=== PATIENT | female | born 1930 | race Caucasian/White ===

== ENCOUNTER 2020-01-29 13:13 | Inpatient (IN) | payer MEDICARE ==
[~2020-01-29] VITALS: Ht 157.5 cm; Wt 69.9 kg
[2020-01-29] VITALS (9 sets, daily range): BP systolic 111–138; BP diastolic 52–67
--- NOTE | 2020-01-29 13:29 | EKG ---
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
[2020-01-29] MEDS ORDERED: IV NORMAL SALINE 1,000ML 1,000 ML IV ONE (13:30)
--- NOTE | 2020-01-29 13:31 | PHYS DOC ---
General Adult EDM: Chief Complaint: WEAKNESS/GENERALIZED HPI: HPI: 89-year-old female presents with increasing weakness for the last 5 days. She was in [place] visiting family until Saturday. She came back and has been feeling increasingly weak and tired all week. She denies any chest pain, shortness of breath, trauma, or falls. She just feels like she is a lot more tired. She denies fever or chills. She was initially reported as possible stroke, but the patient is alert oriented, able to answer all questions, and has no focal signs of deficit. Review of Systems: Review of Systems: Constitutional: General weakness. Denies fever or chills Eyes: Denies change in visual acuity HENT: Denies nasal congestion or sore throat Respiratory: Denies cough or shortness of breath Cardiovascular: Denies chest pain or edema GI: Denies abdominal pain, nausea, vomiting, bloody stools or diarrhea : Denies dysuria Musculoskeletal: Denies back pain or joint pain Integument: Denies rash Neurologic: Denies headache, focal weakness or sensory changes Endocrine: Denies polyuria or polydipsia Lymphatic: Denies swollen glands Psychiatric: Denies depression or anxiety Heart Score: Risk Factors: Risk Factors: DM, Current or recent (<one month) smoker, HTN, HLP, family history of CAD, obesity. Risk Scores: Score 0 - 3: 2.5% MACE over next 6 weeks - Discharge Home Score 4 - 6: 20.3% MACE over next 6 weeks - Admit for Clinical Observation Score 7 - 10: 72.7% MACE over next 6 weeks - Early Invasive Strategies Current Medications: Current Meds: Current Medications Medications (Trade) Dose Ordered Sig/Sheeba Start Time Stop Time Status Last Admin Dose Admin Sodium Chloride 1,000 ml @ 1,000 mls/hr 1X ONCE 01/29/20 13:30 01/29/20 14:29 UNV Physical Exam: PE: Constitutional: Well developed, well nourished, no acute distress, non-toxic appearance. [] HENT: Normocephalic, atraumatic, bilateral external ears normal, oropharynx moist, no oral exudates, nose normal. [] Eyes: PERRLA, EOMI, conjunctiva normal, no discharge. [] Neck: Normal range of motion, no tenderness, supple, no stridor. [] Cardiovascular:Heart rate regular rhythm, no murmur [] Lungs & Thorax: Bilateral breath sounds clear to auscultation [] Abdomen: Bowel sounds normal, soft, no tenderness, no masses, no pulsatile masses. [] Skin: Warm, dry, no erythema, no rash. [] Back: No tenderness, no CVA tenderness. [] Extremities: No tenderness, no cyanosis, no clubbing, ROM intact, no edema. [] Neurologic: Alert and oriented X 3, normal motor function, normal sensory function, no focal deficits noted. [] Psychologic: Affect normal, judgement normal, mood normal. [] EKG: EKG: Sinus rhythm, rate 75, leftward axis, no ST elevations or depressions. Radiology/Procedures: Radiology/Procedures: [] Impressions: CHEST AP ONLY 01/29/2020 1:18 PM INDICATION: Weakness COMPARISON: None available TECHNIQUE: Portable frontal view of the chest is provided. FINDINGS: The cardiomediastinal silhouette is within normal limits. Lungs are clear. Calcified atheromatous plaque of thoracic aorta. There are no significant pleural effusions. There is no pulmonary vascular congestion. No pneumothorax. Mild glenohumeral osteoarthritis. IMPRESSION: There is no acute cardiopulmonary process. Electronically signed by: Edwige Wilkinson MD (01/29/2020 1:59 PM) [facility] DICTATED AND SIGNED BY: EDWIGE WILKINSON MD DATE: 01/29/20 1359 CC: OLY KURTZ DO; FREDIS MCCARTY MD ~ Course & Med Decision Making: Course & Med Decision Making Pertinent Labs and Imaging studies reviewed. (See chart for details) The patient's chest x-ray is unremarkable. Her labs are significant for hemoglobin of 5.6 and a hematocrit of 17.3. I have no previous for comparison. Do not see any active source of bleeding at this time. We will transfuse her 1 unit. I will admit her to the hospital. I spoke with Dr. Delgado and he has accepted the patient for admission. [] José Disclaimer: José Disclaimer: This electronic medical record was generated, in whole or in part, using a voice recognition dictation system. Departure Departure: Impression: Primary Impression: Anemia Qualified Codes: D64.9 - Anemia, unspecified Disposition: ADMITTED INPATIENT Admitting Physician: Wiliam Delgado Condition: STABLE Justification of Admission: Justification of Admission: Justification of Admission Dx: Yes Comments: Severe anemia with a hemoglobin of 5.6 OLY KURTZ DO Jan 29, 2020 13:31
[2020-01-29 13:50] LABS: BASO # 0.1 x10^3/uL (0.0-0.2); BASO % 1 % (0-3); EOS % 0 % (0-3); LYMPH # 1.5 x10^3/uL (1.0-4.8); LYMPH % 27 % (24-48); MEAN CORPUSCULAR HEMOGLOBIN 28 pg (25-35); MEAN CORPUSCULAR HGB CONC 32 g/dL (31-37); MEAN CORPUSCULAR VOLUME 88 fL (79-100); MONO # 0.3 x10^3/uL (0.0-1.1); MONO % 5 % (0-9); NEUT # 3.8 x10^3uL (1.8-7.7); NEUT % 67 % (31-73); PLATELET COUNT 218 x10^3/uL (140-400); RED BLOOD COUNT 1.97 x10^6/uL (3.50-5.40); RED CELL DISTRIBUTION WIDTH 16.1 % (11.5-14.5); WHITE BLOOD COUNT 5.6 x10^3/uL (4.0-11.0)
[2020-01-29 13:55] LABS: HEMATOCRIT 17.3 % (36.0-47.0); HEMOGLOBIN 5.6 g/dL (12.0-15.5)
[2020-01-29 13:58] LABS: CALCIUM 8.4 mg/dL (8.5-10.1); CREATININE 1.4 mg/dL (0.6-1.0); GFR 35.5; POTASSIUM 3.8 mmol/L (3.5-5.1)
--- NOTE | 2020-01-29 14:02 | RAD ---
CHEST AP ONLY 01/29/2020 1:18 PM INDICATION: Weakness COMPARISON: None available TECHNIQUE: Portable frontal view of the chest is provided. FINDINGS: The cardiomediastinal silhouette is within normal limits. Lungs are clear. Calcified atheromatous plaque of thoracic aorta. There are no significant pleural effusions. There is no pulmonary vascular congestion. No pneumothorax. Mild glenohumeral osteoarthritis. IMPRESSION: There is no acute cardiopulmonary process. Electronically signed by: Mague Judd MD (01/29/2020 1:59 PM) [facility]
[2020-01-29 14:03] LABS: ALBUMIN 2.9 g/dL (3.4-5.0); TOTAL BILIRUBIN 0.3 mg/dL (0.2-1.0); TOTAL PROTEIN 5.8 g/dL (6.4-8.2)
[2020-01-29] MEDS ORDERED: PANTOPRAZOLE IV 40 MG VIAL. IVP ONE (15:00)
[2020-01-29] MEDS ORDERED: ACET325O6 PO (21:30)
[2020-01-29] MEDS ORDERED: APIX5TAB3 PO (21:41)
[2020-01-29] MEDS ORDERED: MIRT45TA2 PO (21:41)
[2020-01-29] MEDS ORDERED: BISA5TAB4 PO (21:41)
[2020-01-29] MEDS ORDERED: METO25TA2 PO (21:41)
[2020-01-29] MEDS ORDERED: ATOR40TA PO (21:41)
[2020-01-29] MEDS ORDERED: ACET325T9 PO ×2 (21:41→21:42)
[2020-01-29] MEDS ORDERED: AMLO5TAB4 PO (21:41)
[2020-01-29] MEDS ORDERED: POLY17PO5 PO (21:41)
[2020-01-29] MEDS ORDERED: POTA10TA4 PO (21:41)
[2020-01-29 21:51] LABS: RED BLOOD COUNT 2.21 x10^6/uL (3.50-5.40); RED CELL DISTRIBUTION WIDTH 15.7 % (11.5-14.5); WHITE BLOOD COUNT 5.6 x10^3/uL (4.0-11.0)
[2020-01-29 21:53] LABS: HEMATOCRIT 19.5 % (36.0-47.0); HEMOGLOBIN 6.5 g/dL (12.0-15.5)
[2020-01-30] VITALS (8 sets, daily range): BP systolic 117–135; BP diastolic 55–68
[2020-01-30 07:16] LABS: BASO % 1 % (0-3); EOS # 0.1 x10^3/uL (0.0-0.7); EOS % 2 % (0-3); HEMATOCRIT 23.5 % (36.0-47.0); HEMOGLOBIN 8.1 g/dL (12.0-15.5); LYMPH # 1.6 x10^3/uL (1.0-4.8); LYMPH % 27 % (24-48); MEAN CORPUSCULAR HEMOGLOBIN 30 pg (25-35); MEAN CORPUSCULAR HGB CONC 34 g/dL (31-37); MEAN CORPUSCULAR VOLUME 87 fL (79-100); MONO # 0.5 x10^3/uL (0.0-1.1); MONO % 8 % (0-9); NEUT # 3.6 x10^3uL (1.8-7.7); NEUT % 62 % (31-73); PLATELET COUNT 205 x10^3/uL (140-400); RED BLOOD COUNT 2.72 x10^6/uL (3.50-5.40); RED CELL DISTRIBUTION WIDTH 14.8 % (11.5-14.5); WHITE BLOOD COUNT 5.7 x10^3/uL (4.0-11.0)
[2020-01-30 07:41] LABS: CALCIUM 8.1 mg/dL (8.5-10.1); CREATININE 1.2 mg/dL (0.6-1.0); GFR 42.4; POTASSIUM 3.8 mmol/L (3.5-5.1)
[2020-01-30] MEDS: PANTOPRAZOLE IV 40 MG VIAL. IVP SCH ×2 (08:39→20:27)
[2020-01-30 10:01] LABS: BACTERIA,URINE MANY /HPF (0-FEW); BILIRUBIN,URINE NEG (NEG); CLARITY,URINE HAZY; COLOR,URINE YELLOW; GLUCOSE,URINE NEG (NEG); NITRITE,URINE NEG (NEG); SQUAMOUS EPITHELIAL CELL,UR MOD /LPF; WBC,URINE >40 /HPF (0-4)
--- NOTE | 2020-01-30 18:27 | HP ---
ADMIT DATE: 01/29/2020 HISTORY OF PRESENT ILLNESS: The patient is an 89-year-old female patient who presented with increasing weakness over the last 5 days. She was in [place] visiting her family until Saturday. She came back and has been feeling increasingly weak and tired all the week; however, she denied any chest pain, shortness of breath, trauma or fall. She just feels like she is a lot more tired. Denied any fever or chills. She was initially reported as possible stroke. The patient was able to answer all questions. She has no focal deficits on arrival. She was basically extensively investigated in the Emergency Room and her lab work showed that she has severe normochromic normocytic anemia with hemoglobin only 5.6, hematocrit 17.3. She was admitted and was given 2 units of packed RBCs. She is on apixaban. PAST MEDICAL HISTORY: Significant for hypertension, hyperlipidemia, atrial fibrillation. She apparently has colon cancer, status post partial colectomy. ALLERGIES: She has no known drug allergies. MEDICATIONS: She is currently on apixaban 5 mg twice a day, atorvastatin calcium 40 mg daily, metoprolol succinate 12.5 mg daily, amlodipine besylate 5 mg daily, Tylenol 650 mg every 4 hours, mirtazapine 45 mg at bedtime, potassium citrate 10 mEq once a day, bisacodyl 5 mg tablet 3 times a week and polyethylene glycol 17 g daily. FAMILY HISTORY: Noncontributory. SOCIAL HISTORY: She lives with one of her daughters. She does not smoke, drink alcohol or use recreational drugs. 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 LABORATORY DATA: Her lab work on arrival showed a white cell count 5600, hemoglobin 5.6, hematocrit 17.3, MCV 88 and platelet count 218,000 with normal manual differential. Her chemistry showed a serum sodium 137, potassium 3.8, chloride 104, bicarbonate 25, anion gap of 8, BUN 29, creatinine 1.4, estimated GFR was 35 mL per minute. Her glucose 174, calcium was 8.4. Her total bilirubin, AST, ALT, alkaline phosphatase were normal. Total protein was 5.8, albumin was 2.9. Her urinalysis showed that the urine was yellow, hazy with a pH of 5.5, specific gravity of 1.020. The urine was negative for protein, glucose, ketones, blood, nitrite, and small amount of leukocyte esterase, 1-2 rbc's, more than 40 wbc's, and she has too many bacteria. ASSESSMENT AND PLAN: In summary, this is an 89-year-old female patient who was admitted with worsening weakness and easy fatigability. She was found to have normochromic normocytic anemia, likely due to blood loss, although she is already on apixaban. Denied using any nonsteroidal anti-inflammatory medication. Denied any hematemesis, melena or hematochezia. Denied any hemoptysis or epistaxis. She apparently was admitted, typed and crossed 2 units of packed RBCs. We will also order her iron studies and stool for occult blood. We will hold her apixaban and put her on a clear liquid diet and follow her H and H closely. ALEX TERAN MD DR: ASHLYN/yong JOB#: [id number] / [id number]
[2020-01-30 18:53] LABS: HEMATOCRIT 26.7 % (36.0-47.0); HEMOGLOBIN 8.9 g/dL (12.0-15.5)
[2020-01-31 04:56] VITALS: BP 118/56
[2020-01-31 07:00] VITALS: BP 116/62
[2020-01-31 07:13] LABS: HEMATOCRIT 24.1 % (36.0-47.0); HEMOGLOBIN 8.1 g/dL (12.0-15.5); RED BLOOD COUNT 2.73 x10^6/uL (3.50-5.40); RED CELL DISTRIBUTION WIDTH 15.1 % (11.5-14.5)
[2020-01-31 07:29] LABS: ALBUMIN 2.6 g/dL (3.4-5.0); CALCIUM 8.2 mg/dL (8.5-10.1); CREATININE 1.3 mg/dL (0.6-1.0); GFR 38.7; POTASSIUM 3.7 mmol/L (3.5-5.1); TOTAL BILIRUBIN 0.5 mg/dL (0.2-1.0); TOTAL PROTEIN 5.1 g/dL (6.4-8.2)
--- NOTE | 2020-01-31 08:18 | PN ---
DATE: 01/30/2020 SUBJECTIVE: The patient is resting, slightly propped up in bed, in no apparent respiratory distress. She is awake, alert, responding mostly appropriately. She denied any complaint. She did receive 2 units of packed RBCs. Her H and H was 8.1 and 23.5. PHYSICAL EXAMINATION: GENERAL: On examining her, she looked well and was clearly in no apparent respiratory distress. No pallor, jaundice, cyanosis, or thyromegaly. No jugular venous distention or limb edema. VITAL SIGNS: Her heart rate was 74, blood pressure was 132/82, temperature was 98.7, respiratory rate 20, and oxygen saturation was 96%. HEAD, EYES, EARS, NOSE AND THROAT: Normocephalic, atraumatic. NECK: Supple. HEART: Showed normal first and second sounds. No gallop, rub or murmur. CHEST: Clear to auscultation. No crepitation or rhonchi. ABDOMEN: Distended, soft, nontender. NEUROLOGIC: She is awake, alert, responding appropriately. All cranial nerves intact. She moves extremities without difficulty. LABORATORY DATA: Her lab work this morning showed a white cell count 5700, hemoglobin 8.1, hematocrit 23.5, MCV 87 and platelet count 205,000. Her chemistry showed a serum sodium 141, potassium 3.8, chloride 109, bicarbonate 24, anion gap of 8, BUN 23, creatinine 1.2, estimated GFR was 42 mL per minute. Her glucose was 96, calcium was 8.1. Total serum iron was 47, TIBC was 337 and iron saturation was 14%. ASSESSMENT: In summary, this is an 89-year-old female patient who came in with marked weakness due to severe anemia that is normochromic, normocytic. She does have also mild acute on chronic kidney injury and protein-calorie malnutrition, serum albumin is only 2.9. She apparently was on apixaban for atrial fibrillation; however, now she is in sinus rhythm. We held her apixaban. I think this needs to be discontinued altogether. She needs to be evaluated by custodial manager. We spoke with her daughter who stated that she has colonoscopy on yearly basis. I would repeat her H and H tonight and again tomorrow morning. ALEX TERAN MD DR: ASHLYN/yong JOB#: [id number] / [id number]
[2020-01-31] MEDS: PANTOPRAZOLE IV 40 MG VIAL. IVP SCH (09:00)
[2020-01-31 11:00] VITALS: BP 116/62
--- NOTE | 2020-01-31 17:53 | DS ---
DATE OF DISCHARGE: 01/31/2020 HOSPITAL COURSE: The patient is an 89-year-old female patient, who was brought to the Emergency Room with generalized weakness and easy fatigability. On evaluating her in the Emergency Room, she was found to be extremely anemic with hemoglobin 5.6, hematocrit 17.3, her MCV was 88 which is well within normal limits, indicating that she probably has lost blood recently. However, her serum iron was low as well as the iron saturation. The TIBC was on the higher side at 337 indicating that she has also element of chronic blood loss. She has very poor memory; however, we spoke with her daughter and said that she ____ yearly colonoscopy by ____. She is on apixaban for atrial fibrillation. The patient had received 2 units of packed RBCs and she remained stable. She usually follows with ____. A decision was made to discharge her home to follow with him as an outpatient. PHYSICAL EXAMINATION: GENERAL: When I examined her this afternoon, she looked somewhat pale, but no jaundice, cyanosis or thyromegaly. No lymphadenopathy, no thyromegaly. No jugular venous distention. No limb edema. VITAL SIGNS: Her heart rate was 68, blood pressure 116/62, temperature was 97.8, respiratory rate 15 and oxygen saturation was 98%. HEAD, EYES, EARS, NOSE AND THROAT: Showed normocephalic, atraumatic. NECK: Supple. HEART: Showed normal first and second heart sounds. No gallop or murmur. CHEST: Clear to auscultation. No crepitation or rhonchi. ABDOMEN: Slightly distended, soft, nontender. NEUROLOGIC: She is somewhat hard of hearing, but otherwise all cranial nerves intact. EXTREMITIES: She moves extremities without difficulty. She ambulates without assistance or assistive devices. LABORATORY DATA: Showed a white cell count 5000, hemoglobin 8.1, hematocrit 24, MCV 88 and platelet count 232,000. Her chemistry showed a serum sodium 139, potassium 3.7, chloride 108, bicarbonate 25, anion gap of 6, BUN 24, creatinine was 1.3. Estimated GFR was 38 mL per minute. Her glucose was 92. Calcium was 8.2. Total bilirubin, AST, ALT, alkaline phosphatase were normal. Total protein was 5.1, albumin was 2.6. DISCHARGE MEDICATIONS: The patient will be discharged home to continue on Tylenol 650 mg every 4 hours as needed, amlodipine besylate 5 mg daily, atorvastatin calcium 40 mg at bedtime, bisacodyl 5 mg tablet once a day, metoprolol succinate 25 mg once a day, mirtazapine for Remeron 45 mg at bedtime and polyethylene glycol 17 grams daily, potassium chloride 10 mEq daily. We did discontinue her apixaban as she is definitely bleeding. FINAL DISCHARGE DIAGNOSES: 1. Acute blood loss anemia with marked weakness due to severe anemia. 2. She has also element of acute on chronic kidney injury. 3. Protein-calorie malnutrition. 4. Atrial fibrillation, rate controlled, well anticoagulated. 5. Hypertension. 6. Hyperlipidemia. She apparently had colon cancer, status post partial colectomy with end-to-end anastomosis and she gets colonoscopies yearly. 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 ALEX TERAN MD DR: ASHLYN/yong JOB#: [id number] / [id number]
== END 2020-01-31 15:30 | disposition home or self-care (01) | DRG 811 ==
LOC: ER 13:13 → 1 SOUTH 16:33 → ICU 16:34
PROVIDERS: ADMIT Internal Medicine; ATTEND Internal Medicine
PROC: 30233N1 Transfusion of Nonautologous Red Blood Cells into Peripheral Vein, Percutaneous Approach (ICD-10-PCS; principal; 2020-01-31)
DX: D62 Acute posthemorrhagic anemia (principal); E43 Unspecified severe protein-calorie malnutrition; N17.9 Acute kidney failure, unspecified; G81.94 Hemiplegia, unspecified affecting left nondominant side; E78.5 Hyperlipidemia, unspecified; I48.91 Unspecified atrial fibrillation; N18.9 Chronic kidney disease, unspecified; I12.9 Hypertensive chronic kidney disease with stage 1 through stage 4 chronic kidney disease, or unspecified chronic kidney disease; Z68.28 Body mass index [BMI] 28.0-28.9, adult; Z90.49 Acquired absence of other specified parts of digestive tract; Z85.038 Personal history of other malignant neoplasm of large intestine; Z86.73 Personal history of transient ischemic attack (TIA), and cerebral infarction without residual deficits
CPT/HCPCS: 36415; 71045; 80048; 80053; 81001; 83540; 83550; 84484; 85014; 85018; 85025; 85027; 86850; 86900; 86901; 86920; 87086; 93005; 96361; 96374; C9113; P9016; 99285-25; J7030

== ENCOUNTER 2020-04-03 12:38 | Emergency (ER) | payer MEDICARE ==
[~2020-04-03] VITALS: Ht 157.5 cm; Wt 68.0 kg
[~2020-04-03 12:38] MED LIST: ACET325O6 PO; ACET325T9 PO; AMLO5TAB4 PO; APIX5TAB3 PO; ATOR40TA PO; BISA5TAB4 PO; METO25TA2 PO; MIRT45TA2 PO; POLY17PO5 PO; POTA10TA4 PO
[2020-04-03] MEDS ORDERED: IV NORMAL SALINE 500ML 500 ML IV ONE (13:00)
[2020-04-03 13:16] LABS: BASO # 0.1 x10^3/uL (0.0-0.2); BASO % 1 % (0-3); EOS # 0.1 x10^3/uL (0.0-0.7); EOS % 1 % (0-3); HEMATOCRIT 41.7 % (36.0-47.0); HEMOGLOBIN 13.2 g/dL (12.0-15.5); LYMPH # 1.7 x10^3/uL (1.0-4.8); LYMPH % 24 % (24-48); MEAN CORPUSCULAR HEMOGLOBIN 29 pg (25-35); MEAN CORPUSCULAR HGB CONC 32 g/dL (31-37); MEAN CORPUSCULAR VOLUME 90 fL (79-100); MONO # 0.5 x10^3/uL (0.0-1.1); MONO % 8 % (0-9); NEUT # 4.8 x10^3uL (1.8-7.7); NEUT % 67 % (31-73); PLATELET COUNT 260 x10^3/uL (140-400); RED BLOOD COUNT 4.62 x10^6/uL (3.50-5.40); RED CELL DISTRIBUTION WIDTH 16.5 % (11.5-14.5); WHITE BLOOD COUNT 7.1 x10^3/uL (4.0-11.0)
[2020-04-03 13:21] LABS: CALCIUM 9.7 mg/dL (8.5-10.1); CREATININE 1.8 mg/dL (0.6-1.0); GFR 26.6; POTASSIUM 4.5 mmol/L (3.5-5.1)
[2020-04-03 13:27] LABS: ALBUMIN 3.6 g/dL (3.4-5.0); ALBUMIN/GLOBULIN RATIO 1.2 (1.0-1.7); TOTAL BILIRUBIN 0.7 mg/dL (0.2-1.0); TOTAL PROTEIN 6.7 g/dL (6.4-8.2)
[2020-04-03] MEDS ORDERED: dilTIAZem 25 MG/5 ML VIAL IVP ONE (13:30)
[2020-04-03] MEDS ORDERED: IV NORMAL SALINE 1,000ML 1,000 ML IV ONE (13:30)
--- NOTE | 2020-04-03 13:32 | RAD ---
AP portable chest 04/03/2020. Reason for exam: Tachycardia. Shortness of breath. Comparison is made with a study of 01/29/2020. No new infiltrate is seen. There is no apparent pleural fluid. The heart is mildly enlarged, but appears unchanged. IMPRESSION: Stable radiographic appearance. Electronically signed by: Christos Benítez Jr., MD (04/03/2020 1:29 PM) [id number]
--- NOTE | 2020-04-03 13:36 | PHYS DOC ---
Past History Past Medical History: A-Fib, Cancer, Constipation, High Cholesterol, Hypertension Past Surgical History: Appendectomy, Cholecystectomy, Hysterectomy, Other Additional Past Surgical Histo: cancer surgery Alcohol Use: None General Adult EDM: Chief Complaint: WEAKNESS/GENERALIZED HPI: HPI: 89-year-old female accompanied by her daughter presents with weakness and tachycardia. Patient was recently diagnosed with atrial fibrillation. She is on Toprol. She presents today because her heart rate seemed high and she is feeling very tired. Most of her history comes from the daughter who accompanies her. The patient had a stroke within the last year and has made it difficult for her to formulate words. She does not in agreement to the history given and to my questions. Patient is also reported to have a possible GI bleed that she is getting worked up for by her primary physician. They are working on that this week. Patient denies fever chills. On arrival her heart rate is 139. Review of Systems: Review of Systems: Constitutional: Denies fever or chills. Fatigue. Eyes: Denies change in visual acuity HENT: Denies nasal congestion or sore throat Respiratory: Denies cough or shortness of breath Cardiovascular: Tachycardia. Denies chest pain or edema GI: Denies abdominal pain, nausea, vomiting, bloody stools or diarrhea : Denies dysuria Musculoskeletal: Denies back pain or joint pain Integument: Denies rash Neurologic: Denies headache, focal weakness or sensory changes Endocrine: Denies polyuria or polydipsia Lymphatic: Denies swollen glands Psychiatric: Denies depression or anxiety Heart Score: Risk Factors: Risk Factors: DM, Current or recent (<one month) smoker, HTN, HLP, family history of CAD, obesity. Risk Scores: Score 0 - 3: 2.5% MACE over next 6 weeks - Discharge Home Score 4 - 6: 20.3% MACE over next 6 weeks - Admit for Clinical Observation Score 7 - 10: 72.7% MACE over next 6 weeks - Early Invasive Strategies Current Medications: Current Meds: Current Medications Medications (Trade) Dose Ordered Sig/Sheeba Start Time Stop Time Status Last Admin Dose Admin Diltiazem HCl (Cardizem Iv Push) 10 mg 1X ONCE 04/03/20 13:30 04/03/20 13:31 DC Sodium Chloride 1,000 ml @ 1,000 mls/hr 1X ONCE 04/03/20 13:30 04/03/20 14:29 Allergies: Allergies: Allergies Coded Allergies Type Severity Reaction Last Updated Verified No Known Drug Allergies 01/29/20 No Physical Exam: PE: Constitutional: Well developed, well nourished, no acute distress, non-toxic appearance. [] HENT: Normocephalic, atraumatic, bilateral external ears normal, oropharynx moist, no oral exudates, nose normal. [] Eyes: PERRLA, EOMI, conjunctiva normal, no discharge. [] Neck: Normal range of motion, no tenderness, supple, no stridor. [] Cardiovascular: Heart rate 139, irregular rhythm, no murmur [] Lungs & Thorax: Bilateral breath sounds clear to auscultation [] Abdomen: Bowel sounds normal, soft, no tenderness, no masses, no pulsatile masses. [] Skin: Warm, dry, no erythema, no rash. [] Back: No tenderness, no CVA tenderness. [] Extremities: No tenderness, no cyanosis, no clubbing, ROM intact, no edema. [] Neurologic: Difficulty with word formulation. alert and oriented X 3, normal motor function, normal sensory function, no focal deficits noted. [] Psychologic: Affect normal, judgement normal, mood normal. [] Current Patient Data: Labs: Laboratory Tests Test 04/03/20 12:55 White Blood Count 7.1 x10^3/uL (4.0-11.0) Red Blood Count 4.62 x10^6/uL (3.50-5.40) Hemoglobin 13.2 g/dL (12.0-15.5) Hematocrit 41.7 % (36.0-47.0) Mean Corpuscular Volume 90 fL (79-100) Mean Corpuscular Hemoglobin 29 pg (25-35) Mean Corpuscular Hemoglobin Concent 32 g/dL (31-37) Red Cell Distribution Width 16.5 % (11.5-14.5) H Platelet Count 260 x10^3/uL (140-400) Neutrophils (%) (Auto) 67 % (31-73) Lymphocytes (%) (Auto) 24 % (24-48) Monocytes (%) (Auto) 8 % (0-9) Eosinophils (%) (Auto) 1 % (0-3) Basophils (%) (Auto) 1 % (0-3) Neutrophils # (Auto) 4.8 x10^3uL (1.8-7.7) Lymphocytes # (Auto) 1.7 x10^3/uL (1.0-4.8) Monocytes # (Auto) 0.5 x10^3/uL (0.0-1.1) Eosinophils # (Auto) 0.1 x10^3/uL (0.0-0.7) Basophils # (Auto) 0.1 x10^3/uL (0.0-0.2) Sodium Level 136 mmol/L (136-145) Potassium Level 4.5 mmol/L (3.5-5.1) Chloride Level 102 mmol/L (98-107) Carbon Dioxide Level 21 mmol/L (21-32) Anion Gap 13 (6-14) Blood Urea Nitrogen 15 mg/dL (7-20) Creatinine 1.8 mg/dL (0.6-1.0) H Estimated GFR (Cockcroft-Gault) 26.6 BUN/Creatinine Ratio 8 (6-20) Glucose Level 127 mg/dL (70-99) H Calcium Level 9.7 mg/dL (8.5-10.1) Total Bilirubin 0.7 mg/dL (0.2-1.0) Aspartate Amino Transferase (AST) 16 U/L (15-37) Alanine Aminotransferase (ALT) 16 U/L (14-59) Alkaline Phosphatase 91 U/L (46-116) Troponin I Quantitative 0.031 ng/mL (0-0.055) Total Protein 6.7 g/dL (6.4-8.2) Albumin 3.6 g/dL (3.4-5.0) Albumin/Globulin Ratio 1.2 (1.0-1.7) EKG: EKG: [] Radiology/Procedures: Radiology/Procedures: [] Course & Med Decision Making: Course & Med Decision Making Pertinent Labs and Imaging studies reviewed. (See chart for details) The patient's EKG is significant for atrial fibrillation, rate 139. The patient 's labs are significant for an elevated creatinine of 1.8. This is a bit higher than her baseline of 1.3-1.4. I have given her 1.5 liters of normal saline. For her atrial fibrillation I gave the patient 10 mg of Cardizem IV. She cardioverted shortly after. Her heart rate is now 70. Pressure 126/74. The patient's urinalysis was suggestive of UTI. I will treat her with Keflex for 5 days. She is stable for discharge at this time. [] Dragon Disclaimer: Dragon Disclaimer: This electronic medical record was generated, in whole or in part, using a voice recognition dictation system. Departure Departure: Impression: Primary Impression: Atrial fibrillation Qualified Codes: I48.0 - Paroxysmal atrial fibrillation Additional Impression: UTI (urinary tract infection) Qualified Codes: N30.01 - Acute cystitis with hematuria Disposition: HOME/RESIDENCE PRIOR TO ADM Condition: STABLE Referrals: FREDIS MCCARTY MD (PCP) Patient Instructions: Atrial Fibrillation, Yyuq-[id number], Urinary Tract Infection, Aepw-ro-Idhp Scripts Cephalexin (KEFLEX) 500 Mg Capsule 1 CAP PO TID for UTI for 5 Days, #15 CAP 0 Refills Prov: OLY KURTZ DO 04/03/20 Justification of Admission: Justification of Admission: Justification of Admission Dx: N/A OLY KURTZ DO Apr 03, 2020 13:36
[2020-04-03 15:30] VITALS: BP 141/91
--- NOTE | 2020-04-03 15:49 | EKG ---
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
[2020-04-03 16:33] LABS: BACTERIA,URINE MOD /HPF (0-FEW); BILIRUBIN,URINE NEG (NEG); CLARITY,URINE CLOUDY; COLOR,URINE AMBER; GLUCOSE,URINE NEG (NEG); GRANULAR CASTS,URINE OCC /HPF; HYALINE CASTS, URINE MOD /HPF; NITRITE,URINE NEG (NEG); SQUAMOUS EPITHELIAL CELL,UR FEW /LPF; UROBILINOGEN,URINE 0.2 mg/dL (0.2 mg/dL)
[2020-04-03] MEDS ORDERED: CEPH-264 PO (16:40)
[2020-04-03] MEDS ORDERED: CEPHALEXIN 250 MG CAPSULE PO ONE (16:45)
[2020-04-04] MEDS ORDERED: APIX5TAB3 PO (19:08)
[2020-04-04] MEDS ORDERED: CEPH-264 PO (19:08)
== END 2020-04-03 16:51 | disposition home or self-care (01) ==
LOC: ER 12:38
DX: I48.0 Paroxysmal atrial fibrillation (principal); N30.01 Acute cystitis with hematuria; E78.00 Pure hypercholesterolemia, unspecified; I10 Essential (primary) hypertension
CPT/HCPCS: 36415; 71045; 80053; 81001; 84484; 85025; 87086; 93005; 96361; 96374; 99285; J3490; J7030; J7040

== ENCOUNTER 2020-04-04 12:37 | Inpatient (IN) | payer MEDICARE ==
[~2020-04-04] VITALS: Ht 157.5 cm; Wt 66.7 kg
[2020-04-04] VITALS (8 sets, daily range): BP systolic 114–180; BP diastolic 52–114
[~2020-04-04 12:37] MED LIST changes: +CEPH-264 PO
--- NOTE | 2020-04-04 13:20 | EKG ---
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
[2020-04-04] MEDS ORDERED: METOPROLOL TARTRATE 5 MG/5 ML VIAL. IV ONE ×3 (13:30→14:30)
--- NOTE | 2020-04-04 13:45 | PHYS DOC ---
Past History Past Medical History: A-Fib, Cancer, Constipation, High Cholesterol, Hypertension Past Surgical History: Appendectomy, Cholecystectomy, Hysterectomy, Other Additional Past Surgical Histo: cancer surgery Alcohol Use: None Adult General Chief Complaint Chief Complaint: RAPID HEART RATE HPI HPI Patient is a 89-year-old female who presents with palpitations. Onset was prior to arrival. Patient was seen and evaluated at our facility yesterday and was found to be in atrial fibrillation with RVR, IV diltiazem bolus administered and resolve this issue. Today, patient complains of similar symptomology. She reports feelings of lightheaded, dizziness, and chest pressure. She also reports chronic right shoulder pain. Patient is taking all medications as prescribed. She takes metoprolol twice daily for rate control in outpatient setting which is managed by her mortgage loan specialist, she is on Eliquis for anticoagulation. She denies any known inciting events, ingestions, trauma, or other potential precipitating factors for her atrial fibrillation with rapid ventricular rate. Of note, majority of history is provided by patient's daughter who is legal guardian. Patient's daughter lives with patient. Patient's daughter confirmed patient is DNR status Review of Systems Review of Systems Fourteen body systems of review of systems have been reviewed. See HPI for pertinent positives and negative responses, other carrasco all other systems are negative, non-pertinent or non-contributory Current Medications Current Medications Current Medications Medications (Trade) Dose Ordered Sig/Sheeba Start Time Stop Time Status Last Admin Dose Admin Metoprolol Tartrate (Lopressor Vial) 5 mg 1X ONCE 04/04/20 13:30 04/04/20 13:31 DC 04/04/20 13:39 5 MG Allergies Allergies Allergies Coded Allergies Type Severity Reaction Last Updated Verified No Known Drug Allergies 01/29/20 No Physical Exam Physical Exam Constitutional: Well developed, well nourished, moderate distress, non-toxic appearance. HENT: Normocephalic, atraumatic, bilateral external ears normal, oropharynx moist, no oral exudates, nose normal. Eyes: PERRLA, EOMI, conjunctiva normal, no discharge. Neck: Normal range of motion, no tenderness, supple, no stridor. Cardiovascular: Tachycardic, irregular rhythm, no murmurs rubs or gallops Lungs & Thorax: Bilateral breath sounds clear to auscultation Abdomen: Bowel sounds normal, soft, no tenderness, no masses, no pulsatile masses. Nonsurgical abdomen, no peritoneal signs Skin: Warm, dry, no erythema, no rash. Back: No tenderness, no CVA tenderness. Extremities: Tenderness over right shoulder without any palpable abnormalities, fullness of left supraclavicular fossa versus contralateral side, no cyanosis, no clubbing, ROM intact, no edema. Neurologic: Alert and oriented X 3, grossly normal motor & sensory function, no focal deficits noted. Psychologic: Affect normal, judgement normal, mood normal. Current Patient Data Vital Signs Vital Signs Date Time Temp Pulse Resp B/P (MAP) Pulse Ox O2 Delivery O2 Flow Rate FiO2 04/04/20 13:39 138 143/99 Lab Results Laboratory Tests Test 04/04/20 13:10 White Blood Count 6.6 x10^3/uL Red Blood Count 4.57 x10^6/uL Hemoglobin 13.0 g/dL Hematocrit 41.1 % Mean Corpuscular Volume 90 fL Mean Corpuscular Hemoglobin 29 pg Mean Corpuscular Hemoglobin Concent 32 g/dL Red Cell Distribution Width 16.8 % Platelet Count 243 x10^3/uL Neutrophils (%) (Auto) 69 % Lymphocytes (%) (Auto) 21 % Monocytes (%) (Auto) 8 % Eosinophils (%) (Auto) 1 % Basophils (%) (Auto) 1 % Neutrophils # (Auto) 4.6 x10^3uL Lymphocytes # (Auto) 1.4 x10^3/uL Monocytes # (Auto) 0.5 x10^3/uL Eosinophils # (Auto) 0.0 x10^3/uL Basophils # (Auto) 0.1 x10^3/uL Sodium Level 139 mmol/L Potassium Level 4.8 mmol/L Chloride Level 103 mmol/L Carbon Dioxide Level 23 mmol/L Anion Gap 13 Blood Urea Nitrogen 15 mg/dL Creatinine 1.8 mg/dL Estimated GFR (Cockcroft-Gault) 26.6 BUN/Creatinine Ratio 8 Glucose Level 116 mg/dL Calcium Level 9.3 mg/dL Magnesium Level 2.1 mg/dL Total Bilirubin 0.6 mg/dL Aspartate Amino Transf (AST/SGOT) 20 U/L Alanine Aminotransferase (ALT/SGPT) 20 U/L Alkaline Phosphatase 95 U/L Troponin I Quantitative 0.039 ng/mL [id number] Natriuretic Peptide 9505 pg/mL Total Protein 6.5 g/dL Albumin 3.6 g/dL Albumin/Globulin Ratio 1.2 Lipase 93 U/L Current Medications Medications (Trade) Dose Ordered Sig/Sheeba Route PRN Reason Start Time Stop Time Status Last Admin Dose Admin Metoprolol Tartrate (Lopressor Vial) 5 mg 1X ONCE IV 04/04/20 13:30 04/04/20 13:31 DC 04/04/20 13:39 Metoprolol Tartrate (Lopressor Vial) 5 mg 1X ONCE IV 04/04/20 14:00 04/04/20 14:01 DC 04/04/20 14:13 Metoprolol Tartrate (Lopressor Vial) 5 mg 1X ONCE IV 04/04/20 14:30 04/04/20 14:31 DC 04/04/20 14:30 Lorazepam (Ativan Inj) 0.5 mg 1X ONCE IVP 04/04/20 15:00 04/04/20 15:01 DC 04/04/20 15:08 Furosemide (Lasix) 40 mg 1X ONCE IVP 04/04/20 15:00 04/04/20 15:01 DC 04/04/20 16:33 Adenosine (Adenocard) 6 mg STK-MED ONCE IV 04/04/20 15:33 04/04/20 15:34 DC Diltiazem HCl (Cardizem Iv Push) 10 mg 1X ONCE IVP 04/04/20 16:15 04/04/20 16:16 DC 04/04/20 16:33 EKG EKG EKG ordered and interpreted by myself at 1333 hrs. as tachycardic narrow complex rhythm at 140 bpm, no axis deviation, prolonged QTC at 505, no acute ischemic findings, no fascicular blocks, no STEMI Subsequent EKG ordered and interpreted by myself at 1458 hrs. after x3 5 mg Lopressor pushes Remains narrow complex tachycardia at 126 bpm, prolonged QTC 506 otherwise unremarkable intervals, left axis deviation, no obvious fascicular blocks, concern for ST elevation greater than 1 mm in leads V2, no elevation in contiguous leads or reciprocal changes noted, no STEMI Radiology/Procedures Radiology/Procedures PROCEDURE: PORTABLE CHEST 1V INDICATION: Reason: sob / Spl. Instructions: / History: COMPARISON: April 03, 2020 FINDINGS: Single view of chest obtained. Enlarged cardiac silhouette with calcific atherosclerosis. Appearance the lungs is similar to prior without a new region of airspace consolidation. Degenerative changes the shoulders. IMPRESSION: * No major change from prior. Electronically signed by: Wild Beltre MD (04/04/2020 2:01 PM) [id number] Course & Med Decision Making Course & Med Decision Making Airway patent, breathing somewhat labored with mild accessory muscle use, IV access obtained, subsequent vitals obtained remarkable for tachycardia Comprehensive history, physical exam, and chart review obtained, subsequent labs and imaging studies ordered EKG interpretation significant for SVT, x3 5 mg Lopressor pushes did not result in rate control, 6 mg and 12 mg of adenosine administered with no control in patient's right, 10 mg diltiazem push which eventually resulted in rate control She does appear mildly fluid overloaded and so, IV 40 mg Lasix administered for diuresis Nonetheless, high risk patient with recurrent atrial fibrillation with RVR who although stabilized in our ER, will require further medical management and intervention I discussed this with patient and patient's daughter, both of which were agreeable for admission for further medical observation, management, and cardiology consultation On-call hospitalist, Dr. Patel, was contacted and case discussed. He agreed to the admission on continued diltiazem drip, continued inpatient medical management and cardiology consultation Patient stable at time of ER departure, all questions and concerns addressed prior to transport to [facility] for further medical care Dragon Disclaimer Dragon Disclaimer This electronic medical record was generated, in whole or in part, using a voice recognition dictation system. The HEART Score for CP Pts HEART Score for Chest Pain: HEART Score for Chest Pain Response (Comments) Value History Highly Suspicious 2 ECG Normal 0 Age > 65 2 Risk Factors >3 Risk Factors or Hx CAD 2 Troponin < Normal Limit 0 Total 6 Risk Factors: Risk Factors: DM, Current or recent (<one month) smoker, HTN, HLP, family history of CAD, obesity. Risk Scores: Score 0 - 3: 2.5% MACE over next 6 weeks - Discharge Home Score 4 - 6: 20.3% MACE over next 6 weeks - Admit for Clinical Observation Score 7 - 10: 72.7% MACE over next 6 weeks - Early Invasive Strategies Departure Departure: Impression: Primary Impression: Atrial fibrillation with RVR Additional Impressions: DNR (do not resuscitate) CHF (congestive heart failure) Disposition: 09 ADMITTED INPATIENT Admitting Physician: Ji Patel Condition: STABLE Referrals: FREDIS MCCARTY MD (PCP) Justification of Admission: Justification of Admission: Justification of Admission Dx: Yes (Atrial fibrillation with RVR, on diltiazem drip) CHF: Cardiac Arrhythmias Problem Qualifiers MARANDA STORY DO Apr 04, 2020 13:45
[2020-04-04 13:50] LABS: BASO # 0.1 x10^3/uL (0.0-0.2); BASO % 1 % (0-3); EOS % 1 % (0-3); HEMATOCRIT 41.1 % (36.0-47.0); LYMPH # 1.4 x10^3/uL (1.0-4.8); LYMPH % 21 % (24-48); MEAN CORPUSCULAR HEMOGLOBIN 29 pg (25-35); MEAN CORPUSCULAR HGB CONC 32 g/dL (31-37); MEAN CORPUSCULAR VOLUME 90 fL (79-100); MONO # 0.5 x10^3/uL (0.0-1.1); MONO % 8 % (0-9); NEUT # 4.6 x10^3uL (1.8-7.7); NEUT % 69 % (31-73); PLATELET COUNT 243 x10^3/uL (140-400); RED BLOOD COUNT 4.57 x10^6/uL (3.50-5.40); RED CELL DISTRIBUTION WIDTH 16.8 % (11.5-14.5); WHITE BLOOD COUNT 6.6 x10^3/uL (4.0-11.0)
[2020-04-04 13:54] LABS: CALCIUM 9.3 mg/dL (8.5-10.1); CREATININE 1.8 mg/dL (0.6-1.0); GFR 26.6; POTASSIUM 4.8 mmol/L (3.5-5.1)
--- NOTE | 2020-04-04 14:04 | RAD ---
INDICATION: Reason: sob / Spl. Instructions: / History: COMPARISON: April 03, 2020 FINDINGS: Single view of chest obtained. Enlarged cardiac silhouette with calcific atherosclerosis. Appearance the lungs is similar to prior without a new region of airspace consolidation. Degenerative changes the shoulders. IMPRESSION: * No major change from prior. Electronically signed by: Wild Beltre MD (04/04/2020 2:01 PM) [id number]
[2020-04-04 14:06] LABS: ALBUMIN 3.6 g/dL (3.4-5.0); ALBUMIN/GLOBULIN RATIO 1.2 (1.0-1.7); MAGNESIUM 2.1 mg/dL (1.8-2.4); TOTAL BILIRUBIN 0.6 mg/dL (0.2-1.0); TOTAL PROTEIN 6.5 g/dL (6.4-8.2)
[2020-04-04] MEDS ORDERED: FUROSEMIDE 40 MG/4 ML VIAL IVP ONE (15:00)
[2020-04-04] MEDS ORDERED: ADENOSINE 6 MG/2 ML VIAL IV ONE (15:33)
--- NOTE | 2020-04-04 15:53 | EKG ---
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
[2020-04-04] MEDS ORDERED: dilTIAZem 25 MG/5 ML VIAL IVP ONE (16:15)
[2020-04-04] MEDS ORDERED: dilTIAZem VIAL 125 MG in IV NORMAL SALINE 100ML 100 ML IV PRN (17:00)
--- NOTE | 2020-04-04 17:13 | HP ---
ADMIT DATE: ATTENDING PHYSICIAN: Dr. Erazo CHIEF COMPLAINT: Rapid heart rate. HISTORY OF PRESENT ILLNESS: The patient is a pleasant 89-year-old female admitted through the ED with a rapid ventricular rate. It was up on the 130s and 140s. She was just seen in the ED the previous day, given a Cardizem bolus and sent home when she converted. Today in the ED, 3 attempts with Adenocard were unsuccessful. She did not stay in a regular rhythm and became tachycardic again. Her chest x-ray shows cardiomegaly and vascular congestion. She has a longstanding history of paroxysmal atrial fibrillation. She is admitted then for further treatment and evaluation. She has underlying hypertension. PAST MEDICAL HISTORY: Paroxysmal atrial fibrillation, unspecified cancer, hyperlipidemia, hypertension. PAST SURGICAL HISTORY: Includes appendectomy, cholecystectomy and hysterectomy. ALLERGIES: She has no recorded drug allergies. CURRENT MEDICINES: Include the following, which is gleaned from the residential records: She was on metolazone, amlodipine, Lipitor, cephalexin, metoprolol 12.5 mg daily, Remeron, MiraLax and potassium supplementation. She is not on a diuretic. SOCIAL HISTORY: She is a nonsmoker, nondrinker. REVIEW OF SYSTEMS: Hard to ascertain. Patient is very confused and not aware of person, place or time. She thinks she is living with her mother who has long been . She had complained of some generalized dyspnea with minimal exertion. The rest of the detailed review of system is unobtainable due to the patient's confusion. PHYSICAL EXAMINATION: VITAL SIGNS: When I saw her, her blood pressure was 152/118 mmHg, pulse ranges between 135 and 140 per minute, irregularly irregular. HEENT: Head is without trauma. Pupils are reactive. Sclerae nonicteric. Oropharynx is clear. NECK: Supple, no bruits identified. LUNGS: Shallow respirations with minimal crackles at the bases. CARDIOVASCULAR: Showed a tachycardic rhythm. No obvious gallops. Peripheral pulses are palpable and full. ABDOMEN: Soft, scaphoid, nontender, no organomegaly. Bowel sounds are hypoactive. EXTREMITIES: Show trace edema. NEUROLOGIC: Her speech was fluent. She had no focal deficits. She was very confused as to what is going on. SKIN: Otherwise warm and dry. PERTINENT LABORATORY STUDIES: Her creatinine is 1.8 mg/dL. I do not have a good baseline for her at this time. Hemoglobin is 13.0 g/dL with a white count of 6600. Her BNP was elevated at 9500. Troponin was measured at 0.039, the cut off is 0.56. Chest x-ray as noted. ASSESSMENT: 1. An 89-year-old female with atrial fibrillation with rapid ventricular rate. 2. Symptomatic dyspnea. 3. Component of congestive heart failure, vascular congestion. 4. Chronic kidney disease stage 3. 5. Essential hypertension. 6. Generalized debilitation. 7. Underlying dementia. PLAN: 1. Admit to the Intensive Care Unit. 2. I shall ascertain her code status. 3. Cardizem drip to slow ventricular rate. 4. Formal Cardiology consultation in the morning. 5. Continue home meds. 6. Diet as tolerated. YARA ERAZO MD DR: MILVIA/yong JOB#: [id number] / [id number] ALEX Ivy MD
[2020-04-04] MEDS ORDERED: ONDANSETRON PF 4 MG/2 ML VIAL. IVP PRN (17:15)
[2020-04-04] MEDS ORDERED: APIX5TAB3 PO (19:08)
[2020-04-04] MEDS ORDERED: CEPH-264 PO (19:08)
--- NOTE | 2020-04-04 20:54 | RAD ---
SHOULDER 2+V RIGHT History: Reason: KNOT with shooting pain up neck / Spl. Instructions: / History: Technique: 3 views right shoulder. Comparison: None. Findings: Advanced right glenohumeral degenerative changes with large inferior humeral head osteophyte. Calcified intra-articular loose body superiorly within the joint. Mild acromioclavicular DJD. Normal alignment. No fracture. Impression: 1. No acute osseous abnormality. 2. Advanced right glenohumeral DJD with calcified intra-articular loose body. Electronically signed by: Contreras Lopez DO (04/04/2020 8:51 PM) [facility]
--- NOTE | 2020-04-04 20:56 | RAD ---
HIP BILATERAL WITH PELVIS History: Reason: FALL, PAIN / Spl. Instructions: / History: Technique: AP view the pelvis and 2 additional views of bilateral hips. Comparison: None. Findings: Normal alignment of the hips. No fracture. Advanced left hip DJD. Mild right hip DJD. Advanced lower lumbar spondylosis. Postoperative changes overlying the pelvis. Impression: 1. No acute osseous abnormality. 2. Advanced left hip DJD. 3. Advanced lower lumbar spondylosis. Electronically signed by: Contreras Lopez DO (04/04/2020 8:53 PM) KATELYN
--- NOTE | 2020-04-04 21:04 | RAD ---
CT HEAD AND CERVICAL SPINE WO History: Pain. Reason: fall today / Spl. Instructions: / History: Comparison: None. Technique: Noncontrast CT imaging was performed of the head and cervical spine. Coronal and sagittal reconstructions were performed. Exposure: One or more of the following individualized dose reduction techniques were utilized for this examination: 1. Automated exposure control 2. Adjustment of the mA and/or kV according to patient size 3. Use of iterative reconstruction technique. Findings: Head CT: No intracranial hemorrhage. No mass effect. No hydrocephalus. Moderate brain parenchymal volume loss. Extensive foci of decreased attenuation within the hemispheric white matter, most often due to chronic microvascular ischemia. Chronic left medial parietal infarct. Imaged orbits are unremarkable. Imaged paranasal sinuses and mastoid air cells are clear. No acute calvarial fracture. Cervical spine CT: Normal vertebral body height. No fracture. C1-C2 degenerative changes with posterior pannus formation. Grade 1 anterolisthesis C4 on C5 and C6 on C7. Degenerative disc changes most prominent C5-C6. Multilevel facet arthropathy. Multilevel neuroforaminal narrowing. No high-grade canal stenosis. Bilateral pleural effusions. Septal thickening with groundglass opacities within the imaged lung apices. Thyroid nodules largest on the right measures 7 mm. Impression: Head CT: 1. No acute intracranial abnormality. 2. Chronic left medial parietal infarct. Cervical spine CT: 1. No acute fracture or subluxation of the cervical spine. 2. Biapical septal thickening and groundglass opacities, may represent pulmonary edema. 3. Bilateral pleural effusions. Electronically signed by: Contreras Lopez DO (04/04/2020 9:01 PM) [facility]
[2020-04-04] MEDS: CEPHALEXIN 250 MG CAPSULE PO SCH (21:18)
[2020-04-04] MEDS: MIRTAZAPINE 15 MG TABLET PO SCH (21:18)
[2020-04-05] VITALS (23 sets, daily range): BP systolic 105–149; BP diastolic 58–102
[2020-04-05 06:40] LABS: BASO # 0.1 x10^3/uL (0.0-0.2); BASO % 1 % (0-3); EOS # 0.1 x10^3/uL (0.0-0.7); EOS % 2 % (0-3); HEMATOCRIT 38.3 % (36.0-47.0); HEMOGLOBIN 12.4 g/dL (12.0-15.5); LYMPH # 1.7 x10^3/uL (1.0-4.8); LYMPH % 33 % (24-48); MEAN CORPUSCULAR HEMOGLOBIN 29 pg (25-35); MEAN CORPUSCULAR HGB CONC 33 g/dL (31-37); MEAN CORPUSCULAR VOLUME 89 fL (79-100); MONO # 0.4 x10^3/uL (0.0-1.1); MONO % 8 % (0-9); NEUT # 2.9 x10^3uL (1.8-7.7); NEUT % 56 % (31-73); PLATELET COUNT 189 x10^3/uL (140-400); WHITE BLOOD COUNT 5.1 x10^3/uL (4.0-11.0)
[2020-04-05 06:53] LABS: ALBUMIN 3.3 g/dL (3.4-5.0); ALBUMIN/GLOBULIN RATIO 1.1 (1.0-1.7); CALCIUM 8.9 mg/dL (8.5-10.1); CREATININE 1.7 mg/dL (0.6-1.0); GFR 28.4; MAGNESIUM 1.9 mg/dL (1.8-2.4); POTASSIUM 3.6 mmol/L (3.5-5.1); TOTAL BILIRUBIN 0.5 mg/dL (0.2-1.0); TOTAL PROTEIN 6.2 g/dL (6.4-8.2)
[2020-04-05] MEDS ORDERED: MAGNESIUM SULFATE 1GM 100 ML IV ONE (09:30)
--- NOTE | 2020-04-05 09:39 | PDOC2 ---
DOTTIE LOPEZ RELOCATION SERVICES SPECIALIST 04/05/20 0939: CARDIAC CONSULT DATE OF CONSULT DOS: DATE: 04/05/20 TIME: 09:24 REASON FOR CONSULT Reason for Consult AFIB with RVR REFERRING PHYSICIAN Referring Physician Dr. Patel SOURCE Source: Chart review, Patient HPI History of Present Illness This is an 89 yo female who presented secondary to palpitations. Was noted in AFIB with RVR. Present to the ED the day prior and was also noted in AFIB with RVR. Was given IV Cardizem, which converted her back to SR and she was discharge home. She was not sent home with rate control therapy. Palpitations returned, which was accompanied by dizziness, lightheadedness, and chest pressure so they returned to the ED. Patient converted back to SR with Cardizem gtt overnight. She does have a history of PAFIB. Follows with cardiology. Was recently placed back on Eliquis for stroke prevent because she was noted in AFIB during office visit. This was previously discontinued due to anemia. She is on metoprolol for rate control and compliance with meds is reported. PAST MEDICAL HISTORY Cardiovascular: AFIB, CHF, hyperipidemia Pulmonary: Pulmonary embolus (DVT) CENTRAL NERVOUS SYSTEM: CVA, Dementia GI: Other (colon CA) Heme/Onc: Anemia NOS PAST SURGICAL HISTORY Past Surgical History: Hysterectomy FAMILY HISTORY Family History: Cancer, Stroke SOCIAL HISTORY Smoke: No ALCOHOL: none Drugs: None Lives: with Family CURRENT MEDICATIONS Current Medications Current Medications Metoprolol Tartrate (Lopressor Vial) 5 mg 1X ONCE IV Last administered on 04/04/20at 13:39; Start 04/04/20 at 13:30; Stop 04/04/20 at 13:31; Status DC Metoprolol Tartrate (Lopressor Vial) 5 mg 1X ONCE IV Last administered on 04/04/20at 14:13; Start 04/04/20 at 14:00; Stop 04/04/20 at 14:01; Status DC Metoprolol Tartrate (Lopressor Vial) 5 mg 1X ONCE IV Last administered on 04/04/20at 14:30; Start 04/04/20 at 14:30; Stop 04/04/20 at 14:31; Status DC Lorazepam (Ativan Inj) 0.5 mg 1X ONCE IVP Last administered on 04/04/20at 15:08; Start 04/04/20 at 15:00; Stop 04/04/20 at 15:01; Status DC Furosemide (Lasix) 40 mg 1X ONCE IVP Last administered on 04/04/20at 16:33; Start 04/04/20 at 15:00; Stop 04/04/20 at 15:01; Status DC Adenosine (Adenocard) 6 mg STK-MED ONCE IV ; Start 04/04/20 at 15:33; Stop 04/04/20 at 15:34; Status DC Diltiazem HCl (Cardizem Iv Push) 10 mg 1X ONCE IVP Last administered on 04/04/20at 16:33; Start 04/04/20 at 16:15; Stop 04/04/20 at 16:16; Status DC Diltiazem HCl 125 mg/Sodium Chloride 125 ml @ 5 mls/hr CONT PRN IV SEE I/O RECORD Last administered on 04/04/20at 18:03; Start 04/04/20 at 17:00 Acetaminophen (Tylenol) 650 mg PRN Q6HRS PRN PO MILD PAIN / TEMP > 100.3'F; Start 04/04/20 at 17:15 Ondansetron HCl (Zofran) 4 mg PRN Q6HRS PRN IVP NAUSEA/VOMITING; Start 04/04/20 at 17:15 Atorvastatin Calcium (Lipitor) 40 mg DAILY PO ; Start 04/05/20 at 09:00 Cephalexin HCl (Keflex) 500 mg TID PO Last administered on 04/04/20at 21:18; Start 04/04/20 at 21:00 Mirtazapine (Remeron) 22.5 mg QHS PO Last administered on 04/04/20at 21:18; Start 04/04/20 at 21:00 Lorazepam (Ativan Inj) 0.5 mg PRN Q2HR PRN IVP ANXIETY / AGITATION Last administered on 04/05/20at 01:55; Start 04/04/20 at 22:45 Lactobacillus Rhamnosus (Culturelle) 1 cap BID PO ; Start 04/05/20 at 09:00 Potassium Chloride (Klor-Con) 20 meq BID PO ; Start 04/05/20 at 21:00; Status UNV Magnesium Sulfate 100 ml @ 100 mls/hr 1X ONCE IV ; Start 04/05/20 at 09:30; Stop 04/05/20 at 10:29; Status UNV Active Scripts Active Reported Eliquis (Apixaban) 5 Mg Tablet 5 Mg PO BID Keflex (Cephalexin) 500 Mg Capsule 1 Cap PO TID 5 Days Tylenol (Acetaminophen) 325 Mg Tablet 650 Mg PO Q4HRS PRN Urocit-K (Potassium Citrate) 10 Meq Tablet.er 10 Meq PO DAILY Miralax (Polyethylene Glycol 3350) 17 Gm Powd.pack 17 Gm PO DAILY PRN Remeron (Mirtazapine) 45 Mg Tab.rapdis 0.5 Tab PO HS Toprol Xl (Metoprolol Succinate) 25 Mg Tab.er.24h 25 Mg PO BID Bisacodyl 5 Mg Tablet.dr 5 Mg PO 3X/WEEK Lipitor (Atorvastatin Calcium) 40 Mg Tablet 40 Mg PO DAILY ALLERGIES Allergies: Coded Allergies: No Known Drug Allergies (Unverified , 01/29/20) ROS Review of Systems limited due to dementia. PHYSICAL EXAM General: Alert, Cooperative HEENT: Atraumatic Lungs: Clear to auscultation Heart: Regular rate, Normal S1, Normal S2 Abdomen: Soft, No tenderness Extremities: No edema, Normal pulses Skin: No breakdown Neuro: Normal speech, Sensation intact Psych/Mental Status: Mood NL, Other (confused ) MUSCULOSKELETAL: Osteoarthritic changes both hands VITALS Vital Signs Vital Signs Date Time Temp Pulse Resp B/P (MAP) Pulse Ox O2 Delivery O2 Flow Rate FiO2 04/05/20 06:33 98.2 72 25 109/67 (81) 95 Nasal Cannula 2.0 LABS LABS Laboratory Tests Test 04/04/20 13:10 04/05/20 06:27 White Blood Count 6.6 x10^3/uL (4.0-11.0) 5.1 x10^3/uL (4.0-11.0) Red Blood Count 4.57 x10^6/uL (3.50-5.40) 4.30 x10^6/uL (3.50-5.40) Hemoglobin 13.0 g/dL (12.0-15.5) 12.4 g/dL (12.0-15.5) Hematocrit 41.1 % (36.0-47.0) 38.3 % (36.0-47.0) Mean Corpuscular Volume 90 fL (79-100) 89 fL (79-100) Mean Corpuscular Hemoglobin 29 pg (25-35) 29 pg (25-35) Mean Corpuscular Hemoglobin Concent 32 g/dL (31-37) 33 g/dL (31-37) Red Cell Distribution Width 16.8 % (11.5-14.5) 17.0 % (11.5-14.5) Platelet Count 243 x10^3/uL (140-400) 189 x10^3/uL (140-400) Neutrophils (%) (Auto) 69 % (31-73) 56 % (31-73) Lymphocytes (%) (Auto) 21 % (24-48) 33 % (24-48) Monocytes (%) (Auto) 8 % (0-9) 8 % (0-9) Eosinophils (%) (Auto) 1 % (0-3) 2 % (0-3) Basophils (%) (Auto) 1 % (0-3) 1 % (0-3) Neutrophils # (Auto) 4.6 x10^3uL (1.8-7.7) 2.9 x10^3uL (1.8-7.7) Lymphocytes # (Auto) 1.4 x10^3/uL (1.0-4.8) 1.7 x10^3/uL (1.0-4.8) Monocytes # (Auto) 0.5 x10^3/uL (0.0-1.1) 0.4 x10^3/uL (0.0-1.1) Eosinophils # (Auto) 0.0 x10^3/uL (0.0-0.7) 0.1 x10^3/uL (0.0-0.7) Basophils # (Auto) 0.1 x10^3/uL (0.0-0.2) 0.1 x10^3/uL (0.0-0.2) Sodium Level 139 mmol/L (136-145) 139 mmol/L (136-145) Potassium Level 4.8 mmol/L (3.5-5.1) 3.6 mmol/L (3.5-5.1) Chloride Level 103 mmol/L (98-107) 104 mmol/L (98-107) Carbon Dioxide Level 23 mmol/L (21-32) 27 mmol/L (21-32) Anion Gap 13 (6-14) 8 (6-14) Blood Urea Nitrogen 15 mg/dL (7-20) 15 mg/dL (7-20) Creatinine 1.8 mg/dL (0.6-1.0) 1.7 mg/dL (0.6-1.0) Estimated GFR (Cockcroft-Gault) 26.6 28.4 BUN/Creatinine Ratio 8 (6-20) 9 (6-20) Glucose Level 116 mg/dL (70-99) 90 mg/dL (70-99) Calcium Level 9.3 mg/dL (8.5-10.1) 8.9 mg/dL (8.5-10.1) Magnesium Level 2.1 mg/dL (1.8-2.4) 1.9 mg/dL (1.8-2.4) Total Bilirubin 0.6 mg/dL (0.2-1.0) 0.5 mg/dL (0.2-1.0) Aspartate Amino Transf (AST/SGOT) 20 U/L (15-37) 19 U/L (15-37) Alanine Aminotransferase (ALT/SGPT) 20 U/L (14-59) 18 U/L (14-59) Alkaline Phosphatase 95 U/L (46-116) 85 U/L (46-116) Troponin I Quantitative 0.039 ng/mL (0-0.055) EM-Sxc-A-Type Natriuretic Peptide 9505 pg/mL (0-449) Total Protein 6.5 g/dL (6.4-8.2) 6.2 g/dL (6.4-8.2) Albumin 3.6 g/dL (3.4-5.0) 3.3 g/dL (3.4-5.0) Albumin/Globulin Ratio 1.2 (1.0-1.7) 1.1 (1.0-1.7) Lipase 93 U/L (73-393) EKG EKG Event Monitor 03/22/20 Indication: Atrial Fibrillation Analysis time: 47 The patient is in A. fib.Mean HR: 100 bpm. Maximum HR: 191 bpm. Minimum HR: 65 bpm Ventricular prematurities - total: 2020 ECHOCARDIOGRAM Echocardiogram 07/15/19 - 2-D + DOPPLER ECHOCARDIOGRAM Conclusion 1. Slightly dilated ascending aorta. No dissection seen. 2. Asymmetric septal hypertrophy may indicate the presence of hypertrophic cardiomyopathy or may be an age-related change ("sigmoid septum of the elderly"). No left ventricular outflow tract gradient at rest. 3. Hyperdynamic left ventricular function. Normal wall motion. Moderate diastolic dysfunction with elevated filling pressure. 4. Pulmonary hypertension. PA systolic pressure ~55 mm Hg. 5. No pericardial effusion. 6. No previous echocardiogram for comparison. STRESS TEST Stress Test 11/25/18 - Procedure: [facility] REGADENOS[facility] MPI STRESS TEST SUMMARY/OPINION: Probably normal study. 1. Tiny fixed apical lateral defect of minimal intensity with normal thickening and motion most suggestive of soft tissue attenuation (corrected when compared to gender match individuals). No reversible/ischemic defects. Stress score of 0 (less than 4 is normal). Normal lung to heart ratio. No transient ischemic dilatation. 2. Normal regional wall motion and thickening. Normal left ventricular ejection fraction, 76% (overestimated due to small left ventricle). 3. Nonischemic ECG response to regadenoson infusion. Nonspecific conduction delay at baseline. ASSESSMENT/PLAN Assessment/Plan 1. Palpitation, chest pressure in the setting of AFIB RVR. Stress last year with fixed defect, no evidence of reversible ischemia as noted above. 2. PAFIB with RVR; converted overnight with Cardizem gtt. Holter monitor earlier this month showed patient was predominantly in AFIB as noted above with periods of RVR. Follows with Dr. Ponce, with [facility]. 3. Hyperlipidemia; statin 4. Chronic diastolic CHF; appears compensated. Echo 07/30 with preserved LV systolic function 5. H/o CVA 6. Iron deficiency anemia; hgb stable. Previously required transfusion 7. CKD 8. H/o PE; 07/30. S/p 6 months of OAC Recommendations Convert Cardizem to oral as patient patient converted back to SR and rate remains controlled with CCB. Discontinue metoprolol Consider rhyhtm maintenance therapy with Amiodarone Eliquis for stroke prophylaxis. Consider referral for SKYLER closure as long-term OAC is likely not ideal for given fall risk, dementia, and anemia history. Will defer to primary complex director, Dr. Ponce. Plans for referral to EP services per recent office note TSH level Secondary prevention measures CYRIL BULL MD 04/05/20 1427: CARDIAC CONSULT ASSESSMENT/PLAN Assessment/Plan Patient seen and examined. Agree with POLICE SPECIALIST's assessment and plan. A. fib RVR, presently back in sinus rhythm. Change Cardizem to p.o. and start amiodarone for rhythm maintenance. Agree that patient is probably not a good candidate for long-term anticoagulation. Continue Eliquis for now and consider outpatient referral for left atrial appendage closure -will defer to primary complex director at [facility] Chronic diastolic heart failure clinically well compensated Recent 2D echo showed hyperdynamic left ventricle systolic function and stress test did not show any significant ischemia Patient currently has mental status changes, most probably secondary to sedatives given to her overnight. She is currently being planned for CT scan of the head to rule out any intracranial process. Thank you for your consultation DOTTIE LOPEZ APRN Apr 05, 2020 09:39 CYRIL BULL MD Apr 05, 2020 14:27
--- NOTE | 2020-04-05 09:44 | PN ---
DATE: 04/05/2020 ATTENDING PHYSICIAN: Dr. Erazo. CHIEF COMPLAINT: Rapid heart rate. SUBJECTIVE: The patient remains confused. She is still weak. She requires 2:1 assistance for transfer and getting up out of bed. OBJECTIVE FINDINGS: VITAL SIGNS: Her blood pressure today is 109/67 mmHg, pulse 72 and regular, temperature 98.2 degrees Fahrenheit, oxygen saturation 95% on 2 liters of nasal cannula. She has been on 5 mg/hour Cardizem drip. HEENT: Head is without trauma. Pupils are reactive. Sclerae is nonicteric. Oropharynx is clear. NECK: Supple. LUNGS: I listened to her lungs, there are minimal crackles at the bases. She has shallow respirations. There is no wheezing. CARDIOVASCULAR: Showed regular heart tones today. No obvious gallops. Peripheral pulses are palpable, but weak. ABDOMEN: Soft, scaphoid. No guarding or rebound tenderness. EXTREMITIES: Showed no edema. NEUROLOGIC: Her speech was fairly fluent. There are no focal deficits. She was very confused. SKIN: Warm and dry. PERTINENT LABORATORY STUDIES: Her creatinine today is slightly better 1.7 mg/dL, potassium 3.6 mEq, sodium 139 mEq. Transaminases were normal. BNP on admission was 9505. ASSESSMENT: 1. An 89-year-old female with atrial fibrillation, rapid ventricular rate, now controlled with Cardizem. 2. Symptomatic dyspnea. 3. Component of congestive heart failure and vascular congestion. 4. Chronic kidney disease, stage 3. 5. Essential hypertension. 6. Probable hypertensive heart disease. 7. Generalized debilitation. 8. Underlying dementia. PLAN: 1. Keep in the ICU. 2. We will convert her Cardizem from intravenous drip to oral. 3. Formal Cardiology consultation this morning. 4. Continue home meds. 5. Diet as tolerated. 6. Recommendations per physical therapy. YARA ERAZO MD DR: MILVIA/yong JOB#: [id number] / [id number]
[2020-04-05] MEDS ORDERED: AMIODARONE 450 MG in IV DEXTROSE 5% 250 ML IV PRN (12:00)
[2020-04-05] MEDS ORDERED: AMIODARONE 150 MG in IV DEXTROSE 5% 100 ML IVP ONE (12:00)
[2020-04-05] MEDS: ATORVASTATIN CALCIUM 20 MG TABLET PO SCH (12:35)
[2020-04-05] MEDS: CEPHALEXIN 250 MG CAPSULE PO SCH ×3 (12:35→20:29)
[2020-04-05] MEDS: LACTOBACILLUS RHAMNOSUS GG 1 CAPSULE. PO SCH ×2 (12:36→20:29)
--- NOTE | 2020-04-05 12:40 | RAD ---
EXAM: Head CT without contrast. HISTORY: Fall. TECHNIQUE: Computed tomographic images of the head were obtained without contrast. *One or more of the following individualized dose reduction techniques were utilized for this examination: 1. Automated exposure control. 2. Adjustment of the mA and/or kV according to patient size. 3. Use of iterative reconstruction technique. COMPARISON: 04/04/2020. FINDINGS: There is no acute or subacute extra-axial or intraparenchymal hemorrhage. There is no mass effect or midline shift. There is no hydrocephalus. There is a chronic medial left frontal lobe infarct. There is also ex vacuo dilatation of the frontal horn of the left lateral ventricle likely due to a chronic frontal lobe infarct. There is cerebral atrophy with compensatory enlargement of the ventricles. The visualized portions of the orbits, paranasal sinuses and mastoid air cells are unremarkable. No suspicious calvarial lesion is seen. IMPRESSION: 1. No acute intracranial finding. Note is made that MRI is more sensitive for acute infarction. 2. Bilateral cerebral white matter changes, likely due to chronic small vessel disease. 3. Chronic infarct within the left frontal lobe and possibly the left frontal lobe. 4. Cerebral volume loss. Electronically signed by: Blanca Sandhu MD (04/05/2020 12:38 PM) [facility]
[2020-04-05] MEDS ORDERED: AMIODARONE 900 MG in IV DEXTROSE 5% 500 ML IV PRN (13:00)
[2020-04-05] MEDS: POTASSIUM CHLORIDE 20 MEQ TABLET.ER. PO SCH ×2 (13:32→20:30)
[2020-04-05 14:55] LABS: THYROID STIM HORMONE (TSH) 2.226 uIU/mL (0.358-3.740)
[2020-04-05] MEDS: ACETAMINOPHEN 325 MG TABLET PO PRN (20:29)
[2020-04-05] MEDS: MIRTAZAPINE 15 MG TABLET PO SCH (20:29)
[2020-04-05] MEDS: APIXABAN 5 MG TABLET. PO SCH (20:29)
[2020-04-06] VITALS (21 sets, daily range): BP systolic 105–139; BP diastolic 61–94
[2020-04-06 06:38] LABS: BASO # 0.1 x10^3/uL (0.0-0.2); BASO % 1 % (0-3); EOS # 0.2 x10^3/uL (0.0-0.7); EOS % 3 % (0-3); HEMATOCRIT 39.7 % (36.0-47.0); HEMOGLOBIN 12.4 g/dL (12.0-15.5); LYMPH # 1.7 x10^3/uL (1.0-4.8); LYMPH % 27 % (24-48); MEAN CORPUSCULAR HEMOGLOBIN 29 pg (25-35); MEAN CORPUSCULAR HGB CONC 31 g/dL (31-37); MEAN CORPUSCULAR VOLUME 92 fL (79-100); MONO # 0.6 x10^3/uL (0.0-1.1); MONO % 9 % (0-9); NEUT # 3.8 x10^3uL (1.8-7.7); NEUT % 60 % (31-73); PLATELET COUNT 197 x10^3/uL (140-400); RED BLOOD COUNT 4.32 x10^6/uL (3.50-5.40); RED CELL DISTRIBUTION WIDTH 16.8 % (11.5-14.5); WHITE BLOOD COUNT 6.4 x10^3/uL (4.0-11.0)
[2020-04-06 06:53] LABS: ALBUMIN 2.9 g/dL (3.4-5.0); CALCIUM 8.5 mg/dL (8.5-10.1); CREATININE 1.8 mg/dL (0.6-1.0); GFR 26.6; MAGNESIUM 2.3 mg/dL (1.8-2.4); TOTAL BILIRUBIN 0.5 mg/dL (0.2-1.0); TOTAL PROTEIN 5.9 g/dL (6.4-8.2)
--- NOTE | 2020-04-06 09:26 | PDOC ---
CARDIO Progress Notes Date & Time Date of Service DATE: 04/06/20 TIME: 09:19 Time of Evaluation 09:19 Subjective Notes Sleepy. No chest pain, palpitations, dizziness Vitals Vitals Vital Signs Date Time Temp Pulse Resp B/P (MAP) Pulse Ox O2 Delivery O2 Flow Rate FiO2 04/06/20 06:00 85 19 121/69 (86) 93 Room Air 04/06/20 04:00 98.4 04/05/20 11:00 2.0 Weight Weight [ ] Input and Output I.O. Intake and Output 04/06/20 07:00 Intake Total 1028 ml Output Total 550 ml Balance 478 ml Intake Oral 750 ml IV Total 278 ml Output Urine Total 550 ml Laboratory Labs Laboratory Tests Test 04/04/20 13:10 04/05/20 06:20 04/05/20 06:27 04/06/20 06:24 White Blood Count 6.6 x10^3/uL (4.0-11.0) 5.1 x10^3/uL (4.0-11.0) 6.4 x10^3/uL (4.0-11.0) Red Blood Count 4.57 x10^6/uL (3.50-5.40) 4.30 x10^6/uL (3.50-5.40) 4.32 x10^6/uL (3.50-5.40) Hemoglobin 13.0 g/dL (12.0-15.5) 12.4 g/dL (12.0-15.5) 12.4 g/dL (12.0-15.5) Hematocrit 41.1 % (36.0-47.0) 38.3 % (36.0-47.0) 39.7 % (36.0-47.0) Mean Corpuscular Volume 90 fL (79-100) 89 fL (79-100) 92 fL (79-100) Mean Corpuscular Hemoglobin 29 pg (25-35) 29 pg (25-35) 29 pg (25-35) Mean Corpuscular Hemoglobin Concent 32 g/dL (31-37) 33 g/dL (31-37) 31 g/dL (31-37) Red Cell Distribution Width 16.8 % (11.5-14.5) 17.0 % (11.5-14.5) 16.8 % (11.5-14.5) Platelet Count 243 x10^3/uL (140-400) 189 x10^3/uL (140-400) 197 x10^3/uL (140-400) Neutrophils (%) (Auto) 69 % (31-73) 56 % (31-73) 60 % (31-73) Lymphocytes (%) (Auto) 21 % (24-48) 33 % (24-48) 27 % (24-48) Monocytes (%) (Auto) 8 % (0-9) 8 % (0-9) 9 % (0-9) Eosinophils (%) (Auto) 1 % (0-3) 2 % (0-3) 3 % (0-3) Basophils (%) (Auto) 1 % (0-3) 1 % (0-3) 1 % (0-3) Neutrophils # (Auto) 4.6 x10^3uL (1.8-7.7) 2.9 x10^3uL (1.8-7.7) 3.8 x10^3uL (1.8-7.7) Lymphocytes # (Auto) 1.4 x10^3/uL (1.0-4.8) 1.7 x10^3/uL (1.0-4.8) 1.7 x10^3/uL (1.0-4.8) Monocytes # (Auto) 0.5 x10^3/uL (0.0-1.1) 0.4 x10^3/uL (0.0-1.1) 0.6 x10^3/uL (0.0-1.1) Eosinophils # (Auto) 0.0 x10^3/uL (0.0-0.7) 0.1 x10^3/uL (0.0-0.7) 0.2 x10^3/uL (0.0-0.7) Basophils # (Auto) 0.1 x10^3/uL (0.0-0.2) 0.1 x10^3/uL (0.0-0.2) 0.1 x10^3/uL (0.0-0.2) Sodium Level 139 mmol/L (136-145) 139 mmol/L (136-145) 135 mmol/L (136-145) Potassium Level 4.8 mmol/L (3.5-5.1) 3.6 mmol/L (3.5-5.1) 4.0 mmol/L (3.5-5.1) Chloride Level 103 mmol/L (98-107) 104 mmol/L (98-107) 104 mmol/L (98-107) Carbon Dioxide Level 23 mmol/L (21-32) 27 mmol/L (21-32) 24 mmol/L (21-32) Anion Gap 13 (6-14) 8 (6-14) 7 (6-14) Blood Urea Nitrogen 15 mg/dL (7-20) 15 mg/dL (7-20) 16 mg/dL (7-20) Creatinine 1.8 mg/dL (0.6-1.0) 1.7 mg/dL (0.6-1.0) 1.8 mg/dL (0.6-1.0) Estimated GFR (Cockcroft-Gault) 26.6 28.4 26.6 BUN/Creatinine Ratio 8 (6-20) 9 (6-20) 9 (6-20) Glucose Level 116 mg/dL (70-99) 90 mg/dL (70-99) 110 mg/dL (70-99) Calcium Level 9.3 mg/dL (8.5-10.1) 8.9 mg/dL (8.5-10.1) 8.5 mg/dL (8.5-10.1) Magnesium Level 2.1 mg/dL (1.8-2.4) 1.9 mg/dL (1.8-2.4) 2.3 mg/dL (1.8-2.4) Total Bilirubin 0.6 mg/dL (0.2-1.0) 0.5 mg/dL (0.2-1.0) 0.5 mg/dL (0.2-1.0) Aspartate Amino Transf (AST/SGOT) 20 U/L (15-37) 19 U/L (15-37) 19 U/L (15-37) Alanine Aminotransferase (ALT/SGPT) 20 U/L (14-59) 18 U/L (14-59) 16 U/L (14-59) Alkaline Phosphatase 95 U/L (46-116) 85 U/L (46-116) 88 U/L (46-116) Troponin I Quantitative 0.039 ng/mL (0-0.055) IW-Qma-E-Type Natriuretic Peptide 9505 pg/mL (0-449) Total Protein 6.5 g/dL (6.4-8.2) 6.2 g/dL (6.4-8.2) 5.9 g/dL (6.4-8.2) Albumin 3.6 g/dL (3.4-5.0) 3.3 g/dL (3.4-5.0) 2.9 g/dL (3.4-5.0) Albumin/Globulin Ratio 1.2 (1.0-1.7) 1.1 (1.0-1.7) 1.0 (1.0-1.7) Lipase 93 U/L (73-393) Triglycerides Level 93 mg/dL (0-150) Cholesterol Level 129 mg/dL (0-200) LDL Cholesterol, Calculated 71 mg/dL (0-100) VLDL Cholesterol, Calculated 18 mg/dL (0-40) Non-HDL Cholesterol Calculated 89 mg/dL (0-129) HDL Cholesterol 40 mg/dL (40-60) Cholesterol/HDL Ratio 3.0 Thyroid Stimulating Hormone (TSH) 2.226 uIU/mL (0.358-3.740) Physical Exams HEENT: Neck Supple W Full Motion Chest: Symmetric Lungs: Clear to Auscultation Heart: irregularly irregular (presently AFIB with controlled rate) Abdomen: Soft N/T Extremities: No Edema Neurology: alert, follow commands, confused Assessment Assessment 1. Palpitation, chest pressure in the setting of AFIB RVR. Stress last year with fixed defect, no evidence of reversible ischemia as noted above. 2. PAFIB with RVR; converted back to SR, but currently AFIB with controlled rate. Follows with Dr. Ponce, with [facility]. 3. Hyperlipidemia; statin 4. Chronic diastolic CHF; appears compensated. Echo 07/30 with hyperdynamic LV systolic function 5. H/o CVA 6. Iron deficiency anemia; hgb stable. Previously required transfusion 7. CKD 8. H/o PE; 07/30. S/p 6 months of OAC Recommendations Contine Cardizem for rate control Amiodarone for rhythm maintenance. Will start 200mg daily orally following completion of gtt Eliquis for stroke prophylaxis. Consider referral for SKYLER closure as long-term OAC is likely not ideal for given fall risk, dementia, and anemia history. Will defer to primary international logistics analyst, Dr. Ponce. Plans for referral to EP services per recent office note Secondary prevention measures Supportive care Follow up with Primary international logistics analyst with [facility] upon discharge. DOTTIE LOPEZ APRN Apr 06, 2020 09:26
[2020-04-06] MEDS: POTASSIUM CHLORIDE 20 MEQ TABLET.ER. PO SCH ×2 (11:46→20:53)
[2020-04-06] MEDS: APIXABAN 5 MG TABLET. PO SCH ×2 (11:47→20:53)
[2020-04-06] MEDS: ATORVASTATIN CALCIUM 20 MG TABLET PO SCH (11:47)
[2020-04-06] MEDS: LACTOBACILLUS RHAMNOSUS GG 1 CAPSULE. PO SCH ×2 (11:47→20:53)
[2020-04-06] MEDS: CEPHALEXIN 250 MG CAPSULE PO SCH ×3 (11:47→20:53)
[2020-04-06] MEDS: AMIODARONE HCL 200 MG TABLET PO SCH (11:48)
[2020-04-06] MEDS: MIRTAZAPINE 15 MG TABLET PO SCH (20:53)
--- NOTE | 2020-04-06 21:21 | PN ---
DATE: 04/06/2020 SUBJECTIVE: The patient is resting, slightly propped up in bed, in no apparent respiratory distress. She is sleepy, but arousable. On questioning her, she denied any complaints. Nursing staff stated that she has been getting IV Ativan and this made her very sleepy. She was admitted with atrial fibrillation and rapid ventricular response and was on amiodarone drip. PHYSICAL EXAMINATION: GENERAL: When I saw her this afternoon, she was somewhat pale. No jaundice, cyanosis, or thyromegaly. No jugular venous distension. No limb edema. VITAL SIGNS: Her heart rate was 85, blood pressure was 121/69, temperature was 98.2, respiratory rate 21 and oxygen saturation was 94%. HEAD, EYES, EARS, NOSE AND THROAT: Normocephalic, atraumatic. NECK: Supple. HEART: Normal first and second heart sounds. No gallop, rub or murmur. CHEST: Clear to auscultation. No crepitation or rhonchi. ABDOMEN: Distended, soft, nontender. NEUROLOGIC: She is sleepy, but arousable. All cranial nerves intact. She moves extremities without difficulty. Her intake over the last 24 hours was 300, output was 1625. LABORATORY DATA: Showed a white cell count 6400, hemoglobin 12, hematocrit 39, MCV 92, and platelet count of 197,000. Her serum sodium was 135, potassium 4, chloride 104, bicarbonate 24, anion gap of 7, BUN 16, creatinine 1.8, estimated GFR was 27 mL per minute. Her glucose was 110, calcium was 8.5, magnesium was 2.3. Total bilirubin, AST, ALT, alkaline phosphatase were normal. Total protein was 5.9, albumin was 2.9. Serum triglycerides were 93, total cholesterol was 129, LDL was 71, VLDL was 18, and HDL was 40, ratio was 33. Her TSH was 2.226. ASSESSMENT: 1. Palpitation, chest pressure in the setting of atrial fibrillation with rapid ventricular response. Stress test last year showed fixed defect, no evidence of reversible ischemia. 2. Paroxysmal atrial fibrillation with rapid ventricular rate, converted back to sinus rhythm, but currently atrial fibrillation with controlled rate. She is known to have hyperlipidemia, chronic diastolic congestive heart failure, seems to be well compensated. 3. History of cerebrovascular accident, iron deficiency anemia and hemodynamically stable. She did require transfusion before. She has chronic kidney disease and history of pulmonary embolism, status post 6 months of oral anticoagulation. PLAN: To discontinue IV lorazepam. Continue with the Bates catheter. Continue with oral amiodarone. Continue with apixaban for anticoagulation. Continue with all her medications. We will consult Physical and Occupational Therapy tomorrow morning and hopefully discharge her home. ALEX TERAN MD DR: ASHLYN/yong JOB#: [id number] / [id number]
[2020-04-06] MEDS ORDERED: DIGOXIN IV 500 MCG/2 ML AMPUL. IV ONE (23:00)
[2020-04-07] VITALS (16 sets, daily range): BP systolic 114–146; BP diastolic 57–87
[2020-04-07 06:33] LABS: BASO % 1 % (0-3); EOS # 0.1 x10^3/uL (0.0-0.7); EOS % 2 % (0-3); HEMATOCRIT 38.3 % (36.0-47.0); HEMOGLOBIN 12.4 g/dL (12.0-15.5); LYMPH # 1.2 x10^3/uL (1.0-4.8); LYMPH % 20 % (24-48); MEAN CORPUSCULAR HEMOGLOBIN 29 pg (25-35); MEAN CORPUSCULAR HGB CONC 33 g/dL (31-37); MEAN CORPUSCULAR VOLUME 89 fL (79-100); MONO # 0.6 x10^3/uL (0.0-1.1); MONO % 10 % (0-9); NEUT # 4.3 x10^3uL (1.8-7.7); NEUT % 68 % (31-73); PLATELET COUNT 194 x10^3/uL (140-400); RED BLOOD COUNT 4.29 x10^6/uL (3.50-5.40); RED CELL DISTRIBUTION WIDTH 16.8 % (11.5-14.5); WHITE BLOOD COUNT 6.3 x10^3/uL (4.0-11.0)
[2020-04-07 06:45] LABS: ALBUMIN 2.7 g/dL (3.4-5.0); ALBUMIN/GLOBULIN RATIO 0.9 (1.0-1.7); CALCIUM 8.6 mg/dL (8.5-10.1); CREATININE 1.5 mg/dL (0.6-1.0); GFR 32.8; POTASSIUM 4.2 mmol/L (3.5-5.1); TOTAL BILIRUBIN 0.5 mg/dL (0.2-1.0); TOTAL PROTEIN 5.8 g/dL (6.4-8.2)
[2020-04-07] MEDS: CEPHALEXIN 250 MG CAPSULE PO SCH ×3 (08:42→20:51)
[2020-04-07] MEDS: POTASSIUM CHLORIDE 20 MEQ TABLET.ER. PO SCH ×2 (08:43→20:52)
[2020-04-07] MEDS: LACTOBACILLUS RHAMNOSUS GG 1 CAPSULE. PO SCH ×2 (08:43→20:51)
[2020-04-07] MEDS: ATORVASTATIN CALCIUM 20 MG TABLET PO SCH (08:43)
[2020-04-07] MEDS: APIXABAN 5 MG TABLET. PO SCH ×2 (08:43→20:52)
[2020-04-07] MEDS: AMIODARONE HCL 200 MG TABLET PO SCH (12:09)
--- NOTE | 2020-04-07 17:48 | PN ---
DATE: 04/07/2020 SUBJECTIVE: The patient is resting, sleeping comfortably, in no apparent distress. According to nursing staff, her heart rate continued to be suboptimally controlled, especially with exertion. Her heart rate was up to 140 and the Cardiology nurse practitioner has increased her diltiazem to 240 mg. Her heart rate, however, is well controlled at rest. She also continued to be extremely weak and debilitated. PHYSICAL EXAMINATION: GENERAL: When I saw her this afternoon, she was pale, no jaundice, cyanosis or thyromegaly. No jugular venous distention. No limb edema. VITAL SIGNS: Her heart rate was 115, blood pressure was 129/74, temperature was 98.7, respiratory rate was 18 and oxygen saturation was 93% on room air. HEENT: Showed normocephalic, atraumatic. NECK: Supple. CARDIAC: Normal first and second heart sounds. No gallop, rub or murmur. CHEST: Clear to auscultation. No crepitation or rhonchi. ABDOMEN: Distended, soft, nontender. NEUROLOGIC: She is sleepy, but arousable. All cranial nerves intact. She moves extremities without difficulty. Her intake over the last 24 hours was 1000, output was 550. LABORATORY DATA: Showed a white cell count 6300, hemoglobin 12.4, hematocrit 38, MCV 89 and platelet count of 194,000. Her chemistry showed a serum sodium 139, potassium 4.3, chloride 107, bicarbonate 24, anion gap of 7, BUN 13, creatinine 1.5, estimated GFR was 33 mL per minute. Her glucose was 98, calcium was 8.6. Magnesium was 2. Total bilirubin, AST, ALT, alkaline phosphatase were normal. Total protein was 5.8, albumin was 2.7. ASSESSMENT: 1. Palpitations, chest pressure in the setting of atrial fibrillation with rapid ventricular response. Stress test last year showed fixed defect, no evidence of reversible ischemia. 2. Paroxysmal atrial fibrillation with rapid ventricular response. The patient converted back to sinus rhythm, but currently in atrial fibrillation with suboptimally controlled rate. 3. She is known to have hyperlipidemia. 4. Chronic diastolic congestive heart failure. 5. History of cerebrovascular accident. 6. Iron deficiency anemia. 7. Chronic kidney disease. 8. History of pulmonary embolism, treated for 6 months with oral anticoagulation. PLAN: To discontinue Bates catheter. We will continue to observe her for another 24 hours and hopefully discharge her home tomorrow with home health. ALEX TERAN MD DR: ASHLYN/yong JOB#: [id number] / [id number]
[2020-04-07] MEDS: ACETAMINOPHEN 325 MG TABLET PO PRN (18:26)
[2020-04-07] MEDS: MIRTAZAPINE 15 MG TABLET PO SCH (20:51)
[2020-04-08] MEDS: ACETAMINOPHEN 325 MG TABLET PO PRN (03:22)
[2020-04-08 05:55] VITALS: BP 119/81
[2020-04-08] MEDS: LACTOBACILLUS RHAMNOSUS GG 1 CAPSULE. PO SCH (08:23)
[2020-04-08] MEDS: CEPHALEXIN 250 MG CAPSULE PO SCH ×2 (08:27→14:00)
[2020-04-08] MEDS: ATORVASTATIN CALCIUM 20 MG TABLET PO SCH (08:27)
[2020-04-08] MEDS: APIXABAN 5 MG TABLET. PO SCH (08:27)
[2020-04-08] MEDS: POTASSIUM CHLORIDE 20 MEQ TABLET.ER. PO SCH (08:28)
[2020-04-08 11:00] VITALS: BP 148/80
[2020-04-08] MEDS: AMIODARONE HCL 200 MG TABLET PO SCH (12:40)
[2020-04-08] MEDS ORDERED: AMIO200T4 PO (13:09)
[2020-04-08] MEDS ORDERED: DILT240T8 PO (13:09)
--- NOTE | 2020-04-08 13:24 | DISCH ---
HOME HEALTH DISCHARGE/MEDS DISCHARGE INFORMATION: Discharge Date: Apr 08, 2020 Final Diagnosis: Problems Medical Problems: (1) Atrial fibrillation with RVR Status: Acute (2) CHF (congestive heart failure) Status: Acute (3) DNR (do not resuscitate) Status: Acute Condition on Discharge: Stable CODE STATUS: Code Status: DNR/DNI HOME HEALTH: Face to Face: I certify this patient is under my care and that I, or a nurse practitioner or physician's assistant bookkeeper working with me, had a face to face encounter that meets the physician face to face encounter requirements with this patient on 04/08/20 Medical Condition(s): CHF Fdc For: Admin/Educate Injections Physical Therapy For: Evalulation/Treatment Occupational Therapy For: Evaluation/Treatment POST DISCHARGE ORDERS: Activity Instructions for Disc: Activity as tolerated DIET AFTER DISCHARGE: Cardiac CERTIFICATION STATEMENT: Certification Statement: Based on the above finding, I certify that this patient is confined to the home and needs intermittent detention care, physical th erapy and/or speech therapy, or continues to need occupational therapy.~ This patient is under my care, and I have initiated the establishment of the plan of care.~ This patient will be followed by myself or a community physician who will periodically review the plan of care. DISCHARGE MEDICATIONS: Home Meds Reported Medications Apixaban (ELIQUIS) 5 Mg Tablet, 5 MG PO BID for blood thinner, TAB 04/04/20 Cephalexin (KEFLEX) 500 Mg Capsule, 1 CAP PO TID for UTI for 5 Days, #15 CAP 0 Refills 04/04/20 Acetaminophen (TYLENOL) 325 Mg Tablet, 650 MG PO Q4HRS PRN for PAIN, TAB 01/29/20 Potassium Citrate (UROCIT-K) 10 Meq Tablet.er, 10 MEQ PO DAILY for electrolyte replacement, TAB.SR 01/29/20 Polyethylene Glycol 3350 (MIRALAX) 17 Gm Powd.pack, 17 GM PO DAILY PRN for CONSTIPATION, PKT 01/29/20 Mirtazapine (REMERON) 45 Mg Tab.rapdis, 0.5 TAB PO HS for depression, TAB 01/29/20 Metoprolol Succinate (TOPROL XL) 25 Mg Tab.er.24h, 25 MG PO BID for FOR HYPERTENSION, #30 TAB 0 Refills 01/29/20 Bisacodyl (BISACODYL) 5 Mg Tablet.dr, 5 MG PO 3X/WEEK for constipation, TAB 0 Refills 01/29/20 Atorvastatin Calcium (LIPITOR) 40 Mg Tablet, 40 MG PO DAILY for FOR CHOLESTEROL, #30 TAB 0 Refills 01/29/20 Discontinued Reported Medications Amlodipine Besylate (NORVASC) 5 Mg Tablet, 5 MG PO DAILY for blood pressure, TAB 01/29/20 ALEX TERAN MD Apr 08, 2020 13:24
--- NOTE | 2020-04-08 14:01 | DS ---
DATE OF DISCHARGE: HOSPITAL COURSE: The patient is an 89-year-old female patient who was admitted with a rapid ventricular rate. She was seen in the Emergency Room, the previous day given Cardizem bolus and sent home; however, when she converted apparently 3 attempts with Adenocard were unsuccessful, did not stay in a regular rhythm and became tachycardic again. Her chest x-ray did show cardiomegaly and vascular congestion. She has a longstanding history of paroxysmal atrial fibrillation. She is admitted for further treatment and evaluation. She was treated initially with IV Lasix. She was also treated with amiodarone and Cardizem, initially with amiodarone drip and eventually switched to oral amiodarone and Cardizem initially at 120 and increased to 240 and her heart rate was much better controlled. She has been up and about walking with a walker and participates in physical therapy and as she remained hemodynamically stable and afebrile, a decision was made to discharge her home with home health. PHYSICAL EXAMINATION: GENERAL: When I examined her this afternoon, she was resting slightly propped up in bed, in no apparent respiratory distress. No pallor, jaundice, cyanosis or thyromegaly. No jugular venous distention. No limb edema. VITAL SIGNS: Her heart rate was 84, blood pressure was 119/81, temperature was 97.8, respiratory rate was 13 and oxygen saturation was 95% on room air. HEAD, EYES, EARS, NOSE AND THROAT: Showed normocephalic, atraumatic. NECK: Supple. CARDIAC: Normal first and second heart sounds. No gallop or murmur. CHEST: Clear to auscultation. No crepitation or rhonchi. ABDOMEN: Slightly distended, soft, nontender. NEUROLOGIC: She is awake, alert, responding appropriately. She ambulates with a walker, though she continued to have some unsteady gait. Her intake over the last 24 hours was 1550, output was 875. LABORATORY DATA: Her lab work showed a serum sodium 138, potassium 4.2, chloride 107, bicarbonate 24, anion gap of 7, BUN 13, creatinine 1.5, estimated GFR was 33 mL per minute, her glucose was 98, calcium was 8.6, magnesium 2. Total bilirubin, AST, ALT, alkaline phosphatase were normal. Total protein 5.8, albumin 2.7. DISCHARGE MEDICATIONS: She was discharged home to continue on following medications: Amiodarone 200 mg once a day, diltiazem CD 240 mg once a day, apixaban 5 mg twice a day, Tylenol 650 every 4 hours as needed, atorvastatin calcium 40 mg at bedtime, bisacodyl 5 mg 3 times a week, mirtazapine 22.5 mg at bedtime, potassium citrate 10 mEq once a day. We discontinued her metoprolol and she has received cephalexin for almost 6 of 7 days and therefore, I discontinued that. FINAL DISCHARGE DIAGNOSES: 1. Paroxysmal atrial fibrillation with rapid ventricular response. 2. Hyperlipidemia. 3. Chronic diastolic congestive heart failure. 4. History of cerebrovascular accident. 5. Iron deficiency anemia. 6. Chronic kidney disease. 7. History of pulmonary embolism, treated for 6 months of oral anticoagulation. 8. Urinary tract infection, treated with cephalexin for 5-6 day. ALEX TERAN MD DR: ASHLYN/yong JOB#: [id number] / [id number]
[2020-04-08 16:36] VITALS: BP 124/71
== END 2020-04-08 17:00 | disposition home health service (06) | DRG 309 ==
LOC: ER 12:37 → ICU 16:15
PROVIDERS: ADMIT Hospitalist; ATTEND Internal Medicine
DX: I48.0 Paroxysmal atrial fibrillation (principal); I50.32 Chronic diastolic (congestive) heart failure; I13.0 Hypertensive heart and chronic kidney disease with heart failure and stage 1 through stage 4 chronic kidney disease, or unspecified chronic kidney disease; N39.0 Urinary tract infection, site not specified; N18.3 Chronic kidney disease, stage 3 (moderate); E78.00 Pure hypercholesterolemia, unspecified; G89.29 Other chronic pain; Z66 Do not resuscitate; E78.5 Hyperlipidemia, unspecified; D50.9 Iron deficiency anemia, unspecified; I27.20 Pulmonary hypertension, unspecified; I45.9 Conduction disorder, unspecified; I77.819 Aortic ectasia, unspecified site; F03.90 Unspecified dementia, unspecified severity, without behavioral disturbance, psychotic disturbance, mood disturbance, and anxiety; R53.81 Other malaise; Z79.01 Long term (current) use of anticoagulants; Z86.711 Personal history of pulmonary embolism; Z85.038 Personal history of other malignant neoplasm of large intestine; Z86.73 Personal history of transient ischemic attack (TIA), and cerebral infarction without residual deficits; Z90.710 Acquired absence of both cervix and uterus; Z90.49 Acquired absence of other specified parts of digestive tract; Z82.3 Family history of stroke; Z80.9 Family history of malignant neoplasm, unspecified
CPT/HCPCS: 36415; 70450; 71045; 72125; 73030; 73521; 80053; 80061; 83690; 83735; 83880; 84443; 84484; 85025; 93005; 96374; 96375; 96376; J0282; J1160; J1940; J2060; J3475; J3490; 97116; 97530; 97535; 99285-25

== ENCOUNTER 2020-05-04 09:09 | Emergency (ER) | payer MEDICARE ==
[~2020-05-04] VITALS: Ht 157.5 cm; Wt 66.7 kg
[~2020-05-04 09:09] MED LIST changes: +AMIO200T4 PO; +DILT240T8 PO
--- NOTE | 2020-05-04 09:56 | PHYS DOC ---
Past History Past Medical History: High Cholesterol, Hypertension, Stroke Past Surgical History: No Surgical History, Other Additional Past Surgical Histo: cancer surgery Smoking: Non-smoker Alcohol Use: None Drug Use: None General Adult EDM: Chief Complaint: MECHANICAL FALL HPI: HPI: Patient is a 89-year-old female with a history of two strokes currently on Eliquis who presents the emergency room with right wrist pain s/p a mechanical fall that occurred around 8AM today. Patient states that she was bending forward to feed her cat when she lost her balance and fell on an outstretched hand. She rates her right wrist pain at 7/10 and denies any numbness or tinglin g in her arm. She denies any loss of consciousness or head trauma during or after her fall. Denies any dizziness, chest pain, shortness of breath, or headaches at this time. She denies having any neck/back pain, elbow pain, or shoulder pain at this time. Review of Systems: Review of Systems: Constitutional: Denies fever, dizziness, or chills Eyes: Denies redness or eye pain HENT: Denies nasal congestion or sore throat Respiratory: Denies cough or shortness of breath Cardiovascular: Denies chest pain or palpitations GI: Denies abdominal pain, nausea, or vomiting : Denies dysuria or hematuria Musculoskeletal: Reports right wrist pain with limited range of motion, denies neck or back pain Integument: Denies rash or skin lesions Neurologic: Denies headache, focal weakness or sensory changes Complete systems were reviewed and found to be within normal limits, except as documented in this note. Current Medications: Current Meds: Current Medications Medications (Trade) Dose Ordered Sig/[facility] Start Time Stop Time Status Last Admin Dose Admin Fentanyl Citrate (Fentanyl 2ml Vial) 50 mcg 1X ONCE 05/04/20 09:30 05/04/20 09:31 05/04/20 09:27 50 MCG Allergies: Allergies: Allergies Coded Allergies Type Severity Reaction Last Updated Verified No Known Drug Allergies 01/29/20 No Physical Exam: PE: Constitutional: Well developed, well nourished, appears mildly uncomfortable, non-toxic appearance HENT: Normocephalic, atraumatic Eyes: PERRL, EOMI, conjunctiva normal, no discharge Neck: Normal range of motion, no tenderness to palpation, supple Lungs & Thorax: No respiratory distress, equal chest rise and fall, no tenderness to palpation of thoracic and lumbar spine with normal range of motion Abdomen: Soft, no tenderness, no distention, no guarding, or rebound tenderness Skin: Warm, dry, no erythema, no rash Back: No tenderness, no CVA tenderness Extremities: Tenderness to palpation, limited range of motion, and edema to her right wrist, radial pulses +2/4 bilaterally Neurologic: Alert and oriented X 3, no numbness or tingling, no focal deficits noted, CN II-XII grossly intact bilaterally Psychologic: Affect normal, judgment normal Current Patient Data: Vital Signs: Vital Signs Date Time Temp Pulse Resp B/P (MAP) Pulse Ox O2 Delivery O2 Flow Rate FiO2 05/04/20 09:27 16 Radiology/Procedures: Radiology/Procedures: WRIST 3V RIGHT History: Right wrist pain after a fall Comparison: None. Findings: 3 views of the right wrist are submitted. There is slightly displaced, angulated, somewhat comminuted fracture of the distal radius centered in the metaphysis. There is questionable extent to the radiocarpal articulation. There is very mild angulation with apex directed anteriorly. Ulnar styloid process fracture is probably old as corticated appearance. There is bone demineralization. Impression: 1. There is distal right radius fracture as described. There is bone demineralization. Ulnar styloid process fracture is believed to be old. Electronically signed by: Darion Frausto MD (05/04/2020 10:21 AM) [id number] Course & Med Decision Making: Course & Med Decision Making Pertinent Imaging studies reviewed. (See chart for details) Patient is a 89-year-old female who presents to the emergency room with right wrist pain s/p a mechanical fall that occurred this morning. Patient presented with moderate right wrist swelling and deformity that was visible on gross appearance. Patient was given pain medication and provided an ice pack which improved her symptoms. Right wrist x-ray showed a slightly displaced comminuted fracture of the distal radius with mild angulation anteriorly along with an ulnar styloid process fracture that appeared chronic. Patient was placed in a sugar tong splint and a sling was provided for comfort. Patient was instructed to follow up with orthopedics and will be sent home with pain medications. Patient stable for discharge with outpatient follow-up with PCP/Orthopedics. Discussed findings and plan with patient, who acknowledges understanding and agreement. José Disclaimer: José Disclaimer: This electronic medical record was generated, in whole or in part, using a voice recognition dictation system. Splinting Splinting : Location: Right wrist Pre-Made Type: aircast Splint: sugar-tong Pre-Proc Neuro Vasc Exam: normal Post-Proc Neuro Vasc Exam: normal Departure Departure: Impression: Primary Impression: Fracture of right distal radius Qualified Codes: S52.501A - Unspecified fracture of the lower end of right radius, initial encounter for closed fracture Disposition: HOME/RESIDENCE PRIOR TO ADM Condition: STABLE Referrals: FREDIS MCCARTY MD (PCP) JACOBY SUN MD Patient Instructions: Splint Care, [id number], Wrist Fracture, [id number] Scripts Tramadol Hcl (TRAMADOL HCL) 50 Mg Tablet 50 MG PO PRN Q6HRS PRN for PAIN, #14 TAB Prov: CHAO KAY DO 05/04/20 Justification of Admission: Justification of Admission: Justification of Admission Dx: N/A CHF: Cardiac Arrhythmias CHAO KAY DO May 04, 2020 09:56
--- NOTE | 2020-05-04 10:24 | RAD ---
WRIST 3V RIGHT History: Right wrist pain after a fall Comparison: None. Findings: 3 views of the right wrist are submitted. There is slightly displaced, angulated, somewhat comminuted fracture of the distal radius centered in the metaphysis. There is questionable extent to the radiocarpal articulation. There is very mild angulation with apex directed anteriorly. Ulnar styloid process fracture is probably old as corticated appearance. There is bone demineralization. Impression: 1. There is distal right radius fracture as described. There is bone demineralization. Ulnar styloid process fracture is believed to be old. Electronically signed by: Darion Frausto MD (05/04/2020 10:21 AM) [id number]
[2020-05-04 10:40] VITALS: BP 136/82
[2020-05-04] MEDS ORDERED: TRAM50TA PO (10:48)
== END 2020-05-04 10:56 | disposition home or self-care (01) ==
LOC: ER 09:09
DX: S52.501A Unspecified fracture of the lower end of right radius, initial encounter for closed fracture (principal); I10 Essential (primary) hypertension; Z79.01 Long term (current) use of anticoagulants; E78.00 Pure hypercholesterolemia, unspecified; Z86.73 Personal history of transient ischemic attack (TIA), and cerebral infarction without residual deficits; W18.39XA Other fall on same level, initial encounter; Y93.89 Activity, other specified; Y92.89 Other specified places as the place of occurrence of the external cause; Y99.8 Other external cause status
CPT/HCPCS: 29505; 73110; 96372; 99284; J3010

== ENCOUNTER → 2020-06-09 | Outpatient (CLI) | payer OTHER ==
[~2020-06-09] MED LIST changes: -AMIO200T4 PO; +AMIO200T6 PO; +TRAM50TA PO
--- NOTE | 2020-06-09 15:32 | RAD ---
EXAM: WRIST 3V RIGHT. HISTORY: Fracture follow-up. COMPARISON: 05/04/2020. FINDINGS: The patient is in cast, limiting underlying detail. A transverse fracture of the right distal radial metaphysis is in unchanged alignment. Dorsal inclination of the distal radial articular surface measures 20 degrees. Sclerosis indicates early healing. Positive ulnar variance measures 5 mm. An ulnar styloid fracture is noted. 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 It is moderate within the first and second interphalangeal joints. It is also mild to moderate along the fourth and fifth metacarpophalangeal joints. IMPRESSION: 1. Early healing changes about a distal radial metaphyseal fracture with stable shortening and dorsal angulation. 2. Ulnar styloid fracture. Electronically signed by: Darline Briggs MD (06/09/2020 3:29 PM) [id number]
== END ==
LOC: DXRAD 13:30
PROVIDERS: ATTEND Orthopaedic Surgery
DX: S62.101A Fracture of unspecified carpal bone, right wrist, initial encounter for closed fracture (principal); S52.611A Displaced fracture of right ulna styloid process, initial encounter for closed fracture; M18.11 Unilateral primary osteoarthritis of first carpometacarpal joint, right hand; X58.XXXA Exposure to other specified factors, initial encounter; Y93.89 Activity, other specified; Y92.89 Other specified places as the place of occurrence of the external cause; Y99.8 Other external cause status
CPT/HCPCS: 73110

== ENCOUNTER 2020-06-16 15:56 | Inpatient (IN) | payer MEDICARE, OTHER ==
[~2020-06-16] VITALS: Ht 160 cm; Wt 70.6 kg
[2020-06-16] MEDS ORDERED: IV NORMAL SALINE 1,000ML 1,000 ML IV ONE (16:45)
--- NOTE | 2020-06-16 16:49 | EKG ---
[address] [address] Test Date: 2020-06-16 Test Time: 16:41:55 Pat Name: SENAIT LEE Department: Room: Gender: F Crowning Inspector: ZHEN : [id number] Requested By: CHAO KAY Order Number: [id number] Reading MD: Measurements Intervals [place]ahan Rate: 93 P: -46 CO: 240 QRS: -35 QRSD: 126 T: 100 QT: 400 QTc: 500 Interpretive Statements SINUS RHYTHM PROLONGED CO INTERVAL ABNORMAL LEFT AXIS DEVIATION LOW LIMB LEAD VOLTAGE NON SPECIFIC INTRAVENTRICULAR BLOCK QRS(T) CONTOUR ABNORMALITY CONSISTENT WITH ANTERIOR INFARCT PROBABLY OLD ABNORMAL ECG RI6.02 No previous ECG available for comparison
--- NOTE | 2020-06-16 16:50 | PHYS DOC ---
Past History Past Medical History: Cancer (colon), Dementia, High Cholesterol, Hypertension, Stroke Past Medical History Limited secondary to dementia Past Surgical History: Other Additional Past Surgical Histo: Colectomy Past Surgical History Limited secondary to dementia Smoking: Non-smoker Alcohol Use: None Drug Use: None Social History Limited secondary to dementia General Adult EDM: Chief Complaint: WEAKNESS/GENERALIZED HPI: HPI: Patient is a 89 year old Female who presents with generalized weakness. Patient was referred by Home Health who reports shortness of breath and generalized weakness. Patient is seen with her daughter. Patient states that she has shortness of breath and chest pain with exertion. Daughter reports that the patient has decreased appetite and increased sleep. Patient admits to urinary urgency and darker urine, and denies urinary frequency and dysuria. Daughter denies any blood in her stool, toilet paper or bowl or dark stools. Daughter reports patient has been more sedentary after breaking Right arm a few months back. Daughter denies any other trauma or falls. Patient denies any sick or COVID contacts. History limited due to patient's limited mental status. Review of Systems: Review of Systems: Constitutional: Denies fever or chills HENT: Denies nasal congestion or sore throat Respiratory: Admits cough or shortness of breath with exertion Cardiovascular: Admits chest pain with exertion. Denies palpitations GI: Denies abdominal pain, nausea, or vomiting : Admits urgency. Denies dysuria or hematuria Musculoskeletal: Denies back pain or joint pain Integument: Denies rash or skin lesions Neurologic: Admits generalized weakness, dementia. Denies headaches, focal weakness or sensory changes Complete systems were reviewed and found to be within normal limits, except as documented in this note. ROS limited secondary to mental status Current Medications: Current Meds: Current Medications Medications (Trade) Dose Ordered Sig/Sheeba Start Time Stop Time Status Last Admin Dose Admin Sodium Chloride 1,000 ml @ 1,000 mls/hr 1X ONCE 06/16/20 16:45 06/16/20 17:44 Allergies: Allergies: Allergies Coded Allergies Type Severity Reaction Last Updated Verified No Known Drug Allergies 06/16/20 No Physical Exam: PE: Constitutional: Well developed, well nourished, no acute distress, non-toxic appearance HENT: Normocephalic, atraumatic Eyes: PERRL, EOMI, conjunctiva normal, no discharge Neck: Normal range of motion, no tenderness, supple Lungs & Thorax: No respiratory distress, equal chest rise and fall Abdomen: Soft, tenderness to light palpation in LLQ, no rebound tenderness Skin: Warm, dry, no erythema, no rash, no bruising Back: No tenderness, no CVA tenderness Extremities: No tenderness, ROM limited, bilateral upper and lower extremity strength 4/5, no edema, distal radial and tibial pulses 2/4 Neurologic: Alert and oriented X 3, normal motor function, normal sensory function Psychologic: Affect normal, judgment normal Current Patient Data: Vital Signs: Vital Signs Date Time Temp Pulse Resp B/P (MAP) Pulse Ox O2 Delivery O2 Flow Rate FiO2 06/16/20 16:10 97.5 92 22 143/98 (113) 97 Room Air EKG: EKG: Performed on 06/16/2020 at 16:41:55. Read at 16:43 HR 63BPM Intervals - MS 240ms, QRS 126ms, QT 400ms, QTc 500ms Interpretation: Sinus rhythm with prolonged MS interval and inverted T waves in leads V1-V6. Compared to EKG performed on 04/11/2020 at 12:50:13. Radiology/Procedures: Radiology/Procedures: PROCEDURE: CT HEAD AND CERVICAL SPINE WO EXAM: CT Head without IV contrast INDICATION: Reason: weakness, hx of fall, pain / Spl. Instructions: / History: TECHNIQUE: Multi-detector row CT images were obtained of the head without the use of IV contrast. All CT scans performed at this facility utilize dose optimization techniques as appropriate to the exam, including the following: Automated exposure control and adjustment of the mA and/or KV according to patient size (this includes techniques or standardized protocols for targeted exams where dose is indication/reason for exam). COMPARISON: None FINDINGS: BRAIN PARENCHYMA: No evidence of acute intraparenchymal hemorrhage or infarct. Generalized parenchymal volume loss and white matter low density compatible chronic ischemic microvascular change is present. In addition, there is asymmetric lucency extending to the cortical surface in the left occipital lobe consistent with a chronic left occipital infarct.. VENTRICLES & EXTRA-AXIAL SPACES: Ventricles are within normal limits. Basilar cisterns are patent. No pathologic extra-axial fluid collection or mass. ORBITS: Orbital contents are unremarkable. SINUSES: Visualized paranasal sinuses and mastoid air cells are clear. OSSEOUS & SOFT TISSUES: Calvarium and skull base are intact. IMPRESSION: No acute intracranial pathology.. EXAM: CT Cervical Spine without IV contrast INDICATION: Reason: weakness, hx of fall, pain / Spl. Instructions: / History: TECHNIQUE: Multi-detector row CT images were obtained through the cervical spine without the use of IV contrast. Post-processing sagittal and coronal reconstructed images were obtained for interpretation. All CT scans performed at this facility utilize dose optimization techniques as appropriate to the exam, including the following: Automated exposure control and adjustment of the mA and/or KV according to patient size (this includes techniques or standardized protocols for targeted exams where dose is indication/reason for exam). COMPARISON: None FINDINGS: CRANIOCERVICAL JUNCTION: Unremarkable. ALIGNMENT: Minimal anterolisthesis of C4 on C5 is present. OSSEOUS: No evidence of fracture or bone destruction. DISC SPACES: Disc space narrowing most conspicuous at C5-C6 is present with osteophytic spurring. FACET JOINTS: Minimal facet hypertrophy, most conspicuous bilaterally at C3-C4 is present. SPINAL CANAL: No bony central canal stenosis is apparent. NEUROFORAMINA: Moderate right-sided C5-C6 foraminal stenosis is present. SOFT TISSUES: Unremarkable. IMPRESSION: C-spine degenerative changes. No acute osseous abnormality noted. EXAM: CT Chest, Abdomen, and Pelvis without IV contrast INDICATION: Reason: weakness, hx of fall, pain / Spl. Instructions: / History: TECHNIQUE: Multi-detector row CT images were acquired from the thoracic inlet through the ischial tuberosities without the use of IV contrast. Sagittal and coronal images were acquired from the transaxial data. All CT scans performed at this facility utilize dose optimization techniques as appropriate to the exam, including the following: Automated exposure control and adjustment of the mA and/or KV according to patient size (this includes techniques or standardized protocols for targeted exams where dose is indication/reason for exam). ORAL CONTRAST: Not administered COMPARISON: None FINDINGS: The absence of IV contrast limits evaluation of soft tissue pathology. CHEST: CARDIOVASCULAR: Mild cardiomegaly. Dense calcifications of the mitral annulus. Minimal calcifications in the aortic valve leaflets. MEDIASTINUM & JARRELL: No adenopathy or masses. LUNGS: Mild atelectatic changes in the medial segment right middle lobe. No focal consolidation, lung mass or suspicious lung nodules. A 4 mm nodule in the posterior right upper lobe (axial image 35 of 4 on series 2, sagittal image 90 of series 4) noted. PLEURAL SPACE: No pleural effusions or pneumothorax. OSSEOUS & SOFT TISSUE: Age-indeterminate, favored chronic, superior endplate T5 compression fracture ABDOMEN/PELVIS: LIVER: Unremarkable BILIARY SYSTEM: Gallbladder is unremarkable. Bile ducts are not dilated. PANCREAS: Unremarkable SPLEEN: Unremarkable ADRENALS: Unremarkable KIDNEYS & URETERS: 4.6 cm left renal cyst requires no additional imaging follow-up. Kidneys otherwise are unremarkable. BLADDER: Unremarkable REPRODUCTIVE ORGANS: Hysterectomy. incision postoperative segment right middle lobe.. GASTROINTESTINAL: Fecal mass in the rectal vault measuring 7.1 x 6.6 x 9.4 cm is present associated with wall thickening in the rectum. Moderate stool throughout the rest of the large bowel is also present along with scattered colonic diverticuli. No findings of bowel perforation and no dilated bowel loops suggestive of obstruction are seen. A soft tissue defect at the gastric cardia is present following oral contrast administration, best illustrated on axial image 74 of series 2. Although ingested food can appear similar, this more closely resembles a soft tissue mass and would benefit from correlation with endoscopy. Small hiatal hernia is present. MESENTERY/PERITONEUM/RETROPERITONEUM: Unremarkable VASCULAR: Scattered arterial calcifications. No aneurysm identified. LYMPH NODES: No adenopathy OSSEOUS & SOFT TISSUES: Generalized osteopenia. Posterior decompressive changes at L4 and L5. IMPRESSION: 1. Hiatal hernia and findings suspicious for soft tissue mass at the gastric cardia. Recommend correlation with upper GI series or direct endoscopy when clinically feasible. 2. Right upper lobe pulmonary nodule. The patient is considered at high risk for lung cancer, optional follow-up CT in 12 months could be pursued. The patient is not considered at high risk for lung cancer, no routine follow-up is recommended. 3. Age-indeterminate superior endplate compression fracture at T5, present in the setting of generalized osteopenia. 4. Findings consistent with constipation with possible stercoral colitis at the rectal vault. Correlate clinically. Electronically signed by: Fatou Hernandez MD (06/16/2020 5:57 PM) [facility] [place] Course & Med Decision Making: Course & Med Decision Making Ms. Cantor is a 89yo Female who presents with generalized weakness that began one week ago. Patient was referred by home health after noting shallow breathing, cough, and generalized weakness. Patient was seen and information was collected via daughter due to patient's limited mental status. PE was remarkable for tenderness to palpation in LLQ. CT of head, neck, thorax, abdomen and pelvis was performed. Patient requiring admission for further evaluation and treatment. Discussed with (hospitalist) who is in agreement with admission. Discussed findings and plan with patient, who acknowledges understanding and agreement. Dragon Disclaimer: Dragon Disclaimer: This electronic medical record was generated, in whole or in part, using a voice recognition dictation system. Departure Departure: Impression: Primary Impression: Generalized weakness Additional Impressions: Gastric mass Dementia Qualified Codes: F03.90 - Unspecified dementia without behavioral disturbance History of colon cancer Lactic acidosis Hypokalemia Elevated troponin Fecal impaction in rectum Disposition: ADMITTED INPT THIS HOSP Admitting Physician: Wiliam Delgado Condition: GUARDED Referrals: FREDIS MCCARTY MD (PCP) Critical Care Time Critical care time was 30 minutes which includes time at bedside, spent in discussion of patient's care with specialists and/or family members, with interpretation of laboratory and/or radiological studies and is exclusive of procedures. CHAO KAY DO Jun 16, 2020 16:50
[2020-06-16 17:20] LABS: BASO % 1 % (0-3); EOS # 0.1 x10^3/uL (0.0-0.7); EOS % 1 % (0-3); HEMATOCRIT 45.4 % (36.0-47.0); HEMOGLOBIN 14.8 g/dL (12.0-15.5); LYMPH # 1.9 x10^3/uL (1.0-4.8); LYMPH % 34 % (24-48); MEAN CORPUSCULAR HEMOGLOBIN 28 pg (25-35); MEAN CORPUSCULAR HGB CONC 33 g/dL (31-37); MEAN CORPUSCULAR VOLUME 86 fL (79-100); MONO # 0.4 x10^3/uL (0.0-1.1); MONO % 8 % (0-9); NEUT % 56 % (31-73); PLATELET COUNT 229 x10^3/uL (140-400); RED BLOOD COUNT 5.28 x10^6/uL (3.50-5.40); RED CELL DISTRIBUTION WIDTH 17.6 % (11.5-14.5); WHITE BLOOD COUNT 5.5 x10^3/uL (4.0-11.0)
[2020-06-16 17:29] LABS: ANION GAP 10 (6-14); BLOOD UREA NITROGEN 10 mg/dL (7-20); BUN/CREATININE RATIO 7 (6-20); CALCIUM 9.4 mg/dL (8.5-10.1); CARBON DIOXIDE 26 mmol/L (21-32); CHLORIDE 104 mmol/L (98-107); CREATININE 1.5 mg/dL (0.6-1.0); GFR 32.7; GLUCOSE 102 mg/dL (70-99); POTASSIUM 3.3 mmol/L (3.5-5.1); SODIUM 140 mmol/L (136-145)
[2020-06-16 17:40] LABS: LIPASE 69 U/L (73-393)
[2020-06-16 17:44] LABS: ALBUMIN 3.5 g/dL (3.4-5.0); ALK PHOS 122 U/L (46-116); ALT (SGPT) 18 U/L (14-59); AST (SGOT) 18 U/L (15-37); MAGNESIUM 2.1 mg/dL (1.8-2.4); TOTAL BILIRUBIN 0.7 mg/dL (0.2-1.0); TOTAL PROTEIN 6.9 g/dL (6.4-8.2)
--- NOTE | 2020-06-16 18:00 | RAD ---
EXAM: CT Head without IV contrast INDICATION: Reason: weakness, hx of fall, pain / Spl. Instructions: / History: TECHNIQUE: Multi-detector row CT images were obtained of the head without the use of IV contrast. All CT scans performed at this facility utilize dose optimization techniques as appropriate to the exam, including the following: Automated exposure control and adjustment of the mA and/or KV according to patient size (this includes techniques or standardized protocols for targeted exams where dose is indication/reason for exam). COMPARISON: None FINDINGS: BRAIN PARENCHYMA: No evidence of acute intraparenchymal hemorrhage or infarct. Generalized parenchymal volume loss and white matter low density compatible chronic ischemic microvascular change is present. In addition, there is asymmetric lucency extending to the cortical surface in the left occipital lobe consistent with a chronic left occipital infarct.. VENTRICLES & EXTRA-AXIAL SPACES: Ventricles are within normal limits. Basilar cisterns are patent. No pathologic extra-axial fluid collection or mass. ORBITS: Orbital contents are unremarkable. SINUSES: Visualized paranasal sinuses and mastoid air cells are clear. OSSEOUS & SOFT TISSUES: Calvarium and skull base are intact. IMPRESSION: No acute intracranial pathology.. EXAM: CT Cervical Spine without IV contrast INDICATION: Reason: weakness, hx of fall, pain / Spl. Instructions: / History: TECHNIQUE: Multi-detector row CT images were obtained through the cervical spine without the use of IV contrast. Post-processing sagittal and coronal reconstructed images were obtained for interpretation. All CT scans performed at this facility utilize dose optimization techniques as appropriate to the exam, including the following: Automated exposure control and adjustment of the mA and/or KV according to patient size (this includes techniques or standardized protocols for targeted exams where dose is indication/reason for exam). COMPARISON: None FINDINGS: CRANIOCERVICAL JUNCTION: Unremarkable. ALIGNMENT: Minimal anterolisthesis of C4 on C5 is present. OSSEOUS: No evidence of fracture or bone destruction. DISC SPACES: Disc space narrowing most conspicuous at C5-C6 is present with osteophytic spurring. FACET JOINTS: Minimal facet hypertrophy, most conspicuous bilaterally at C3-C4 is present. SPINAL CANAL: No bony central canal stenosis is apparent. NEUROFORAMINA: Moderate right-sided C5-C6 foraminal stenosis is present. SOFT TISSUES: Unremarkable. IMPRESSION: C-spine degenerative changes. No acute osseous abnormality noted. EXAM: CT Chest, Abdomen, and Pelvis without IV contrast INDICATION: Reason: weakness, hx of fall, pain / Spl. Instructions: / History: TECHNIQUE: Multi-detector row CT images were acquired from the thoracic inlet through the ischial tuberosities without the use of IV contrast. Sagittal and coronal images were acquired from the transaxial data. All CT scans performed at this facility utilize dose optimization techniques as appropriate to the exam, including the following: Automated exposure control and adjustment of the mA and/or KV according to patient size (this includes techniques or standardized protocols for targeted exams where dose is indication/reason for exam). ORAL CONTRAST: Not administered COMPARISON: None FINDINGS: The absence of IV contrast limits evaluation of soft tissue pathology. CHEST: CARDIOVASCULAR: Mild cardiomegaly. Dense calcifications of the mitral annulus. Minimal calcifications in the aortic valve leaflets. MEDIASTINUM & JARRELL: No adenopathy or masses. LUNGS: Mild atelectatic changes in the medial segment right middle lobe. No focal consolidation, lung mass or suspicious lung nodules. A 4 mm nodule in the posterior right upper lobe (axial image 35 of 4 on series 2, sagittal image 90 of series 4) noted. PLEURAL SPACE: No pleural effusions or pneumothorax. OSSEOUS & SOFT TISSUE: Age-indeterminate, favored chronic, superior endplate T5 compression fracture ABDOMEN/PELVIS: LIVER: Unremarkable BILIARY SYSTEM: Gallbladder is unremarkable. Bile ducts are not dilated. PANCREAS: Unremarkable SPLEEN: Unremarkable ADRENALS: Unremarkable KIDNEYS & URETERS: 4.6 cm left renal cyst requires no additional imaging follow-up. Kidneys otherwise are unremarkable. BLADDER: Unremarkable REPRODUCTIVE ORGANS: Hysterectomy. incision postoperative segment right middle lobe.. GASTROINTESTINAL: Fecal mass in the rectal vault measuring 7.1 x 6.6 x 9.4 cm is present associated with wall thickening in the rectum. Moderate stool throughout the rest of the large bowel is also present along with scattered colonic diverticuli. No findings of bowel perforation and no dilated bowel loops suggestive of obstruction are seen. A soft tissue defect at the gastric cardia is present following oral contrast administration, best illustrated on axial image 74 of series 2. Although ingested food can appear similar, this more closely resembles a soft tissue mass and would benefit from correlation with endoscopy. Small hiatal hernia is present. MESENTERY/PERITONEUM/RETROPERITONEUM: Unremarkable VASCULAR: Scattered arterial calcifications. No aneurysm identified. LYMPH NODES: No adenopathy OSSEOUS & SOFT TISSUES: Generalized osteopenia. Posterior decompressive changes at L4 and L5. IMPRESSION: 1. Hiatal hernia and findings suspicious for soft tissue mass at the gastric cardia. Recommend correlation with upper GI series or direct endoscopy when clinically feasible. 2. Right upper lobe pulmonary nodule. The patient is considered at high risk for lung cancer, optional follow-up CT in 12 months could be pursued. The patient is not considered at high risk for lung cancer, no routine follow-up is recommended. 3. Age-indeterminate superior endplate compression fracture at T5, present in the setting of generalized osteopenia. 4. Findings consistent with constipation with possible stercoral colitis at the rectal vault. Correlate clinically. Electronically signed by: Fatou Hernandez MD (06/16/2020 5:57 PM) [facility] [place]
[2020-06-16] MEDS ORDERED: ASPIRIN CHEWABLE 81 MG TABLET. PO ONE (18:30)
[2020-06-16] MEDS ORDERED: ONDANSETRON PF 4 MG/2 ML VIAL. IVP PRN (19:00)
[2020-06-16 21:15] VITALS: BP 131/82
--- NOTE | 2020-06-16 21:15 | NUR ---
Pt admitted to ICU bed 5 from ER via [facility], accompanied by EMS and nursing staff. Pt transferred from [facility] to bed x3 assist. Pt here for AMS, increased weakness and gastric mass found on CT. Pt with hx of Colon CA with small bowel sx. Admission assessment completed. VSS. Pt placed on Telemetry, SR noted on monitor. Pt A&Ox2, lethargic but pleasantly forgetful with slight hx dementia. Health history and home medications reviewed with daughter Sera over the phone. Pt lives at home with daughter & has home health out of [place], [place]. Daughter-Sera stated that ever since her mother fell in April (05/04/2020) and broke her wrist, her mother just "has no motivations to eat or walk, she just sleeps most of the time." Eliquis for VTE. Sera (Daughter) wants pt to get flu vaccine while at hospital, order placed with Pharmacy. PT/OT, CM and Dietary consulted. Pt was given written information regarding hospital policies, unit procedures and contact persons. Valuables were checked and left at bedside with pt. Bed alarm in place.
[2020-06-16] MEDS: IV NORMAL SALINE 1,000ML 1,000 ML IV SCH (21:41)
[2020-06-16] MEDS ORDERED: DOCU-109 PO (22:00)
[2020-06-16] MEDS ORDERED: DOCUSATE SODIUM 100 MG CAPSULE PO PRN (22:15)
[2020-06-16] MEDS ORDERED: POTASSIUM CHLORIDE 20 MEQ TABLET.ER. PO ONE (22:15)
[2020-06-16] MEDS ORDERED: POLYETHYLENE GLYCOL 3350 17 GM PACKET. PO PRN (22:15)
[2020-06-16] MEDS ORDERED: traMADol 50 MG TABLET PO PRN (22:15)
[2020-06-16] MEDS ORDERED: ACETAMINOPHEN 325 MG TABLET PO PRN (22:15)
[2020-06-17] VITALS (10 sets, daily range): BP systolic 92–148; BP diastolic 51–91
[2020-06-17] MEDS: IV NORMAL SALINE 1,000ML 1,000 ML IV SCH ×2 (05:36→15:34)
[2020-06-17 06:59] LABS: BASO % 1 % (0-3); EOS # 0.1 x10^3/uL (0.0-0.7); EOS % 1 % (0-3); LYMPH # 1.3 x10^3/uL (1.0-4.8); LYMPH % 26 % (24-48); MEAN CORPUSCULAR HEMOGLOBIN 28 pg (25-35); MEAN CORPUSCULAR HGB CONC 33 g/dL (31-37); MEAN CORPUSCULAR VOLUME 87 fL (79-100); MONO # 0.4 x10^3/uL (0.0-1.1); MONO % 7 % (0-9); NEUT # 3.3 x10^3uL (1.8-7.7); NEUT % 65 % (31-73); PLATELET COUNT 185 x10^3/uL (140-400); RED BLOOD COUNT 4.62 x10^6/uL (3.50-5.40); RED CELL DISTRIBUTION WIDTH 17.5 % (11.5-14.5); WHITE BLOOD COUNT 5.1 x10^3/uL (4.0-11.0)
[2020-06-17 07:17] LABS: ALBUMIN 2.7 g/dL (3.4-5.0); CALCIUM 8.2 mg/dL (8.5-10.1); CREATININE 1.2 mg/dL (0.6-1.0); GFR 42.3; POTASSIUM 4.1 mmol/L (3.5-5.1); TOTAL BILIRUBIN 0.7 mg/dL (0.2-1.0); TOTAL PROTEIN 5.3 g/dL (6.4-8.2)
--- NOTE | 2020-06-17 07:57 | NUR ---
LAB CALLED R/T TROPONIN 0.069. DR. TERAN NOTIFIED , CRITICAL RESULT DOCUMENTED.
--- NOTE | 2020-06-17 08:08 | NUR ---
CONSULT FOR CARDIOLOGY CALLED.
[2020-06-17] MEDS ORDERED: FLU VACC QS 2020-21(6MOS+)/PF 0.5 ML SYRINGE. VAX IM ONE (09:00)
[2020-06-17] MEDS: POTASSIUM CITRATE 10 MEQ TABLET.ER PO SCH (09:00)
[2020-06-17] MEDS: BISACODYL TAB 5 MG TABLET.DR. PO SCH (09:27)
[2020-06-17] MEDS: APIXABAN 5 MG TABLET. PO SCH ×2 (09:27→21:34)
[2020-06-17] MEDS: AMIODARONE HCL 200 MG TABLET. PO SCH (09:27)
[2020-06-17 15:23] LABS: BACTERIA,URINE 0 /HPF (0-FEW); BILIRUBIN,URINE NEG (NEG); CLARITY,URINE CLEAR; COLOR,URINE STRAW; GLUCOSE,URINE NEG (NEG); NITRITE,URINE NEG (NEG); RBC,URINE RARE /HPF (0-2); SQUAMOUS EPITHELIAL CELL,UR FEW /LPF; UROBILINOGEN,URINE 0.2 mg/dL (0.2 mg/dL); WBC,URINE RARE /HPF (0-4)
[2020-06-17] MEDS ORDERED: DOCUSATE SODIUM 100 MG CAPSULE PO PRN (16:15)
[2020-06-17] MEDS ORDERED: MAGNESIUM CITRATE 296 ML SOLUTION. PO ONE (16:30)
--- NOTE | 2020-06-17 16:44 | HP ---
ADMIT DATE: 06/16/2020 HISTORY OF PRESENT ILLNESS: The patient is an 89-year-old female patient who presented to the Emergency Room of [facility] with a complaint of weakness that is generalized. The patient was referred by home health who reports shortness of breath and generalized weakness. She was seen with her daughter. The patient stated that she has shortness of breath and chest pain with exertion. Daughter reported that the patient has decreased appetite and decreased sleep. The patient admits to urinary urgency and darker urine, but denied any urinary frequency or dysuria. The daughter denied any blood in her stool, toilet paper or bowel or dark stool, but reports that the patient has been more sedentary after breaking right arm a few months ago; however, there is no history of any fall or trauma. Denied any risk or COVID contact. The patient was extensively investigated, has had lab work, which showed that she has mild hypokalemia and impaired kidney function. Her white cell count, hemoglobin, hematocrit and platelets are all within normal range. Her prothrombin time and INR were slightly elevated; aPTT normal. Her urinalysis was essentially unremarkable. She has had CT scan of the head and cervical spine, which basically showed no acute intracranial pathology. CT scan of the cervical spine without IV contrast again showed C-spine degenerative changes, no acute osseous abnormality noted. The patient also had a CT scan of the chest, abdomen and pelvis without IV contrast. The CT scan of the chest showed hiatal hernia and finding of suspicious soft tissue mass at the gastric cardia. Recommend correlation with upper GI series or direct endoscopy when clinically feasible; has right upper lobe pulmonary nodule. The patient is considered at high risk for lung cancer. She has also age indeterminate superior endplate compression fracture of T5 present in the setting of generalized osteopenia; finding consistent with constipation with possible stercoral colitis at the rectal vault. The patient was basically admitted for generalized weakness, gastric mass and dementia. She was also found to have lactic acidosis, hypokalemia, elevated troponin and fecal impaction. She was given a liter of fluid and potassium supplement and was continued on all her other medication. PAST MEDICAL HISTORY: Significant for atrial fibrillation, congestive heart failure, hyperlipidemia. She is also known to have pulmonary emboli and DVT. She has a history of CVA, dementia, history of colon cancer and chronic anemia. PAST SURGICAL HISTORY: Significant for hysterectomy. FAMILY HISTORY: Significant for stroke and cancer. SOCIAL HISTORY: She lives with her daughter. She does not smoke, drink alcohol or use recreational drugs. ALLERGIES: She has no known drug allergies. She apparently had also history of appendectomy, cholecystectomy and hysterectomy as well as chronic kidney disease. MEDICATIONS: She is currently on following medications: She is on apixaban 5 mg twice a day, amiodarone 200 mg once a day, atorvastatin calcium 40 mg at bedtime, diltiazem 240 mg daily, tramadol 50 mg every 6 hours, acetaminophen 650 mg every 4 hours, mirtazapine 220 mg p.o. daily, potassium citrate 10 mEq daily, bisacodyl 5 mg tablet once a day, docusate sodium 300 mg every other day and polyethylene glycol 17 grams daily. PHYSICAL EXAMINATION: GENERAL: On arrival to the Emergency Room, the patient looked well and was clearly in no apparent respiratory distress. No pallor, jaundice, cyanosis, or thyromegaly. No jugular venous distention or limb edema. VITAL SIGNS: Her heart rate was 79, blood pressure was 124/67, temperature 97.1, respiratory rate was 16, and oxygen saturation was 96%. HEAD, EYES, EARS, NOSE AND THROAT: Showed normocephalic, atraumatic. NECK: Supple. HEART: Showed normal first and second heart sounds. No gallop or murmur. CHEST: Clear to auscultation. No crepitation or rhonchi. ABDOMEN: Distended, soft, nontender. NEUROLOGIC: She was awake, alert, responding appropriately. All cranial nerves intact. EXTREMITIES: She moves all extremities without difficulty, although she has generalized weakness. LABORATORY DATA: Her lab work on arrival to the Emergency Room showed a white cell count 5500, hemoglobin 14.8, hematocrit 45, MCV 86 and platelet count 229,000 with normal manual differential. Her chemistry showed a serum sodium 140, potassium 3.3, chloride 104, bicarbonate 26, anion gap of 10, BUN 10, creatinine 1.5, estimated GFR was 33 mL per minute. Her glucose 102, calcium was 9.4, magnesium 2.1. Total bilirubin, AST, ALT were normal. Alkaline phosphatase slightly elevated. Her total protein was 6.9, albumin 3.5. Her troponin was 0.068. Urinalysis was essentially unremarkable and her prothrombin time, INR were slightly elevated, aPTT was 26. Her CT scan of the head and cervical spine were unremarkable and CT scan of the chest, abdomen and pelvis showed that the patient has hiatal hernia and finding suspicious for soft tissue mass at the gastric cardia. Recommend correlation with upper GI series or direct endoscopy when clinically feasible. She has right upper lobe pulmonary nodule. The patient is considered high risk for lung cancer; optional followup CT scan in 12 months could be pursued. Age indeterminate superior endplate compression fracture at T5 present in the setting of generalized osteopenia and findings consistent with constipation with possible stercoral colitis at the rectal vault. Please correlate clinically. ASSESSMENT AND PLAN: In summary, this is an 89-year-old female patient who was admitted with generalized weakness. She is known to have dementia and was found to have hypokalemia, mild lactic acidosis and severe constipation. We will continue all her medications and we will correct her potassium and reconcile all her medication. We will also get physical and occupational therapy. I will repeat her lab work. ALEX TERAN MD DR: ASHLYN/yong JOB#: [id number] / [id number]
[2020-06-17] MEDS: POLYETHYLENE GLYCOL 3350 17 GM PACKET. PO SCH ×2 (17:23→21:35)
--- NOTE | 2020-06-17 17:46 | PDOC2 ---
CONSULT DOS: DATE: 06/17/20 TIME: 17:35 Reason for Consult: Minimally elevated troponin. Referring Physician: Dr. Delgado Chief Complaint weakness Source: Chart review, Patient Problem List Problems Medical Problems: (1) Dementia Status: Acute (2) Elevated troponin Status: Acute (3) Fecal impaction in rectum Status: Acute (4) Gastric mass Status: Acute (5) History of colon cancer Status: Acute (6) Hypokalemia Status: Acute (7) Lactic acidosis Status: Acute History of Present Illness The patient is an 89-year-old female was admitted for progressive weakness and decreased level of consciousness. The patient has an extensive medical history including colon cancer, hypertension, a CVA and dementia. She reportedly had increasingly dark urine and also had a right arm fracture repair several months ago and since then has become less active. Work-up included a CT head scan that showed no acute changes. CT scan of the chest shows a mild shows mild cardiomegaly. Also on abdominal scanning there is a soft tissue mass in the gastric area. We have been asked to see the patient secondary to minimally elevated troponins at 0.069 and 0.068. She is demented and cannot give a clear history. However she is feeling better today. She does not appear to have any acute chest pain. There is no clear history of coronary disease or congestive heart failure although she does have hypertension and hyperlipidemia. Cardiovascular: HTN, Other (Hyperlipidemia) Pulmonary: Bronchitis CENTRAL NERVOUS SYSTEM: CVA, Dementia Heme/Onc: Cancer Psych: Anxiety Musculoskeletal: Osteoarthritis Past Surgical History: Hysterectomy, Colon Resection (Arm fracture repair) Family History: Hypertension, Stroke Smoke: No ALCOHOL: none Current Medications Current Medications Sodium Chloride 1,000 ml @ 1,000 mls/hr 1X ONCE IV Last administered on 06/16/20at 18:01; Start 06/16/20 at 16:45; Stop 06/16/20 at 17:44; Status DC Aspirin (Aspirin Chewable) 324 mg 1X ONCE PO Last administered on 06/16/20at 18:50; Start 06/16/20 at 18:30; Stop 06/16/20 at 18:31; Status DC Ondansetron HCl (Zofran) 4 mg PRN Q4HRS PRN IVP NAUSEA/VOMITING; Start 06/16/20 at 19:00; Stop 06/17/20 at 18:59 Sodium Chloride 1,000 ml @ 100 mls/hr Q10H IV Last administered on 06/17/20at 15:34; Start 06/16/20 at 18:54; Stop 06/17/20 at 18:53 Acetaminophen (Tylenol) 650 mg PRN Q4HRS PRN PO PAIN; Start 06/16/20 at 22:15 Amiodarone HCl (Cordarone) 200 mg DAILY PO Last administered on 06/17/20 09:27; Start 06/17/20 at 09:00 Apixaban (Eliquis) 5 mg BID PO Last administered on 06/17/20at 09:27; Start 06/17/20 at 09:00 Bisacodyl (Dulcolax Tab) 5 mg 3X/WEEK PO Last administered on 06/17/20at 09:27; Start 06/17/20 at 09:00 Docusate Sodium (Colace) 300 mg PRN Q48HR PRN PO CONSTIPATION Last administered on 06/16/20at 22:27; Start 06/16/20 at 22:15; Stop 06/17/20 at 16:21; Status DC Polyethylene Glycol (miraLAX) 17 gm PRN DAILY PRN PO CONSTIPATION Last administered on 06/17/20at 12:17; Start 06/16/20 at 22:15; Stop 06/17/20 at 16:21; Status DC Potassium Citrate (Urocit-K) 10 meq DAILY PO ; Start 06/17/20 at 09:00 Tramadol HCl (Ultram) 50 mg PRN Q6HRS PRN PO PAIN; Start 06/16/20 at 22:15 Atorvastatin Calcium (Lipitor) 40 mg QHS PO ; Start 06/17/20 at 21:00 Diltiazem HCl (Cardizem 24hr Cd) 240 mg DAILY PO Last administered on 06/17/20at 09:27; Start 06/17/20 at 09:00 Mirtazapine (Remeron Argenis-Tab) 22.5 mg QHS PO ; Start 06/17/20 at 21:00 Potassium Chloride (Klor-Con) 40 meq 1X ONCE PO Last administered on 06/16/20at 22:26; Start 06/16/20 at 22:15; Stop 06/16/20 at 22:23; Status DC Influenza Virus Vaccine Quadrival (Fluzone Quad Syringe) 0.5 ml ONCE ONCE VAX IM ; Start 06/17/20 at 09:00; Stop 06/17/20 at 09:01; Status DC Docusate Sodium (Colace) 300 mg PRN DAILY PRN PO CONSTIPATION; Start 06/17/20 at 16:15 Polyethylene Glycol (miraLAX) 17 gm BID PO ; Start 06/17/20 at 16:15 Magnesium Citrate (Citroma) 296 ml 1X ONCE PO ; Start 06/17/20 at 16:30; Stop 06/17/20 at 16:31; Status DC Active Scripts Active Tramadol Hcl (Tramadol HCl) 50 Mg Tablet 50 Mg PO PRN Q6HRS PRN Amiodarone Hcl 200 Mg Tablet 1 Tab PO DAILY 30 Days Diltiazem 24Hr ER (Diltiazem HCl) 240 Mg Tab.er.24h 1 Tab PO DAILY 30 Days Reported Colace (Docusate Sodium) 100 Mg Capsule 300 Mg PO QODAY PRN Eliquis (Apixaban) 5 Mg Tablet 5 Mg PO BID Tylenol (Acetaminophen) 325 Mg Tablet 650 Mg PO Q4HRS PRN Urocit-K (Potassium Citrate) 10 Meq Tablet.er 10 Meq PO DAILY Miralax (Polyethylene Glycol 3350) 17 Gm Powd.pack 17 Gm PO DAILY PRN Remeron (Mirtazapine) 45 Mg Tab.rapdis 0.5 Tab PO HS Bisacodyl 5 Mg Tablet.dr 5 Mg PO 3X/WEEK Lipitor (Atorvastatin Calcium) 40 Mg Tablet 40 Mg PO DAILY Allergies: Coded Allergies: No Known Drug Allergies (Unverified , 06/16/20) Review of System Difficult review of systems secondary to the patient's dementia. Patient appears to be having mild abdominal discomfort. General: mild distress HEENT: Atraumatic Lungs: Other (Minimally decreased breath sounds) Heart: Regular rate Abdomen: Normal bowel sounds VITALS Vital Signs Date Time Temp Pulse Resp B/P (MAP) Pulse Ox O2 Delivery O2 Flow Rate FiO2 06/17/20 16:38 98.2 89 16 131/81 (98) 93 Room Air Labs Laboratory Tests Test 06/16/20 16:57 06/16/20 20:45 06/17/20 06:40 06/17/20 14:55 White Blood Count 5.5 x10^3/uL (4.0-11.0) 5.1 x10^3/uL (4.0-11.0) Red Blood Count 5.28 x10^6/uL (3.50-5.40) 4.62 x10^6/uL (3.50-5.40) Hemoglobin 14.8 g/dL (12.0-15.5) 13.0 g/dL (12.0-15.5) Hematocrit 45.4 % (36.0-47.0) 40.0 % (36.0-47.0) Mean Corpuscular Volume 86 fL (79-100) 87 fL (79-100) Mean Corpuscular Hemoglobin 28 pg (25-35) 28 pg (25-35) Mean Corpuscular Hemoglobin Concent 33 g/dL (31-37) 33 g/dL (31-37) Red Cell Distribution Width 17.6 % (11.5-14.5) 17.5 % (11.5-14.5) Platelet Count 229 x10^3/uL (140-400) 185 x10^3/uL (140-400) Neutrophils (%) (Auto) 56 % (31-73) 65 % (31-73) Lymphocytes (%) (Auto) 34 % (24-48) 26 % (24-48) Monocytes (%) (Auto) 8 % (0-9) 7 % (0-9) Eosinophils (%) (Auto) 1 % (0-3) 1 % (0-3) Basophils (%) (Auto) 1 % (0-3) 1 % (0-3) Neutrophils # (Auto) 3.0 x10^3uL (1.8-7.7) 3.3 x10^3uL (1.8-7.7) Lymphocytes # (Auto) 1.9 x10^3/uL (1.0-4.8) 1.3 x10^3/uL (1.0-4.8) Monocytes # (Auto) 0.4 x10^3/uL (0.0-1.1) 0.4 x10^3/uL (0.0-1.1) Eosinophils # (Auto) 0.1 x10^3/uL (0.0-0.7) 0.1 x10^3/uL (0.0-0.7) Basophils # (Auto) 0.0 x10^3/uL (0.0-0.2) 0.0 x10^3/uL (0.0-0.2) Prothrombin Time 12.1 SEC (9.4-11.4) Prothromb Time International Ratio 1.3 (0.9-1.1) Activated Partial Thromboplast Time 26 SEC (23-33) Sodium Level 140 mmol/L (136-145) 139 mmol/L (136-145) Potassium Level 3.3 mmol/L (3.5-5.1) 4.1 mmol/L (3.5-5.1) Chloride Level 104 mmol/L (98-107) 108 mmol/L (98-107) Carbon Dioxide Level 26 mmol/L (21-32) 22 mmol/L (21-32) Anion Gap 10 (6-14) 9 (6-14) Blood Urea Nitrogen 10 mg/dL (7-20) 10 mg/dL (7-20) Creatinine 1.5 mg/dL (0.6-1.0) 1.2 mg/dL (0.6-1.0) Estimated GFR (Cockcroft-Gault) 32.7 42.3 BUN/Creatinine Ratio 7 (6-20) 8 (6-20) Glucose Level 102 mg/dL (70-99) 93 mg/dL (70-99) Lactic Acid Level 2.5 mmol/L (0.4-2.0) 0.9 mmol/L (0.4-2.0) Calcium Level 9.4 mg/dL (8.5-10.1) 8.2 mg/dL (8.5-10.1) Magnesium Level 2.1 mg/dL (1.8-2.4) Total Bilirubin 0.7 mg/dL (0.2-1.0) 0.7 mg/dL (0.2-1.0) Aspartate Amino Transf (AST/SGOT) 18 U/L (15-37) 15 U/L (15-37) Alanine Aminotransferase (ALT/SGPT) 18 U/L (14-59) 14 U/L (14-59) Alkaline Phosphatase 122 U/L (46-116) 90 U/L (46-116) Creatine Kinase 23 U/L (26-192) Creatine Kinase MB (Mass) < 0.5 ng/mL (0.0-3.6) Creatine Kinase MB Relative Index % (0-4) Troponin I Quantitative 0.068 ng/mL (0-0.055) 0.069 ng/mL (0-0.055) QU-Fig-L-Type Natriuretic Peptide 932 pg/mL (0-449) Total Protein 6.9 g/dL (6.4-8.2) 5.3 g/dL (6.4-8.2) Albumin 3.5 g/dL (3.4-5.0) 2.7 g/dL (3.4-5.0) Albumin/Globulin Ratio 1.0 (1.0-1.7) 1.0 (1.0-1.7) Lipase 69 U/L (73-393) Urine Collection Type Unknown Urine Color Straw Urine Clarity Clear Urine pH 6.0 Urine Specific [place] 1.025 Urine Protein Neg (NEG-TRACE) Urine Glucose (UA) Neg mg/dL (NEG) Urine Ketones (Stick) Neg mg/dL (NEG) Urine Blood Neg (NEG) Urine Nitrite Neg (NEG) Urine Bilirubin Neg (NEG) Urine Urobilinogen Dipstick 0.2 mg/dL (0.2 mg/dL) Urine Leukocyte Esterase Neg (NEG) Urine RBC Rare /HPF (0-2) Urine WBC Rare /HPF (0-4) Urine Squamous Epithelial Cells Few /LPF Urine Bacteria 0 /HPF (0-FEW) Images As above. Assessment/Plan 1. Generalized weakness and decreased level of consciousness. Patient also has dementia which makes her evaluation more problematic. She is continue on baseline medications with possible IV fluids as needed. We will obtain further old records as possible. 2. Dementia. History of a stroke. Continuing present treatment. 3. Hypertension. Under better control. Continue baseline medications. 4. Hyperlipidemia. Will check lab. 5. History of colon cancer. 6. Minimally elevated troponin at 0.069 and 0.068. No chest pain. Would continue on telemetry and monitor. Future echo either as an inpatient or an outpatient based on her clinical course. Thank you for allowing us to participate in the care of your patient. FRENCH SANDERS MD Jun 17, 2020 17:46
[2020-06-17] MEDS: ATORVASTATIN CALCIUM 20 MG TABLET PO SCH (21:34)
[2020-06-17] MEDS: MIRTAZAPINE ODT 15 MG TAB.RAPDIS. PO SCH (21:35)
[2020-06-18] MEDS: IV NORMAL SALINE 1,000ML 1,000 ML IV SCH ×2 (01:21→12:04)
--- NOTE | 2020-06-18 02:42 | PN ---
DATE: 06/16/2020 SUBJECTIVE: The patient is resting flat in bed, complaining of abdominal pain and severe constipation. She has not had any bowel movement, though attempted multiple times. Denied any chest pain or shortness of breath. PHYSICAL EXAMINATION: GENERAL: When I examined her this afternoon, she looked well and was clearly in no apparent respiratory distress. No pallor, jaundice, cyanosis or thyromegaly. No jugular venous distention or limb edema. VITAL SIGNS: Her heart rate was 88, blood pressure was 148/90, temperature was 97.7, respiratory rate was 14 and oxygen saturation was 95%. HEAD, EYES, EARS, NOSE AND THROAT: Showed normocephalic, atraumatic. NECK: Supple. HEART: Showed normal first and second heart sounds. No gallop or murmur. CHEST: Clear to auscultation. No crepitation or rhonchi. ABDOMEN: Distended, soft. Mild tenderness in the left lower quadrant. There is no guarding or rigidity. No organomegaly. All hernial orifices intact. Bowel sounds normal. NEUROLOGIC: She is awake, alert, responding appropriately. All cranial nerves intact. She moves extremities without difficulty. LABORATORY DATA: Her lab work this morning showed serum sodium was 139, potassium 4.1, chloride 108, bicarbonate 22, anion gap of 9. BUN 10, creatinine 1.2, estimated GFR was 42 mL per minute. Her glucose was 93, calcium was 8.2. Her lactic acid down to 0.9. Total bilirubin, AST, ALT, alkaline phosphatase were normal. Her second troponin was 0.069. Her total protein was 5.3, albumin was 2.7. Her white cell count was 5100, hemoglobin 13, hematocrit 40, MCV 87 and platelet count of 185,000. ASSESSMENT: 1. Generalized weakness. 2. Gastric mass near the gastric cardia and large hiatal hernia. 3. Lactic acidosis, resolved. 4. Hypokalemia, resolved. 5. Elevated troponin, trending upward. Fecal impaction, I did actually digital rectal exam and the patient's rectal vault is full of hard stool and I did digital disimpaction. Does have also acute kidney injury. Her creatinine came down from 1.6 to 1.2. PLAN: My plan is to increase her polyethylene glycol to twice a day as well as her Colace to twice daily. We will also give her milk of magnesia and I will repeat all her labs including thyroid function test. Also, we will consult Physical and Occupational Therapy and also Cardiology for elevated troponin. ALEX TERAN MD DR: ASHLYN/yong JOB#: [id number] / [id number]
[2020-06-18 05:03] VITALS: BP 124/73
[2020-06-18 09:17] LABS: ALBUMIN 2.8 g/dL (3.4-5.0); CREATININE 1.2 mg/dL (0.6-1.0); GFR 42.3; POTASSIUM 3.7 mmol/L (3.5-5.1); TOTAL BILIRUBIN 0.7 mg/dL (0.2-1.0); TOTAL PROTEIN 5.6 g/dL (6.4-8.2)
[2020-06-18 09:24] LABS: HEMATOCRIT 39.7 % (36.0-47.0); HEMOGLOBIN 12.8 g/dL (12.0-15.5); RED BLOOD COUNT 4.57 x10^6/uL (3.50-5.40); RED CELL DISTRIBUTION WIDTH 17.8 % (11.5-14.5); WHITE BLOOD COUNT 4.3 x10^3/uL (4.0-11.0)
[2020-06-18] MEDS: POTASSIUM CITRATE 10 MEQ TABLET.ER PO SCH (09:36)
[2020-06-18] MEDS: APIXABAN 5 MG TABLET. PO SCH ×2 (09:36→21:40)
[2020-06-18] MEDS: AMIODARONE HCL 200 MG TABLET. PO SCH (09:36)
[2020-06-18] MEDS: POLYETHYLENE GLYCOL 3350 17 GM PACKET. PO SCH ×2 (09:37→21:40)
[2020-06-18] MEDS ORDERED: LIDOCAINE 2% TOPICAL JELLY 5GM TUBE. TP PRN (10:45)
--- NOTE | 2020-06-18 11:55 | NUR ---
pt continues to be constipated. Dr. Delgado is notified and is at bedside to perform removal of stool from the pt's rectum, to make the process more comfortable lidocaine was applied to the rectum.
--- NOTE | 2020-06-18 16:01 | RAD ---
WRIST 2V RIGHT, FOREARM RIGHT History: Reason: fall with pain / Spl. Instructions: / History: Technique: 2 views of the right forearm and 3 views of the right wrist Comparison: June 09, 2020 Findings: Normal alignment of the forearm. Moderate elbow degenerative changes. Chondrocalcinosis within the elbow. Elbow joint effusion. Mild irregularity of the radial head. Healing comminuted distal radial intra-articular fracture with dorsal angulation. Ununited ulnar styloid fracture. Moderate first carpal metacarpal triscaphe DJD. Diffuse osteopenia. Impression: 1. Elbow joint effusion with irregularity of the radial head, may represent nondisplaced fracture. Recommend dedicated views of the elbow with radial head views. 2. Healing comminuted with intra-articular distal radial fracture, unchanged alignment. 3. Ununited ulnar styloid fracture, unchanged alignment. Electronically signed by: Contreras Lopez DO (06/18/2020 3:58 PM) ETHANPEPE
--- NOTE | 2020-06-18 18:12 | PN ---
DATE: SUBJECTIVE: The patient continues to be complaining of constipation. Despite digital disimpaction yesterday she could not pass any stool again yesterday and she has been very uncomfortable and in fact her heart rate went up to 130 and 135. We did actually use the viscous lidocaine and did a rectal exam and the vault was full of hard pellet stools, managed to disimpact her completely this morning. OBJECTIVE: GENERAL: When I examined her after that she was resting flat, comfortably in bed, in no apparent respiratory distress. No pallor, jaundice, cyanosis or thyromegaly. No jugular venous distention. No limb edema. VITAL SIGNS: Her heart rate was 89, blood pressure was 124/73, temperature was 97.3, respiratory rate was 16, and oxygen saturation was 94%. HEAD, EYES, EARS, NOSE AND THROAT: Showed normocephalic, atraumatic. NECK: Supple. HEART: Normal first and second heart sounds. No gallop, rub or murmur. CHEST: Clear to auscultation. No crepitation or rhonchi. ABDOMEN: Distended, soft, nontender. NEUROLOGIC: She is awake, alert, responding appropriately. All cranial nerves are intact. She moves extremities without difficulty. Her intake over the last 24 hours was 1425, no output was recorded. LABORATORY WORK: Showed a white cell count of 4300, hemoglobin 13, hematocrit 39, MCV 87, and platelet count of 189,000. Her serum sodium 144, potassium 3.7, chloride 112, bicarbonate 21, anion gap of 11, BUN 9, creatinine was 1.2, estimated GFR was 42 mL per minute. Her glucose was 89, calcium was 8. Total bilirubin, AST, ALT, alkaline phosphatase were normal. Total protein 5.6, albumin was 2.8. ASSESSMENT: 1. Generalized weakness. 2. Gastric mass near the gastric cardia and large hiatal hernia. 3. Lactic acidosis, resolved. 4. Hypokalemia, resolved. 5. Elevated troponin, trending down. 6. Fecal impaction that required disimpaction twice, actually her rectal vault is completely empty this morning. 7. She has acute kidney injury that has resolved. Her creatinine is down from 1.6 to 1.2. PLAN: To continue with all her current medication. I will consult Physical and Occupational Therapy and the patient will probably require admission to a halfway facility for rehabilitation. ALEX TERAN MD DR: ASHLYN/yong JOB#: [id number] / [id number]
[2020-06-18 18:38] VITALS: BP 141/74
[2020-06-18 18:59] VITALS: BP 147/90
[2020-06-18] MEDS: ATORVASTATIN CALCIUM 20 MG TABLET PO SCH (21:40)
[2020-06-18] MEDS: MIRTAZAPINE ODT 15 MG TAB.RAPDIS. PO SCH (21:41)
[2020-06-18 22:57] VITALS: BP 150/89
[2020-06-19] MEDS: IV NORMAL SALINE 1,000ML 1,000 ML IV SCH ×3 (01:58→17:52)
[2020-06-19 06:15] VITALS: BP 145/87
[2020-06-19 07:54] LABS: HEMATOCRIT 34.8 % (36.0-47.0); HEMOGLOBIN 11.2 g/dL (12.0-15.5); RED CELL DISTRIBUTION WIDTH 18.3 % (11.5-14.5); WHITE BLOOD COUNT 3.7 x10^3/uL (4.0-11.0)
[2020-06-19 07:56] LABS: ALBUMIN 2.1 g/dL (3.4-5.0); ALBUMIN/GLOBULIN RATIO 0.9 (1.0-1.7); CALCIUM 6.5 mg/dL (8.5-10.1); CREATININE 0.9 mg/dL (0.6-1.0); POTASSIUM 3.1 mmol/L (3.5-5.1); TOTAL BILIRUBIN 0.5 mg/dL (0.2-1.0); TOTAL PROTEIN 4.4 g/dL (6.4-8.2)
[2020-06-19] MEDS: APIXABAN 5 MG TABLET. PO SCH ×2 (09:03→20:06)
[2020-06-19] MEDS: AMIODARONE HCL 200 MG TABLET. PO SCH (09:04)
[2020-06-19] MEDS: POLYETHYLENE GLYCOL 3350 17 GM PACKET. PO SCH ×2 (09:04→20:06)
[2020-06-19] MEDS: POTASSIUM CITRATE 10 MEQ TABLET.ER PO SCH (09:05)
--- NOTE | 2020-06-19 09:53 | RAD ---
EXAM: 3 views right elbow DATE: 06/19/2020 8:00 AM INDICATION: Possible fracture on right forearm imaging. COMPARISON: No Prior FINDINGS/ IMPRESSION: 1. Small right elbow joint effusion. 2. Subtle cortical buckling at the radial head neck junction suspicious for nondisplaced fracture. Recommend correlation with patient's symptoms and follow-up imaging in 10-14 days to confirm. 3. Chondrocalcinosis of elbow. Electronically signed by: Ish Plolock MD (06/19/2020 9:50 AM) CARLITA
[2020-06-19 10:15] VITALS: BP 89/51
[2020-06-19] MEDS ORDERED: POTASSIUM CHLORIDE 20 MEQ TABLET.ER. PO ONE ×3 (13:00→17:00)
[2020-06-19 15:41] VITALS: BP 118/73
[2020-06-19] MEDS: MIRTAZAPINE ODT 15 MG TAB.RAPDIS. PO SCH (20:06)
[2020-06-19] MEDS: ATORVASTATIN CALCIUM 20 MG TABLET PO SCH (20:06)
[2020-06-19 20:44] VITALS: BP 139/74
--- NOTE | 2020-06-20 00:02 | PN ---
DATE: 06/19/2020 SUBJECTIVE: The patient is resting, slightly propped up in bed, no apparent distress, sleepy, but arousable. On questioning her, she denies any complaint. Nursing staff stated that she sat in the chair and ate her breakfast this morning. She did have another bowel movement last night. Her family wanted her to go home with home health as they are considering palliative care. PHYSICAL EXAMINATION: GENERAL: When I examined her, she was pale. No jaundice, cyanosis, lymphadenopathy or thyromegaly. No jugular venous distention. No limb edema. VITAL SIGNS: Her heart rate was 112, blood pressure was 89/52, temperature was 97.6, respiratory rate was 20 and oxygen saturation was 97% on room air. HEAD, EYES, EARS, NOSE AND THROAT: Showed normocephalic, atraumatic. NECK: Supple. HEART: Normal first and second heart sounds. No gallop, rub or murmur. CHEST: Clear to auscultation. No crepitation or rhonchi. ABDOMEN: Distended, soft, nontender. NEUROLOGIC: She is sleepy, but arousable. All cranial nerves intact. She moves extremities without difficulty. Her intake and output are incompletely recorded. LABORATORY DATA: Her lab work this morning showed a serum sodium of 144, potassium 3.1, chloride 115, bicarbonate 20, anion gap of 9, BUN 10, creatinine 0.9, estimated GFR was 59 mL per minute. Her glucose was 73, calcium was 6.5. Total bilirubin, AST, ALT, alkaline phosphatase were normal. Total protein 4.4, albumin 2.1 and her TSH was high at 14.732. Her white cell count is 3700, hemoglobin 11, hematocrit 35, MCV 87 and platelet count of 159,000. ASSESSMENT: 1. Generalized weakness. 2. Gastric mass near the gastric cardia and large hiatal hernia. 3. Lactic acid, resolved. 4. Hypokalemia, resolved. 5. Elevated troponin, trending down. 6. Fecal impaction, requiring disimpaction twice. 7. Acute kidney injury that has resolved. Her creatinine came down from 1.6 to 0.9 mg/dL. 8. Severe protein-calorie malnutrition. PLAN: My plan is to replenish potassium. Given her elevated TSH, I did start her on Synthroid 25 mcg. Hopefully tomorrow, we will repeat her labs and we will discharge her back home for palliative care. ALEX TERAN MD DR: ASHLYN/yong JOB#: [id number] / [id number]
[2020-06-20] MEDS ORDERED: LEVOTHYROXINE 25 MCG TABLET. PO SCH (06:00)
[2020-06-20 06:45] LABS: CALCIUM 8.4 mg/dL (8.5-10.1); CREATININE 1.2 mg/dL (0.6-1.0); GFR 42.3; POTASSIUM 4.9 mmol/L (3.5-5.1)
[2020-06-20 06:46] VITALS: BP 134/92
[2020-06-20] MEDS: APIXABAN 5 MG TABLET. PO SCH (08:12)
[2020-06-20] MEDS: POLYETHYLENE GLYCOL 3350 17 GM PACKET. PO SCH (08:12)
[2020-06-20] MEDS: AMIODARONE HCL 200 MG TABLET. PO SCH (08:12)
[2020-06-20] MEDS: BISACODYL TAB 5 MG TABLET.DR. PO SCH (08:12)
[2020-06-20] MEDS: POTASSIUM CITRATE 10 MEQ TABLET.ER PO SCH (08:16)
[2020-06-20 10:25] VITALS: BP 118/79
--- NOTE | 2020-06-20 15:13 | DS ---
DATE OF DISCHARGE: HOSPITAL COURSE: The patient is an 89-year-old female patient, who came to the Emergency Room with generalized weakness. She was referred by home health who reports shortness of breath and generalized weakness. The patient is seen with her daughter who stated she has shortness of breath and chest pain with exertion. She also reports that the patient has decreased appetite and increased sleepiness. She also has urinary urgency and darker urine. She was basically extensively investigated and was admitted with generalized weakness. She was found to have mild lactic acidosis and hypokalemia, both have resolved; however, she has severe constipation that required digital disimpaction twice before we managed to treat her and clear her rectum completely. During the course of investigation, she has had a CT scan of the chest, abdomen and pelvis and it showed that the patient has hiatal hernia with finding suspicious of soft tissue mass at the gastric cardia. The radiologist recommended correlation with upper GI series or direct endoscopy when clinically feasible. She has right upper lobe pulmonary nodule. The patient is considered high risk for lung cancer, optional for CT scan in 12 months. She also has an age indeterminate superior endplate compression fracture of T5 present in the setting of generalized osteopenia and finding consistent with constipation and possible stercoral colitis at the rectal vault. She also has atrial fibrillation with rapid ventricular response that has responded to treatment with digoxin as well as continuation of her diltiazem and initially the family decided to take her home with the palliative care, but then they changed their mind, they wanted to investigate this mass further and therefore a decision was made to transfer her to [facility] to consult the Gastroenterology team for possible EGD and biopsy of this mass. PHYSICAL EXAMINATION: GENERAL: When I examined her today, she was sitting comfortably in her recliner, in no apparent respiratory distress. She was pale, no jaundice, cyanosis or thyromegaly. No jugular venous distention. No lower limb edema. VITAL SIGNS: Her heart rate was 102, blood pressure 118/79, temperature was 97.9, respiratory rate 20, and oxygen saturation was 96%. HEAD, EYES, EARS, NOSE AND THROAT: Normocephalic, atraumatic. NECK: Supple. HEART: Showed normal first and second heart sounds. No gallop, rub or murmur. CHEST: Clear to auscultation. No crepitation or rhonchi. ABDOMEN: Distended, soft, nontender. No guarding or rigidity. No organomegaly. All hernial orifice intact. Bowel sounds normal. NEUROLOGIC: She is awake, alert, responding appropriately. All cranial nerves intact. She ambulates with a walker. Her intake over the last 24 hours was 630, no output was recorded. LABORATORY DATA: As of yesterday showed a white cell count of 3700, hemoglobin 11, hematocrit 34, MCV 87 and platelet count of 159,000. Serum sodium 140, potassium 4.9, chloride 110, bicarbonate 24, anion gap of 6, BUN 12, creatinine 1.2, estimated GFR was 43 mL per minute. Her glucose was 81, calcium was 8.4. Her TSH was slightly high at 14.732. Her prothrombin time, INR and aPTT were normal. Urinalysis essentially unremarkable. DISCHARGE MEDICATIONS: She was transferred to [facility] to continue on levothyroxine sodium 25 mcg once a day, mirtazapine 22.5 mg once a day, atorvastatin calcium 40 mg at bedtime, polyethylene glycol 17 grams twice a day, Colace ____ mg daily, diltiazem 240 mg daily, potassium citrate 10 mEq once a day, bisacodyl 5 mg 3 times per week, apixaban 5 mg twice a day that was put on hold, amiodarone 200 mg daily, tramadol 50 mg every 6 hours and acetaminophen 650 mg every 4 hours. FINAL DISCHARGE DIAGNOSES: 1. Generalized weakness, resolving. 2. Gastric mass near the gastric cardia with large hiatal hernia. 3. Lactic acidosis, resolved. 4. Hypokalemia, resolved. 5. Elevated troponin, trending down. 6. Fecal impaction, requiring disimpaction twice. 7. Acute kidney injury, it has resolved. Her creatinine came down from 1.6-0.9. 8. Severe protein-calorie malnutrition. The patient will be transferred to [facility]. We will consult the Gastroenterology team. ALEX TERAN MD DR: ASHLYN/yong JOB#: [id number] / [id number]
[2020-06-20 15:42] VITALS: BP 129/69
[2020-06-20 18:45] VITALS: BP 139/85
== END 2020-06-20 19:21 | disposition short-term general hospital (02) | DRG 682 ==
LOC: ER 15:56 → ICU 19:56 → ER 21:06 → 1 SOUTH 06-18 18:21
PROVIDERS: ADMIT Internal Medicine; ATTEND Internal Medicine
DX: N17.9 Acute kidney failure, unspecified (principal); E43 Unspecified severe protein-calorie malnutrition; E87.2 Acidosis; I13.0 Hypertensive heart and chronic kidney disease with heart failure and stage 1 through stage 4 chronic kidney disease, or unspecified chronic kidney disease; R53.1 Weakness; E78.00 Pure hypercholesterolemia, unspecified; E78.49 Other hyperlipidemia; E87.6 Hypokalemia; F03.90 Unspecified dementia, unspecified severity, without behavioral disturbance, psychotic disturbance, mood disturbance, and anxiety; F41.9 Anxiety disorder, unspecified; I48.91 Unspecified atrial fibrillation; I50.9 Heart failure, unspecified; K31.9 Disease of stomach and duodenum, unspecified; K44.9 Diaphragmatic hernia without obstruction or gangrene; K56.41 Fecal impaction; M19.90 Unspecified osteoarthritis, unspecified site; Z51.5 Encounter for palliative care; Z82.3 Family history of stroke; Z82.49 Family history of ischemic heart disease and other diseases of the circulatory system; Z85.038 Personal history of other malignant neoplasm of large intestine; Z85.118 Personal history of other malignant neoplasm of bronchus and lung; Z86.711 Personal history of pulmonary embolism; Z86.73 Personal history of transient ischemic attack (TIA), and cerebral infarction without residual deficits; Z90.710 Acquired absence of both cervix and uterus; Z90.49 Acquired absence of other specified parts of digestive tract; E11.22 Type 2 diabetes mellitus with diabetic chronic kidney disease; N18.9 Chronic kidney disease, unspecified
CPT/HCPCS: 36415; 70450; 71250; 72125; 73080; 73090; 73100; 74176; 80048; 80053; 81001; 82553; 83605; 83690; 83735; 83880; 84443; 84484; 85025; 85027; 85610; 85730; 90471; 90686; 93005; 96360; 99291-25; J7030

== ENCOUNTER 2020-07-26 10:55 | Emergency (ER) | payer MEDICARE ==
[~2020-07-26] VITALS: Ht 160 cm; Wt 70.0 kg
[~2020-07-26 10:55] MED LIST changes: +DOCU-109 PO
--- NOTE | 2020-07-26 11:25 | PHYS DOC ---
Past History Past Medical History: Cancer, Dementia, High Cholesterol, Hypertension, Stroke Additional Past Medical Histor: colon cancer Past Surgical History: Other Additional Past Surgical Histo: Colectomy Smoking: Non-smoker Alcohol Use: None Drug Use: None Adult General Chief Complaint Chief Complaint: RIB PAIN HPI HPI Patient is a 89-year-old female presenting with her son-in-law for left-sided chest wall pain. Onset of injury was approximately 3 weeks ago. Patient lives with other family members at home and requires assistance daily with activities of daily living, specifically with transfers. Patient was using commode and son-in-law was helping patient transfer to use her assistive walking device when she fell to the side of the commode and hit her left chest wall on sink. Patient subsequently fell back onto commode and has had ongoing left chest wall pain ever since. Patient has not had any overt respiratory distress than that time but has been tender to palpation and when laying on her left trying to slee p. Daughter is a surgical nurse and was giving patient leftover tramadol from prior wrist surgery which seems to be helping. Ongoing pain and difficulty sleeping prompted son-in-law to bring patient to our ER today for evaluation. Patient otherwise has no fever, no COVID-19 contact, no chest pain, no shortness of breath, no abdominal pain, no urinary symptoms. She has not fallen since this event, did not hit her head or lose consciousness. Review of Systems Review of Systems Fourteen body systems of review of systems have been reviewed. See HPI for pertinent positives and negative responses, other carrasco all other systems are negative, non-pertinent or non-contributory Allergies Allergies Allergies Coded Allergies Type Severity Reaction Last Updated Verified No Known Drug Allergies 07/26/20 No Physical Exam Physical Exam Constitutional: Pt is oriented to person, place, and time. Pt appears well-developed and well- nourished. HEENT: Head: Normocephalic and atraumatic. TMs clear, no hemotympanum Conjunctivae and EOM are normal. Pupils are equal, round, and reactive to light. Oropharynx is clear and moist. No hematomas or lacerations or abrasions to face or scalp OP clear, no blood, no malocclusion, dentition intact Nares clear, no nasal septal hematoma Midface stable Neck: C-spine midline nontender, no step-offs Cardiovascular: Normal rate, regular rhythm and normal heart sounds. Pulmonary/Chest: Effort normal and breath sounds normal. No respiratory distress. No wheezes. CTA bilaterally Abdominal: Soft. Bowel sounds are normal. Pt exhibits no distension. There is no tenderness. Musculoskeletal: No bony tenderness to extremities, no deformities, full ROM extremities Chest wall stable, tenderness to left ribs without any visual and/or palpable abnormalities, no flail chest Pelvis stable and non-tender No vertebral TTP and spine without stepoffs Neurological: Pt is alert and oriented to person, place, and time. Moving all extremities willfully, able to wiggle all fingers and toes Alert and oriented x 3 Sensation grossly intact Skin: Skin is warm and dry. No abrasions, no lacerations Psychiatric: Behavior is appropriate for situation Current Patient Data Vital Signs Vital Signs Date Time Temp Pulse Resp B/P (MAP) Pulse Ox O2 Delivery O2 Flow Rate FiO2 07/26/20 11:00 97.6 88 20 165/67 (99) 94 Room Air EKG EKG [] Radiology/Procedures Radiology/Procedures Left rib series to include an AP chest radiograph 07/26/2020 CLINICAL HISTORY: Fall with left-sided chest and rib pain. An AP digital radiograph of the chest was obtained. Two AP and and an oblique digital radiographs of the left ribs were obtained. Comparison study is dated 04/04/2020. The cardiac silhouette is mildly enlarged. The thoracic aorta is tortuous. Atherosclerotic calcification of the thoracic aorta is seen. Mild elevation of the right hemidiaphragm is noted. No acute pulmonary infiltrate is seen. No pleural effusion or pneumothorax is noted. There is diffuse osteopenia of the visualized bony structures. Degenerative changes are seen involving the thoracic spine along with both shoulders. The osseous structures are grossly intact. Specifically no left-sided rib fracture is seen. IMPRESSION: No left-sided rib fracture is seen. Electronically signed by: Mg Persaud MD (07/26/2020 2:04 PM) [id number] Heart Score HEART Score for Chest Pain: HEART Score for Chest Pain Response (Comments) Value History Slighlty/Non-Suspicious 0 Age > 65 2 Risk Factors >3 Risk Factors or Hx CAD 2 Total 4 Risk Factors: Risk Factors: DM, Current or recent (<one month) smoker, HTN, HLP, family history of CAD, obesity. Risk Scores: Risk Factors: DM, Current or recent (<one month) smoker, HTN, HLP, family history of CAD, obesity. Course & Med Decision Making Course & Med Decision Making Pertinent Labs and Imaging studies reviewed. (See chart for details) Discussed most likely dx contusion vs other musculoskeletal diagnosis that is self-limiting in nature Discussed need for ongoing supportive care and PCP follow-up in outpatient setting SRP discussed with understanding by patient and son-in-law present, all questions and concerns addressed prior to departure Dragon Disclaimer Dragon Disclaimer This electronic medical record was generated, in whole or in part, using a voice recognition dictation system. Departure Departure: Impression: Primary Impression: Chest wall contusion Disposition: 01 DC HOME SELF CARE/HOMELESS Condition: STABLE Referrals: FREDIS MCCARTY MD (PCP) Patient Instructions: Chest Contusion Additional Instructions: You were evaluated in the Emergency Department today for back pain. Your evaluation suggests no acute abnormalities which require further intervention at this time. Your pain is most likely due to to a musculoskeletal cause that should improve with supportive care. - Move around as tolerated but avoiding heavy lifting. ``Bed rest is not recommended nor is it the best treatment for low back pain. - Medications will help control your discomfort: - -Ibuprofen (800 mg every 8 hours for pain) with food. - -Tylenol - Do not drink alcohol, drive a car, operate machinery, or get up on ladders or heights when taking any prescribed pain medications. - Do not drive home if you received prescribed pain medications here in the ED. Return to the ED immediately if you develop any of the following problems: - Leaking urine or difficulty urinating; - Inability to control your bowels; - New numbness or weakness in your legs or numbness between your legs; - Inability to walk - Fever MARANDA STORY DO Jul 26, 2020 11:25
[2020-07-26] MEDS ORDERED: ACETAMINOPHEN 325 MG TABLET PO ONE (11:30)
[2020-07-26 12:00] VITALS: BP 159/89
--- NOTE | 2020-07-26 14:06 | RAD ---
Left rib series to include an AP chest radiograph 07/26/2020 CLINICAL HISTORY: Fall with left-sided chest and rib pain. An AP digital radiograph of the chest was obtained. Two AP and and an oblique digital radiographs of the left ribs were obtained. Comparison study is dated 04/04/2020. The cardiac silhouette is mildly en larged. The thoracic aorta is tortuous. Atherosclerotic calcification of the thoracic aorta is seen. Mild elevation of the right hemidiaphragm is noted. No acute pulmonary infiltrate is seen. No pleural effusion or pneumothorax is noted. There is diffuse osteopenia of the visualized bony structures. De generative changes are seen involving the thoracic spine along with both shoulders. The osseous struc tures are grossly intact. Specifically no left-sided rib fracture is seen. IMPRESSION: No left-sided rib fracture is seen. Electronically signed by: Mg Persaud MD (07/26/2020 2:04 PM) [place] [id number]
== END 2020-07-26 14:30 | disposition home or self-care (01) ==
LOC: ER 10:55
DX: S20.212A Contusion of left front wall of thorax, initial encounter (principal); F03.90 Unspecified dementia, unspecified severity, without behavioral disturbance, psychotic disturbance, mood disturbance, and anxiety; E78.00 Pure hypercholesterolemia, unspecified; I10 Essential (primary) hypertension; Z86.73 Personal history of transient ischemic attack (TIA), and cerebral infarction without residual deficits; W18.09XA Striking against other object with subsequent fall, initial encounter; Y93.89 Activity, other specified; Y92.89 Other specified places as the place of occurrence of the external cause; Y99.8 Other external cause status
CPT/HCPCS: 71101; 99284

== ENCOUNTER 2020-07-30 16:16 | Emergency (ER) | payer MEDICARE ==
[~2020-07-30] VITALS: Ht 160 cm; Wt 67.7 kg
[2020-07-30 16:16] VITALS: BP 140/74
--- NOTE | 2020-07-30 16:23 | PHYS DOC ---
Past History Past Medical History: Cancer, Dementia, High Cholesterol, Hypertension, Stroke Additional Past Medical Histor: colon cancer Past Surgical History: Other Additional Past Surgical Histo: Colectomy Smoking: Non-smoker Alcohol Use: None Drug Use: None General Adult EDM: Chief Complaint: MECHANICAL FALL HPI: HPI: History gained from EMS. Patient is an 89-year-old female with history of atrial fibrillation who presents with chief complaint of fall. EMS states just prior to arrival the patient experienced a nonsyncopal fall. They states she ambulates with a walker at baseline. The patient was attempting to exit her bathroom. She was attempting also the door when she lost her cut off sawyer on her walker and fell to the ground. She does have history of dementia and is confused at baseline. Lives at home with son and daughter. Does take Eliquis daily for atrial fibrillation. Per EMS the patient did have a regular rate in route. Patient was complaining of some low back pain per EMS. She states that her pain is aching in nature. She denies any symptoms prior to her falling. No other complaints. Review of Systems: Review of Systems: Constitutional: Denies fever or chills Eyes: Denies change in visual acuity HENT: Denies nasal congestion or sore throat Respiratory: Denies cough or shortness of breath Cardiovascular: Denies chest pain or edema GI: Denies abdominal pain, nausea, vomiting, bloody stools or diarrhea : Denies dysuria Musculoskeletal: Positive for fall low back pain Integument: Denies rash Neurologic: Denies headache, focal weakness or sensory changes Endocrine: Denies polyuria or polydipsia Lymphatic: Denies swollen glands Psychiatric: Denies depression or anxiety Allergies: Allergies: Allergies Coded Allergies Type Severity Reaction Last Updated Verified No Known Drug Allergies 07/26/20 No Physical Exam: PE: Physical Exam Trauma: Primary Survey: Airway: Intact. Speaks in normal voice and phonation. Breathing: Breath sounds are clear and equal bilaterally. Circulation: Regular rhythm, 2+ and symmetric radial, DP and PT pulses. Disability: GCS on arrival was ([id number] (baseline). Pupils 3 mm, ERRL Exposure: Complete exposure obtained and described in detail below. Secondary Survey: General: Awake, alert, appropriate, and in no acute distress HENT: Atraumatic. TMs clear bilaterally, no hemotympanum. No periorbital tenderness or deformity. No obvious craniofacial trauma. Midface is stable. No apparent dental or tongue/oropharyngeal injury. No septal hematoma. Neck: C-spine: no midline tenderness. Without step-off, deformity, abrasion, ecchymosis, or other signs of trauma. Paraspinal musculature with no tenderness and/or hypertonicity. Eyes: Pupils 3 mm ERRL, EOMI grossly, no evidence of ocular trauma, conjunctivae normal Respiratory: CTAB without wheezing, rhonchi, or rales. No distress. Chest wall with no tenderness to palpation. No crepitus, ecchymosis, or flail segment present. Cardiovascular: Regular rhythm without murmurs noted. 2+ and symmetric radial, DP and PT pulses. GI: Soft, non-tender, non-distended Musculoskeletal: T-spine: no midline tenderness. Without step-off, deformity, abrasion, ecchymosis, or other signs of trauma. Paraspinal musculature with no tenderness and/or hypertonicity. L-spine: no midline tenderness. Without step-off, deformity, abrasion, ecchymosis, or other signs of trauma. Paraspinal musculature with no tenderness and/or hypertonicity. RUE: Active ROM, no obvious deformity, no gross weakness or sensory deficits, warm & well-perfused LUE: Active ROM, no obvious deformity, no gross weakness or sensory deficits, warm & well-perfused RLE: Active ROM, no obvious deformity, no gross weakness or sensory deficits, warm & well-perfused LLE: Active ROM, no obvious deformity, no gross weakness or sensory deficits, warm & well-perfused Integument: Without abrasions, contusions, or lacerations. Neurologic: GCS on arrival as noted above. No obvious focal motor or sensory deficits on examination. Gait not assessed due to acuity of trauma assessment. Current Patient Data: Labs: Laboratory Tests Test 07/30/20 16:32 Prothrombin Time 11.3 SEC Prothromb Time International Ratio 1.1 Vital Signs: Vital Signs Date Time Temp Pulse Resp B/P (MAP) Pulse Ox O2 Delivery O2 Flow Rate FiO2 07/30/20 16:16 98.0 78 16 140/74 (96) 92 Room Air EKG: EKG: [] Radiology/Procedures: Radiology/Procedures: [address] [address] IMAGING REPORT Signed PATIENT: SENAIT LEE ACCOUNT: [id number] : 1930 LOCATION: ER AGE: 89 SEX: F EXAM STATUS: REG ER ORD. PHYSICIAN: CHINTAN SEXTON DO REASON: Fall on eliquis, hip and pelvis pain PROCEDURE: HIP BILATERAL WITH PELVIS Exam: Pelvis with bilateral hips 2 views INDICATION: Fall on blood thinner. TECHNIQUE: Frontal view of pelvis with frontal and frog-leg lateral views of the bilateral hips Comparisons: None FINDINGS: Diffuse osteopenia. No acute or healed fractures are identified. There is severe degenerative change at the left hip joint. Moderate degenerative change at the right hip joint. Pubic symphysis and sacroiliac joints appear well-maintained. Soft tissues are unremarkable. IMPRESSION: Diffuse osteopenia without displaced fracture identified. If the patient is acutely unable to bear weight MRI to rule out an occult hip fracture is recommended. Electronically signed by: Vickey Wild MD (07/30/2020 5:45 PM) [facility] DICTATED AND SIGNED BY: VICKEY WILD MD DATE: 07/30/201742 CC: FREDIS MCCARTY MD; CHINTAN SEXTON DO ~[facility]0 [address] [id number] IMAGING REPORT Signed PATIENT: SENAIT LEE ACCOUNT: [id number] : 1930 LOCATION: ER AGE: 89 SEX: F EXAM STATUS: REG ER ORD. PHYSICIAN: CHINTAN SEXTON DO REASON: R shoulder pain s/p fall PROCEDURE: SHOULDER 2+V RIGHT Exam: Right shoulder 2 views INDICATION: Right shoulder pain after fall TECHNIQUE: Frontal view of the right shoulder with internal and external rotation and transscapular Y views Comparisons: None FINDINGS: Bone mineralization is normal. No acute or healed fractures. Soft tissues are unremarkable. Joint spaces are well-maintained. IMPRESSION: No acute osseous abnormality. Electronically signed by: Vickey Wild MD (07/30/2020 5:50 PM) [facility] DICTATED AND SIGNED BY: VICKEY WILD MD DATE: 07/30/20 1747 CC: FREDIS MCCARTY MD; CHINTAN SEXTON DO ~[facility]0 [address] [address] IMAGING REPORT Signed PATIENT: SENAIT LEE ACCOUNT: [id number] : 1930 LOCATION: ER AGE: 89 SEX: F EXAM STATUS: REG ER ORD. PHYSICIAN: CHINTAN SEXTON DO REASON: Fall on eliquis, abdomen and chest tenderness PROCEDURE: CT CHEST ABDOMEN PELVIS WO CT scan of the chest, abdomen and pelvis without contrast to include a CT scan of the thoracic and lumbar spine 07/30/2020 CLINICAL HISTORY: Fall. The patient is on anticoagulant therapy. Chest, abdominal and pelvic tenderness. Mid and low back pain. TECHNIQUE: After the intravenous administration of 75 cc of Omnipaque 300 only, contiguous, 0.625 mm axial sections were obtained through the chest abdomen and pelvis. 5 mm reconstructed sagittal, coronal and axial images of the chest abdomen and pelvis were obtained. Additionally 3 mm reconstructed sagittal, axial and coronal images of the thoracic and lumbar spine were obtained. One or more of the following individualized dose reduction techniques were utilized for this study: 1. Automated exposure control. 2. Adjustment of the mA and/or kV according to patient size. 3. Use of iterative reconstruction technique. FINDINGS: Comparison study is dated 06/16/2020. No mediastinal hematoma is seen. Atherosclerotic calcification of the thoracic aorta and its branches is noted. Mild to moderate cardiomegaly. Mitral annular calcifications are again noted. Small calcified right hilar lymph nodes are seen. Small calcified granulomas are seen involving the right lung. A 4 mm nodular opacity is seen involving the right upper lobe, unchanged. There is subsegmental atelectasis is seen bilaterally. No area of consolidation is seen. No pneumothorax or pleural effusion is noted. The liver, spleen, pancreas, and adrenal glands are within normal limits. Rounded low-attenuation lesions are seen involving both kidneys which measure 5 mm to 4.6 cm in size. These likely represent cysts. No further evaluation is recommended. Atherosclerotic calcification of the abdominal aorta and its branches is noted. The abdominal aorta tapers normally. The gallbladder is well-distended. The possible mass is seen in the region of the gastric cardia is better visualized on the patient's previous recent CT scan. No free fluid or free air is seen within the abdomen. There is no evidence of bowel obstruction. Air and stool and residual contrast are seen throughout the colon. Images through the pelvis demonstrate the urinary bladder distended with urine. No free fluid is seen. No pelvic hematoma is seen. Postsurgical changes are seen involving lower anterior abdominal wall. The osseous structures of the chest, abdomen and pelvis are intact. Sagittal and coronal reconstructed images of the thoracic and lumbar spine demonstrate mild S-shaped curvature of the thoracolumbar spine. The patient is post laminectomy at L4-5 and L5-S1. Degenerative changes are seen throughout the thoracic and lumbar disc spaces consisting of varying degrees of disc space narrowing, vertebral endplate sclerosis and mild to moderate anterior vertebral body osteophyte formation. An old appearing compression fracture of the T5 vertebral body is again noted. No acute fracture or subluxation of the thoracic or lumbar vertebrae seen. IMPRESSION: No acute abnormality is seen. Electronically signed by: Mg Persaud MD (07/30/2020 5:18 PM) [id number] DICTATED AND SIGNED BY: MG PERSAUD MD DATE: 07/30/201706 CC: FREDIS MCCARTY MD; CHINTAN SEXTON DO ~[facility]0 [address] [place] [address] IMAGING REPORT Signed PATIENT: SENAIT LEE ACCOUNT: [id number] : 1930 LOCATION: ER AGE: 89 SEX: F EXAM STATUS: REG ER ORD. PHYSICIAN: CHINTAN SEXTON DO REASON: Fall on eliquis, headache, neck soreness PROCEDURE: CT HEAD AND CERVICAL SPINE WO CT scan of the head without contrast 07/30/2020 Clinical History: Fall with head injury. Technique: Unenhanced, contiguous, 5 mm axial sections were obtained through the head. One or more of the following individualized dose reduction techniques were utilized for this study: 1. Automated exposure control. 2. Adjustment of the mA and/or kV according to patient size. 3. Use of iterative reconstruction technique. Findings: Comparison study is dated 06/16/2020 . There is generalized parenchymal atrophy. Areas of decreased attenuation are seen within the periventricular and subcortical white matter of both cerebral hemispheres consistent with areas of small vessel ischemic disease. No acute parenchymal abnormality is seen. No extra-axial fluid collection is noted. No skull fracture is seen. Impression: No acute intracranial abnormality is seen. CT scan of the cervical spine without contrast 07/30/2020 Clinical history: Fall with neck injury. Technique: Unenhanced, contiguous, 0.625 mm axial sections were obtained through the cervical spine. Axial, coronal and sagittal reconstructed images were obtained. One or more of the following individualized dose reduction techniques were u tilized for this study: 1. Automated exposure control. 2. Adjustment of the mA and/or kV according to patient size. 3. Use of iterative reconstruction technique. Findings: Sagittal and coronal reconstructed images demonstrate straightening of the normal cervical lordosis. Degenerative changes consisting of disc space narrowing, vertebral endplate sclerosis and mild anterior and posterior vertebral body osteophyte formation are seen involving the C5-6 discs. Degenerative changes are seen involving the uncovertebral and facet joints throughout the cervical disc spaces. No fracture or subluxation cervical vertebrae is seen. Degenerative changes are seen involving the uncovertebral and facet joints throughout the cervical disc spaces. Moderate atherosclerotic calcification is seen in the region carotid bifurcations. Impression: No fracture or subluxation of the cervical vertebra is identified. Electronically signed by: Mg Persaud MD (07/30/2020 5:07 PM) [id number] DICTATED AND SIGNED BY: MG PERSAUD MD DATE: 07/30/201701 CC: FREDIS MCCARTY MD; CHINTAN SEXTON DO ~[facility]0 [address] [place] [address] IMAGING REPORT Signed PATIENT: SENAIT LEE ACCOUNT: [id number] : 1930 LOCATION: ER AGE: 89 SEX: F EXAM STATUS: REG ER ORD. PHYSICIAN: CHINTAN SEXTON DO REASON: Fall on eliquis, upper and lower back pain PROCEDURE: CT THORACIC SPINE WO CONTRAST CT scan of the chest, abdomen and pelvis without contrast to include a CT scan of the thoracic and lumbar spine 07/30/2020 CLINICAL HISTORY: Fall. The patient is on anticoagulant therapy. Chest, abdominal and pelvic tenderness. Mid and low back pain. TECHNIQUE: After the intravenous administration of 75 cc of Omnipaque 300 only, contiguous, 0.625 mm axial sections were obtained through the chest abdomen and pelvis. 5 mm reconstructed sagittal, coronal and axial images of the chest abdomen and pelvis were obtained. Additionally 3 mm reconstructed sagittal, axial and coronal images of the thoracic and lumbar spine were obtained. One or more of the following individualized dose reduction techniques were utilized for this study: 1. Automated exposure control. 2. Adjustment of the mA and/or kV according to patient size. 3. Use of iterative reconstruction technique. FINDINGS: Comparison study is dated 06/16/2020. No mediastinal hematoma is seen. Atherosclerotic calcification of the thoracic aorta and its branches is noted. Mild to moderate cardiomegaly. Mitral annular calcifications are again noted. Small calcified right hilar lymph nodes are seen. Small calcified granulomas are seen involving the right lung. A 4 mm nodular opacity is seen involving the right upper lobe, unchanged. There is subsegmental atelectasis is seen bilaterally. No area of consolidation is seen. No pneumothorax or pleural effusion is noted. The liver, spleen, pancreas, and adrenal glands are within normal limits. Rounded low-attenuation lesions are seen involving both kidneys which measure 5 mm to 4.6 cm in size. These likely represent cysts. No further evaluation is recommended. Atherosclerotic calcification of the abdominal aorta and its branches is noted. The abdominal aorta tapers normally. The gallbladder is well-distended. The possible mass is seen in the region of the gastric cardia is better visualized on the patient's previous recent CT scan. No free fluid or free air is seen within the abdomen. There is no evidence of bowel obstruction. Air and stool and residual contrast are seen throughout the colon. Images through the pelvis demonstrate the urinary bladder distended with urine. No free fluid is seen. No pelvic hematoma is seen. Postsurgical changes are seen involving lower anterior abdominal wall. The osseous structures of the chest, abdomen and pelvis are intact. Sagittal and coronal reconstructed images of the thoracic and lumbar spine demonstrate mild S-shaped curvature of the thoracolumbar spine. The patient is post laminectomy at L4-5 and L5-S1. Degenerative changes are seen throughout the thoracic and lumbar disc spaces consisting of varying degrees of disc space narrowing, vertebral endplate sclerosis and mild to moderate anterior vertebral body osteophyte formation. An old appearing compression fracture of the T5 vertebral body is again noted. No acute fracture or subluxation of the thoracic or lumbar vertebrae seen. IMPRESSION: No acute abnormality is seen. Electronically signed by: Mg Persaud MD (07/30/2020 5:18 PM) [id number] DICTATED AND SIGNED BY: MG PERSAUD MD DATE: 07/30/201706 CC: FREDIS MCCARTY MD; CHINTAN SEXTON DO ~[facility]0 0 [] Heart Score: Risk Factors: Risk Factors: DM, Current or recent (<one month) smoker, HTN, HLP, family history of CAD, obesity. Risk Scores: Score 0 - 3: 2.5% MACE over next 6 weeks - Discharge Home Score 4 - 6: 20.3% MACE over next 6 weeks - Admit for Clinical Observation Score 7 - 10: 72.7% MACE over next 6 weeks - Early Invasive Strategies Course & Med Decision Making: Course & Med Decision Making Pertinent Labs and Imaging studies reviewed. (See chart for details) [] Patient is a 89-year-old female who presents with chief complaint of nonsyncopal fall prior to arrival. She does ambulate at baseline with the assistance of a walker. Advanced CT imaging of the head, cervical, thoracic, lumbar spines, chest abdomen pelvis have all been negative for acute traumatic abnormality. Plain films also negative for acute osseous abnormality. Daughter at bedside does feel comfortable taking the patient home for close monitoring. Daughter does corroborate this with nonsyncopal fall. Strict return precautions were discussed and understood by the patient and daughter. Instructed to follow-up with her PCP in the next 2 to 3 days. Stable for discharge home. Dragon Disclaimer: José Disclaimer: This electronic medical record was generated, in whole or in part, using a voice recognition dictation system. Departure Departure: Impression: Primary Impression: Fall Qualified Codes: W19.XXXA - Unspecified fall, initial encounter Disposition: 01 DC HOME SELF CARE/HOMELESS Condition: STABLE Referrals: FREDIS MCCARTY MD (PCP) Patient Instructions: Fall Prevention and Home Safety Additional Instructions: Please follow-up with your primary care physician in the next 2 to 3 days. CHINTAN SEXTON DO Jul 30, 2020 16:23
--- NOTE | 2020-07-30 17:09 | RAD ---
CT scan of the head without contrast 07/30/2020 Clinical History: Fall with head injury. Technique: Unenhanced, contiguous, 5 mm axial sections were obtained through the head. One or more of the following individualized dose reduction techniques were utilized for this study: 1. Automated exposure control. 2. Adjustment of the mA and/or kV according to patient size. 3. Use of iterative reconstruction technique. Findings: Comparison study is dated 06/16/2020 . There is generalized parenchymal atrophy. Areas of decreased attenuation are seen within the perivent ricular and subcortical white matter of both cerebral hemispheres consistent with areas of small vess el ischemic disease. No acute parenchymal abnormality is seen. No extra-axial fluid collection is not ed. No skull fracture is seen. Impression: No acute intracranial abnormality is seen. CT scan of the cervical spine without contrast 07/30/2020 Clinical history: Fall with neck injury. Technique: Unenhanced, contiguous, 0.625 mm axial sections were obtained through the cervical spine. Axial, coronal and sagittal reconstructed images were obtained. One or more of the following individualized dose reduction techniques were utilized for this study: 1. Automated exposure control. 2. Adjustment of the mA and/or kV according to patient size. 3. Use of iterative reconstruction technique. Findings: Sagittal and coronal reconstructed images demonstrate straightening of the normal cervical lordosis. Degenerative changes consisting of disc space narrowing, vertebral endplate sclerosis and m ild anterior and posterior vertebral body osteophyte formation are seen involving the C5-6 discs. Deg enerative changes are seen involving the uncovertebral and facet joints throughout the cervical disc spaces. No fracture or subluxation cervical vertebrae is seen. Degenerative changes are seen involving the un covertebral and facet joints throughout the cervical disc spaces. Moderate atherosclerotic calcificat ion is seen in the region carotid bifurcations. Impression: No fracture or subluxation of the cervical vertebra is identified. Electronically signed by: Mg Persaud MD (07/30/2020 5:07 PM) [id number]
--- NOTE | 2020-07-30 17:21 | RAD ---
CT scan of the chest, abdomen and pelvis without contrast to include a CT scan of the thoracic and chivo mbar spine 07/30/2020 CLINICAL HISTORY: Fall. The patient is on anticoagulant therapy. Chest, abdominal and pelvic tenderne ss. Mid and low back pain. TECHNIQUE: After the intravenous administration of 75 cc of Omnipaque 300 only, contiguous, 0.625 mm axial sections were obtained through the chest abdomen and pelvis. 5 mm reconstructed sagittal, coron al and axial images of the chest abdomen and pelvis were obtained. Additionally 3 mm reconstructed sa gittal, axial and coronal images of the thoracic and lumbar spine were obtained. One or more of the following individualized dose reduction techniques were utilized for this study: 1. Automated exposure control. 2. Adjustment of the mA and/or kV according to patient size. 3. Use of iterative reconstruction technique. FINDINGS: Comparison study is dated 06/16/2020. No mediastinal hematoma is seen. Atherosclerotic calcification of the thoracic aorta and its branches is noted. Mild to moderate cardiomegaly. Mitral annular calcifications are again noted. Small calcif ied right hilar lymph nodes are seen. Small calcified granulomas are seen involving the right lung. A 4 mm nodular opacity is seen involvin g the right upper lobe, unchanged. There is subsegmental atelectasis is seen bilaterally. No area of consolidation is seen. No pneumothorax or pleural effusion is noted. The liver, spleen, pancreas, and adrenal glands are within normal limits. Rounded low-attenuation les ions are seen involving both kidneys which measure 5 mm to 4.6 cm in size. These likely represent cys ts. No further evaluation is recommended. Atherosclerotic calcification of the abdominal aorta and its branches is noted. The abdominal aorta t apers normally. The gallbladder is well-distended. The possible mass is seen in the region of the gas tric cardia is better visualized on the patient's previous recent CT scan. No free fluid or free air is seen within the abdomen. There is no evidence of bowel obstruction. Air and stool and residual con trast are seen throughout the colon. Images through the pelvis demonstrate the urinary bladder distended with urine. No free fluid is seen . No pelvic hematoma is seen. Postsurgical changes are seen involving lower anterior abdominal wall. The osseous structures of the chest, abdomen and pelvis are intact. Sagittal and coronal reconstructed images of the thoracic and lumbar spine demonstrate mild S-shaped curvature of the thoracolumbar spine. The patient is post laminectomy at L4-5 and L5-S1. Degenerative changes are seen throughout the thoracic and lumbar disc spaces consisting of varying degrees of dis c space narrowing, vertebral endplate sclerosis and mild to moderate anterior vertebral body osteophy te formation. An old appearing compression fracture of the T5 vertebral body is again noted. No acute fracture or subluxation of the thoracic or lumbar vertebrae seen. IMPRESSION: No acute abnormality is seen. Electronically signed by: Mg Persaud MD (07/30/2020 5:18 PM) [id number]
--- NOTE | 2020-07-30 17:48 | RAD ---
Exam: Pelvis with bilateral hips 2 views INDICATION: Fall on blood thinner. TECHNIQUE: Frontal view of pelvis with frontal and frog-leg lateral views of the bilateral hips Comparisons: None FINDINGS: Diffuse osteopenia. No acute or healed fractures are identified. There is severe degenerative change at the left hip joint. Moderate degenerative change at the right hip joint. Pubic symphysis and sacro iliac joints appear well-maintained. Soft tissues are unremarkable. IMPRESSION: Diffuse osteopenia without displaced fracture identified. If the patient is acutely unable to bear we ight MRI to rule out an occult hip fracture is recommended. Electronically signed by: Vickey Leroy MD (07/30/2020 5:45 PM) [facility]
--- NOTE | 2020-07-30 17:53 | RAD ---
Exam: Right shoulder 2 views INDICATION: Right shoulder pain after fall TECHNIQUE: Frontal view of the right shoulder with internal and external rotation and transscapular Y views Comparisons: None FINDINGS: Bone mineralization is normal. No acute or healed fractures. Soft tissues are unremarkable. Joint spa kary are well-maintained. IMPRESSION: No acute osseous abnormality. Electronically signed by: Vickey Leroy MD (07/30/2020 5:50 PM) [facility]
== END 2020-07-30 18:08 | disposition home or self-care (01) ==
LOC: ER 16:16
DX: G89.11 Acute pain due to trauma (principal); M54.5 Low back pain; M25.511 Pain in right shoulder; M25.552 Pain in left hip; M25.551 Pain in right hip; R41.0 Disorientation, unspecified; F03.90 Unspecified dementia, unspecified severity, without behavioral disturbance, psychotic disturbance, mood disturbance, and anxiety; E78.00 Pure hypercholesterolemia, unspecified; I48.20 Chronic atrial fibrillation, unspecified; I10 Essential (primary) hypertension; I25.2 Old myocardial infarction; Z85.9 Personal history of malignant neoplasm, unspecified; Z90.89 Acquired absence of other organs; Z98.890 Other specified postprocedural states; W18.39XA Other fall on same level, initial encounter; Y93.89 Activity, other specified; Y92.89 Other specified places as the place of occurrence of the external cause; Y99.8 Other external cause status
CPT/HCPCS: 36415; 70450; 71250; 72125; 72128; 72131; 73030; 73521; 74176; 85610; 99285

== ENCOUNTER 2020-08-02 15:51 | Emergency (ER) | payer MEDICARE ==
[~2020-08-02] VITALS: Ht 152.4 cm; Wt 61.0 kg
--- NOTE | 2020-08-02 16:53 | RAD ---
Abdomen one view. HISTORY: Constipation There is moderate stool in the colon and rectum. There is no small bowel obstruction. There are delacruz es from previous surgery. There is mild scoliosis and degenerative change in the lumbar spine. IMPRESSION: 1. Retained stool and contrast in the colon. 2. No small bowel obstruction. Electronically signed by: Allen Darby MD (08/02/2020 4:50 PM) [facility]
[2020-08-02] MEDS ORDERED: MINERAL OIL 133 ML ENEMA. PR ONE (17:00)
[2020-08-02] MEDS ORDERED: BISACODYL 10 MG SUPP.RECT PR ONE (17:00)
[2020-08-02] MEDS ORDERED: LIDOCAINE 2% JELLY 10ML IN APPLICATOR. MM ONE (17:00)
[2020-08-02] MEDS ORDERED: GLYCERIN ADULT 1 SUPP.RECT. PR ONE (17:00)
--- NOTE | 2020-08-02 17:11 | PHYS DOC ---
Past History Past Medical History: CAD, Cancer, CVA, High Cholesterol, Hypertension, AL Additional Past Medical Histor: colon cancer Past Surgical History: Hysterectomy, Other Additional Past Surgical Histo: colectomy X 2 Smoking: Non-smoker Alcohol Use: None Drug Use: None Adult General Chief Complaint Chief Complaint: CONSTIPATION HPI HPI Patient is a 89-year-old female with chronic constipation who presents for constipation. This is an acute on chronic problem. Patient has history of GI cancer with subsequent colon resection and reanastomosis in 1993, she has suffered from constipation ever since. She has been taking her typical daily M iraLAX and Dulcolax every other day regiment since then with moderate relief in symptoms. Nonetheless, she is here with sister today he reports last normal bowel movement was approximately 3 weeks ago. States patient has had poor p.o. food and fluid intake and " she does not make the right food choices", has a diet extremely poor in fiber. Patient's other sister who assumes full care of patient attempted to manually disimpact patient but this was too painful. Case was discussed with her GI physician who advised she come in for formal evaluation Review of Systems Review of Systems Fourteen body systems of review of systems have been reviewed. See HPI for pertinent positives and negative responses, other carrasco all other systems are negative, non-pertinent or non-contributory Allergies Allergies Allergies Coded Allergies Type Severity Reaction Last Updated Verified No Known Drug Allergies 08/02/20 No Physical Exam Physical Exam Constitutional: Pt is oriented to person, place, and time. Pt appears well-developed and well- nourished. HEENT: Head: Normocephalic and atraumatic. External ears unremarkable Conjunctivae and EOM are normal. Pupils are equal, round, and reactive to light. Oropharynx is clear and moist. No hematomas or lacerations or abrasions to face or scalp OP clear, no blood, no malocclusion, dentition intact Nares clear, no nasal septal hematoma Midface stable Neck: C-spine midline nontender, no step-offs Cardiovascular: Normal rate, regular rhythm and normal heart sounds. Pulmonary/Chest: Effort normal and breath sounds normal. No respiratory distress. No wheezes. CTA bilaterally Abdominal: Soft. Bowel sounds are normal. Pt exhibits no distension. There is no tenderness. Nonacute abdomen Rectal exam performed, numerous external hemorrhoids none of which were thrombosed, palpable stool in rectal vault, patient manually disimpacted Musculoskeletal: No bony tenderness to extremities, no deformities, full ROM extremities Chest wall stable Pelvis stable and non-tender No vertebral TTP and spine without stepoffs Neurological: Pt is alert and oriented to person, place, and time. Moving all extremities willfully, able to wiggle all fingers and toes Alert and oriented x 3 Sensation grossly intact Skin: Skin is warm and dry. No abrasions, no lacerations Psychiatric: Behavior is appropriate for situation Current Patient Data Vital Signs Vital Signs Date Time Temp Pulse Resp B/P (MAP) Pulse Ox O2 Delivery O2 Flow Rate FiO2 08/02/20 16:00 97.7 98 18 148/95 (112) 95 Room Air EKG EKG [] Radiology/Procedures Radiology/Procedures Abdomen one view. HISTORY: Constipation There is moderate stool in the colon and rectum. There is no small bowel obstruction. There are changes from previous surgery. There is mild scoliosis and degenerative change in the lumbar spine. IMPRESSION: 1. Retained stool and contrast in the colon. 2. No small bowel obstruction. Electronically signed by: Allen Darby MD (08/02/2020 4:50 PM) [facility] Heart Score Risk Factors: Risk Factors: DM, Current or recent (<one month) smoker, HTN, HLP, family history of CAD, obesity. Risk Scores: Risk Factors: DM, Current or recent (<one month) smoker, HTN, HLP, family history of CAD, obesity. Course & Med Decision Making Course & Med Decision Making Pertinent Labs and Imaging studies reviewed. (See chart for details) No obstruction. Patient suffering from constipation. Manually disimpacted, patient receiving enema at time of my shift's end. Comprehensive signout given to oncoming physician, Dr. Johnson. Please refer to her dictation for further narrative of patient's care while in our ER Dragon Disclaimer Dragon Disclaimer This electronic medical record was generated, in whole or in part, using a voice recognition dictation system. Departure Departure: Impression: Primary Impression: Constipation Disposition: 01 DC HOME SELF CARE/HOMELESS Condition: IMPROVED Referrals: FREDIS MCCARTY MD (PCP) MARANDA STORY DO Aug 02, 2020 17:11
[2020-08-02 18:35] VITALS: BP 116/71
== END 2020-08-02 19:30 | disposition home or self-care (01) ==
LOC: ER 15:51
DX: K59.00 Constipation, unspecified (principal); E78.00 Pure hypercholesterolemia, unspecified; I10 Essential (primary) hypertension; I25.10 Atherosclerotic heart disease of native coronary artery without angina pectoris; Z86.73 Personal history of transient ischemic attack (TIA), and cerebral infarction without residual deficits; I25.2 Old myocardial infarction; Z90.49 Acquired absence of other specified parts of digestive tract; Z90.710 Acquired absence of both cervix and uterus
CPT/HCPCS: 74018; 99284